=== PATIENT | male | born 1990 | race Caucasian/White ===

== ENCOUNTER 2016-12-12 01:11 | Emergency (ER) | payer OTHER ==
[~2016-12-12] VITALS: Ht 182.9 cm; Wt 65.0 kg
[~2016-12-12 01:11] MED LIST: CEPH500C2 PO; HMLI SC
[2016-12-12 01:20] VITALS: TEMP 36.9; Ht 182.9 cm; Wt 65.0 kg
[2016-12-12] MEDS ORDERED: ALBUT/IPRATROP 3MG/0.5MG NEB 3 ML VIAL INH STA (01:31)
[2016-12-12] MEDS ORDERED: DEXAMETHASONE SOD INJ 10 MG/ML VIAL IV ONE (01:45)
[2016-12-12] MEDS ORDERED: INSPMPHMLG SQ (01:48)
[2016-12-12] MEDS ORDERED: SODIUM CHLORIDE 0.9% 1000ML 1,000 ML IV STA (02:03)
[2016-12-12 02:08] LABS: BASO % 1.5 %; BASO ABS # 0.08 K/uL (0-0.2); COMPLETE YES; EOS % 2.3 %; HEMATOCRIT 42.5 % (42-52); IG% 0.6 %; LYMPH % 29.6 %; LYMPH ABS # 1.53 K/uL (1.2-3.4); MEAN CELL VOLUME 95.5 fL (80-100); MEAN CORPUSCULAR HEMOGLOBIN 32.6 pg (25-34); MEAN CORPUSCULAR HGB CONC 34.1 g/dl (32-36); MEAN PLATELET VOLUME 8.9 fL (7.4-10.4); MONO % 3.9 %; NEUT % 62.1 %; PLATELET COUNT 215 K/uL (130-400); RED BLOOD COUNT 4.45 M/uL (4.7-6.1); WHITE BLOOD COUNT 5.17 K/uL (4.8-10.8)
[2016-12-12 02:25] LABS: BUN/CREATININE RATIO 12.7 (10-20); CALCIUM 8.6 mg/dl (8.5-10.1); CREATININE 1.5 mg/dl (0.60-1.40); POTASSIUM 3.9 mmol/L (3.5-5.1)
[2016-12-12 02:36] LABS: BETA-HYDROXYBUTYRATE 3.34 mg/dL (0.2-2.81)
[2016-12-12 03:05] LABS: URINE APPEARANCE CLEAR (CLEAR); URINE BILIRUBIN NEG (NEG); URINE COLOR YELLOW; URINE EPITHELIAL CELL AUTO 0-5 /lpf (0-5); URINE NITRITE NEG (NEG); URINE SPECIFIC GRAVITY 1.034 (1.000-1.030); UROBILINOGEN NEG (NEG)
[2016-12-12] MEDS ORDERED: NovoLIN-R INSULIN PER UNIT CHARGE SC STA (03:05)
[2016-12-12 03:07] LABS: MANUAL MICROSCOPIC REQUIRED? NO; REVIEW REQ? NO
[2016-12-12 03:09] VITALS: BP 137/73; PULSE 99; O2SAT 97
[2016-12-12] MEDS ORDERED: ALBUTEROL HFA 8 GM INHALER INH STA (03:14)
[2016-12-12] MEDS ORDERED: AZITHROMYCIN 250 MG TAB PO STA (03:14)
[2016-12-12 03:25] LABS: VENOUS BLOOD GAS PCO2 36 mmHg (38.0-50.0); VENOUS BLOOD GAS PO2 66 mmHg
--- NOTE | 2016-12-12 03:34 | EMERGENCY ROOM VISIT NOTE ---
History First contact with patient: :24 Chief Complaint: COUGH Stated Complaint: TROUBLE BREATHING Nursing Triage Summary: Patient c/o non-productive cough that began a few days ago. States, "Tonight it got so bad that I almost passed out." History of Present Illness The patient is a 26 year old male who presents to the Emergency Room with complaints of cough, congestion with subjective fever and chills for the past few days. Patient states his blood sugars have been running around 200 which are normal per him. Patient continues to smoke. Patient states he feels lightheaded. Patient denies chest pain, dyspnea, abdominal pain, vomiting, diarrhea, neck stiffness, headache, syncope. Review of Systems See HPI for pertinent positives & negatives. A total of 10 systems reviewed and were otherwise negative. Past Medical/Surgical History Medical Problems: (1) Abscess of right lower leg (2) Abscess, neck (3) Diabetes (4) Heel pain (5) Hx MRSA infection Social History Smoking Status: Current Every Day Smoker Alcohol Use: occasionally Marital Status: in relationship Housing Status: lives with significant other Occupation Status: employed Current/Historical Medications Scheduled Insulin Human Lispro (Humalog), SQ BID Allergies Coded Allergies: Hydrocodone (Verified Adverse Reaction, Mild, ITCHING, 12/12/16) Physical Exam Vital Signs Date Time Temp Pulse Resp B/P Pulse Ox O2 Delivery O2 Flow Rate FiO2 12/12/16 03:09 99 18 137/73 97 Room Air 12/12/16 01:21 98 Room Air 12/12/16 01:20 36.9 99 18 146/89 98 Room Air Physical Exam VITALS: Vitals are noted on the nurse's note and reviewed by myself. Vital signs stable. GENERAL: White male with tobacco odor, in no acute distress, nondiaphoretic, well-developed well-nourished. SKIN: The skin was without rashes, erythema, edema, or bruising. There is no tenting of the skin. Capillary reflex less than 2 seconds. HEAD: Normocephalic atraumatic. EARS: External auditory canals clear, tympanic membranes pearly corbett without erythema or effusion bilaterally. EYES: Pupils equal round and reactive to light and accommodation. Conjunctivae without injection, sclerae without icterus. Extraocular movements intact. NOSE: Patent, turbinates without inflammation or discharge. No sinus tenderness. MOUTH: Mucous membranes mildly dry. Pharynx without erythema or exudate. Uvula midline. Airway patent. Tongue does not deviate. NECK: Supple without nuchal rigidity. No lymphadenopathy. No thyromegaly. Cervical spine is nontender. No JVD. HEART: Regular rate and rhythm without murmurs gallops or rubs. LUNGS: Diffuse inspiratory and end expiratory wheezes, without rales or rhonchi. No dullness to percussion. No retractions or accessory muscle use. ABDOMEN: Positive bowel sounds x 4. Normal tympanic percussion. Soft, nontender, without masses or organomegaly. Tay sign negative. No guarding or rebound tenderness. MUSCULOSKELETAL: No muscle atrophy, erythema, or edema noted. NEURO: Patient was alert and oriented to person place and time. Normal sensation to light and sharp touch. No focal neurological deficits. Medical Decision & Procedures Laboratory Results 12/12/16 01:45 Red Blood Count 4.45, Mean Corpuscular Volume 95.5, Mean Corpuscular Hemoglobin 32.6, Mean Corpuscular Hemoglobin Concent 34.1, Mean Platelet Volume 8.9, Neutrophils (%) (Auto) 62.1, Lymphocytes (%) (Auto) 29.6, Monocytes (%) (Auto) 3.9, Eosinophils (%) (Auto) 2.3, Basophils (%) (Auto) 1.5, Neutrophils # (Auto) 3.21, Lymphocytes # (Auto) 1.53, Monocytes # (Auto) 0.20, Eosinophils # (Auto) 0.12, Basophils # (Auto) 0.08 12/12/16 01:45 Test 12/12/16 01:45 12/12/16 02:40 12/12/16 03:10 12/12/16 03:12 White Blood Count 5.17 K/uL (4.8-10.8) Red Blood Count 4.45 M/uL (4.7-6.1) Hemoglobin 14.5 g/dL (14.0-18.0) Hematocrit 42.5 % (42-52) Mean Corpuscular Volume 95.5 fL (80-100) Mean Corpuscular Hemoglobin 32.6 pg (25-34) Mean Corpuscular Hemoglobin Concent 34.1 g/dl (32-36) Platelet Count 215 K/uL (130-400) Mean Platelet Volume 8.9 fL (7.4-10.4) Neutrophils (%) (Auto) 62.1 % Lymphocytes (%) (Auto) 29.6 % Monocytes (%) (Auto) 3.9 % Eosinophils (%) (Auto) 2.3 % Basophils (%) (Auto) 1.5 % Neutrophils # (Auto) 3.21 K/uL (1.4-6.5) Lymphocytes # (Auto) 1.53 K/uL (1.2-3.4) Monocytes # (Auto) 0.20 K/uL (0.11-0.59) Eosinophils # (Auto) 0.12 K/uL (0-0.5) Basophils # (Auto) 0.08 K/uL (0-0.2) RDW Standard Deviation 44.6 fL (36.4-46.3) RDW Coefficient of Variation 12.9 % (11.5-14.5) Immature Granulocyte % (Auto) 0.6 % Immature Granulocyte # (Auto) 0.03 K/uL (0.00-0.02) Anion Gap 13.0 mmol/L (3-11) Est Creatinine Clear Calc Drug Dose 69.2 ml/min Estimated GFR () 73.9 Estimated GFR (Non- 63.8 BUN/Creatinine Ratio 12.7 (10-20) Calcium Level 8.6 mg/dl (8.5-10.1) Beta-Hydroxybutyric Acid 3.34 mg/dL (0.2-2.81) Urine Color YELLOW Urine Appearance CLEAR (CLEAR) Urine pH 5.0 (4.5-7.5) Urine Specific [place] 1.034 (1.000-1.030) Urine Protein NEG (NEG) Urine Glucose (UA) 3+ (NEG) Urine Ketones NEG (NEG) Urine Occult Blood NEG (NEG) Urine Nitrite NEG (NEG) Urine Bilirubin NEG (NEG) Urine Urobilinogen NEG (NEG) Urine Leukocyte Esterase NEG (NEG) Urine WBC (Auto) 1-5 /hpf (0-5) Urine RBC (Auto) 0-4 /hpf (0-4) Urine Hyaline Casts (Auto) 0 /lpf (0-5) Urine Epithelial Cells (Auto) 0-5 /lpf (0-5) Urine Bacteria (Auto) NEG (NEG) Venous Blood pH 7.42 (7.36-7.41) Venous Blood Partial Pressure CO2 36 mmHg (38.0-50.0) Venous Blood Partial Pressure O2 66 mmHg Venous Blood HCO3 23 mmol/L Venous Blood Oxygen Saturation 92.0 % Venous Blood Base Excess -1.0 mmol/L Bedside Glucose 169 mg/dl (70-99) Medications Administered Medications (Trade) Dose Ordered Sig/Zane Route Start Time Stop Time Status Last Admin Dose Admin Albuterol/ Ipratropium (Duoneb) 3 ml NOW STAT INH 12/12/16 01:31 12/12/16 01:33 DC 12/12/16 01:45 3 ML Dexamethasone Sodium Phosphate 10 mg 10 mg NOW ONCE IV 12/12/16 01:45 12/12/16 01:46 DC 12/12/16 01:45 10 MG Sodium Chloride (Nss 1000ml) 1,000 ml @ 999 mls/hr Q1H1M STAT IV 12/12/16 02:03 12/12/16 03:03 DC 12/12/16 02:13 999 MLS/HR Azithromycin (Zithromax Tab) 500 mg NOW STAT PO 12/12/16 03:14 12/12/16 03:15 DC 12/12/16 03:21 500 MG Albuterol (Ventolin Hfa Inhaler) 2 puffs ONE STAT INH 12/12/16 03:14 12/12/16 03:15 DC 12/12/16 03:21 2 PUFFS ED Course Prior records/ancillary studies reviewed. Triage Nursing notes reviewed. The patient's history was concerning for respiratory difficulties. Differential diagnosis: Etiologies such as infections, reactive airway disease, pneumonia, pneumothorax , COPD, CHF, cardiac ischemia, pulmonary embolism, musculoskeletal, gastrointestinal, as well as others were entertained. Physical examination: As above. ER treatment provided: Nebulizer, Decadron On reassessment the patient felt better. Diagnostic interpretation by me: The labs revealed hyperglycemia without DKA. Imaging studies: Chest x-ray no acute consolidation or pneumothorax per my interpretation This appears to be consistent with bronchitis with hyperglycemia without DKA. Upon further questioning, the patient states he likes to see how high and low his blood sugars can get. He was informed this is very dangerous. He was advised to take his medications as directed from his family care doctor. Patient felt much better after being medicated as above. No pneumonia on x- ray. He was strongly encouraged to quit smoking and monitor his blood sugars. He was advised to take medications as directed and to follow-up family care in a few days or here in the ER sooner for chest pain, difficulty breathing, fevers , worsening signs or symptoms or as needed. By the evaluation outlined above emergent etiologies such as CHF, cardiac ischemia, pulmonary embolism, pneumonia, pneumothorax, musculoskeletal, serious bacterial infections, as well as others were deemed relatively unlikely. The pt informed about the findings as listed above. All questions were answered and pleased with the treatment. Return instructions were outlined and the patient was discharged in stable condition. Outpatient prescription management: Prednisone, Zithromax Referral: The patient was referred back to their primary care physician for follow-up in 2 to 3 days for a recheck of the current condition. Medical Decision As above Impression Primary Impression: Acute bronchitis Additional Impression: Hyperglycemia due to type 1 diabetes mellitus Departure Information Dispostion Home / Self-Care Condition GOOD Referrals No Doctor, Assigned (PCP) Patient Instructions My [facility] Additional Instructions Monitor your blood sugars. Albuterol Inhaler: Take 2 puffs four times daily for five days, then as needed. Prednisone 50mg: Once daily until the prescription is finished. It is best to take this earlier in the day as some patients note occasional difficulty falling asleep when taken in the late evening. Azithromycin(Zithromax) 250mg: Take one a day for 4 additional days. All antibiotics can cause diarrhea. If this occurs and you feel worse or it does not resolve in 1-2 days follow up with your doctor or return to the Emergency Department as this could be signs of serious underlying problems. Any medication can cause an allergic reaction, stop the pills immediately and return to the ER for rash, hives, breathing difficulties, or swelling. Acetaminophen(Tylenol) may be used for fever or pain. Use 1000mg every six hours as needed. Avoid using more than 3000mg in a 24 hour period. (AND/OR) Ibuprofen(Motrin, Advil) may be used for fever or pain. Use 600mg every six hours as needed. Take with food. Avoid using more than 2400mg in a 24 hour period. Do not use 2400mg per day for more than three consecutive days without physician direction. Prolonged inappropriate use can lead to stomach upset or ulcers. Rest and drink plenty of fluids. Avoid smoke/smoking, fumes, dust, or any triggers in the past that may have affected your breathing. Continue current medications. Return to the ER for chest pain, difficulty breathing, fevers, vomiting, worsening of your condition, or as needed. Follow up with your primary physician this week for a recheck of your current condition. Problem Qualifiers Primary Impression: Acute bronchitis Bronchitis organism: unspecified organism Qualified Codes: J20.9 - Acute bronchitis, unspecified
[2016-12-12] MEDS ORDERED: PRED50TA PO (03:39)
[2016-12-12] MEDS ORDERED: AZIT250T PO (03:39)
[2016-12-12 04:43] LABS: INFLUENZA A PCR Neg for Influ A (NEG); INFLUENZA B PCR Neg for Influ B (NEG)
--- NOTE | 2016-12-12 06:47 | DIAGNOSTIC IMAGING REPORT ---
CHEST 2 VIEWS ROUTINE CLINICAL HISTORY: cough/fever COMPARISON STUDY: 09/25/2016 FINDINGS: The cardiac and mediastinal contours are normal. There is no evidence of focal pulmonary consolidation. There is no evidence of failure. No pleural effusions are visualized.[ IMPRESSION: No active disease in the chest. Electronically signed by: Will Neri M.D. 12/12/2016 6:45 AM Dictated Date/Time: 12/12/2016 6:45 AM
[2016-12-27] MEDS ORDERED: INSDGIPEN SC (16:00)
[2016-12-27] MEDS ORDERED: CEFD1CAP14 PO (16:00)
[2017-04-15] MEDS ORDERED: LEVO-366 PO (13:56)
== END 2016-12-12 03:48 | disposition home or self-care (01) ==
LOC: C.EDB 01:11 → C.EDA 03:48
DX: J20.9 Acute bronchitis, unspecified (principal); R06.00 Dyspnea, unspecified; E11.65 Type 2 diabetes mellitus with hyperglycemia

== ENCOUNTER 2016-12-25 15:25 | Inpatient (IN) | payer OTHER ==
[~2016-12-25] VITALS: Ht 182.9 cm; Wt 61.5 kg
[2016-12-25] VITALS (14 sets, daily range): BP systolic 88–127; BP diastolic 45–73; PULSE 102–123; TEMP 36.6–36.8; O2SAT 93–100; BMI 18.0
[~2016-12-25 15:25] MED LIST changes: -CEPH500C2 PO; -HMLI SC; +INSPMPHMLG SQ
[2016-12-25] MEDS ORDERED: SODIUM CHLORIDE 0.9% 1000ML 1,000 ML IV STA ×2 (15:35→16:47)
[2016-12-25] MEDS ORDERED: MoRPHine SULFATE 4 MG/ML 1 ML CARP\\VIAL IV STA (15:35)
[2016-12-25] MEDS ORDERED: ONDANSETRON INJ 2 MG/ML 2 ML VIAL IV STA (15:35)
[2016-12-25 15:51] LABS: BASO % 0.8 %; BASO ABS # 0.09 K/uL (0-0.2); COMPLETE YES; EOS % 0.7 %; HEMATOCRIT 49.6 % (42-52); IG% 1.3 %; LYMPH % 26.2 %; LYMPH ABS # 2.93 K/uL (1.2-3.4); MEAN CELL VOLUME 94.1 fL (80-100); MEAN CORPUSCULAR HEMOGLOBIN 31.7 pg (25-34); MEAN CORPUSCULAR HGB CONC 33.7 g/dl (32-36); MONO % 4.2 %; NEUT % 66.8 %; PLATELET COUNT 289 K/uL (130-400); RED BLOOD COUNT 5.27 M/uL (4.7-6.1); WHITE BLOOD COUNT 11.19 K/uL (4.8-10.8)
[2016-12-25 16:44] LABS: BUN/CREATININE RATIO 16.6 (10-20); CALCIUM 9.5 mg/dl (8.5-10.1); POTASSIUM 4.7 mmol/L (3.5-5.1)
[2016-12-25] MEDS ORDERED: INSULIN IV INFUSION PROTOCOL STA ×2 (16:47→17:46)
[2016-12-25] MEDS ORDERED: DKA GOAL RANGE 150-250 mg/dl 1 EA ONE ×2 (17:00→18:00)
[2016-12-25] MEDS ORDERED: MODERATE STRESS LEVEL ONE (17:00)
[2016-12-25 17:22] LABS: BETA-HYDROXYBUTYRATE 104.48 mg/dL (0.2-2.81)
[2016-12-25 17:28] LABS: VEN BLD GAS O2 SATURATION 89.1 %; VEN BLOOD GAS BASE EXCESS -16.9 mmol/L
--- NOTE | 2016-12-25 17:31 | EMERGENCY ROOM VISIT NOTE ---
History First contact with patient: 15:27 Chief Complaint: HYPERGLYCEMIA Stated Complaint: ABD PAIN Nursing Triage Summary: PT PRESENTS VIA ALS FROM HOME. PT IS A TYPE I DIABETIC, LAST NIGHT BSG IN THE 200'S, NO ISSUES. THIS AM PT STARTED VOMITING AT 0930 AND IS C/O ABDOMINAL PAIN 07/31. PT TOOK HIS NOVOLOG THIS AM, 25 UNITS. BSG EN ROUTE 549. PT PRESENTS AGITATED, UNWILLING TO DISCUSS HIS CARE OR NEEDS, VOMITING AND C/O ABDOMINAL PAIN. History of Present Illness The patient is a 26 year old male who presents to the Emergency Room via ALS for evaluation of vomiting and hyperglycemia. The patient is a type I diabetic. He reports that last night, his blood glucose were in the 200s, which is normal for him. He reports that this morning he began to have nausea and vomiting and is complaining of generalized abdominal pain which comes and goes. He reports he took 25 units of NovoLog this morning, which is his usual dose. Per EMS, his blood glucose was 549 [address] route[address] The patient reports he has been in DKA before and this feels similar. He denies any headache, neck pain, chest pain, shortness of breath, numbness, weakness, fevers or chills. Review of Systems A complete 10-point Review of Systems was discussed with the patient, with pertinent positives and negatives listed in the History of Present Illness. All remaining Review of Systems questions can be considered negative unless otherwise specified. Past Medical/Surgical History Medical Problems: (1) Abscess of right lower leg (2) Abscess, neck (3) Diabetes (4) DKA (diabetic ketoacidoses) (5) Heel pain (6) Hx MRSA infection Social History Smoking Status: Current Every Day Smoker Alcohol Use: occasionally Marital Status: in relationship Housing Status: lives with significant other Occupation Status: employed Current/Historical Medications Scheduled Insulin Human Lispro (Humalog), SQ BID Allergies Coded Allergies: Hydrocodone (Verified Adverse Reaction, Mild, ITCHING, 12/12/16) Physical Exam Vital Signs Date Time Temp Pulse Resp B/P Pulse Ox O2 Delivery O2 Flow Rate FiO2 12/25/16 15:38 36.6 108 22 151/77 97 Room Air Physical Exam VITALS: Vitals are noted on the nurse's note and reviewed by myself. Vital signs stable. GENERAL: This is a 26-year-old male, agitated and actively vomiting, well- developed well-nourished. SKIN: Capillary reflex less than 2 seconds. HEENT: Normocephalic. PERRLA. EOMI. Nares patent. Mucous membranes moist. Neck is supple without nuchal rigidity. HEART: Regular rate and rhythm without murmurs gallops or rubs. LUNGS: Clear to auscultation bilaterally without wheezes, rales or rhonchi. No retractions or accessory muscle use. ABDOMEN: Positive bowel sounds x 4. Soft, nondistended and nontender. NEURO: Patient was alert and oriented to person place and time. Normal sensation to light and sharp touch. No focal neurological deficits. Medical Decision & Procedures Laboratory Results 12/25/16 15:30 Red Blood Count 5.27, Mean Corpuscular Volume 94.1, Mean Corpuscular Hemoglobin 31.7, Mean Corpuscular Hemoglobin Concent 33.7, Mean Platelet Volume 9.0, Neutrophils (%) (Auto) 66.8, Lymphocytes (%) (Auto) 26.2, Monocytes (%) (Auto) 4.2, Eosinophils (%) (Auto) 0.7, Basophils (%) (Auto) 0.8, Neutrophils # (Auto) 7.48, Lymphocytes # (Auto) 2.93, Monocytes # (Auto) 0.47, Eosinophils # (Auto) 0.08, Basophils # (Auto) 0.09 Test 12/25/16 15:30 12/25/16 17:10 White Blood Count 11.19 K/uL (4.8-10.8) Red Blood Count 5.27 M/uL (4.7-6.1) Hemoglobin 16.7 g/dL (14.0-18.0) Hematocrit 49.6 % (42-52) Mean Corpuscular Volume 94.1 fL (80-100) Mean Corpuscular Hemoglobin 31.7 pg (25-34) Mean Corpuscular Hemoglobin Concent 33.7 g/dl (32-36) Platelet Count 289 K/uL (130-400) Mean Platelet Volume 9.0 fL (7.4-10.4) Neutrophils (%) (Auto) 66.8 % Lymphocytes (%) (Auto) 26.2 % Monocytes (%) (Auto) 4.2 % Eosinophils (%) (Auto) 0.7 % Basophils (%) (Auto) 0.8 % Neutrophils # (Auto) 7.48 K/uL (1.4-6.5) Lymphocytes # (Auto) 2.93 K/uL (1.2-3.4) Monocytes # (Auto) 0.47 K/uL (0.11-0.59) Eosinophils # (Auto) 0.08 K/uL (0-0.5) Basophils # (Auto) 0.09 K/uL (0-0.2) RDW Standard Deviation 43.9 fL (36.4-46.3) RDW Coefficient of Variation 12.6 % (11.5-14.5) Immature Granulocyte % (Auto) 1.3 % Immature Granulocyte # (Auto) 0.14 K/uL (0.00-0.02) Prothrombin Time 10.2 SECONDS (9.0-12.0) Prothromb Time International Ratio 1.0 (0.9-1.1) Activated Partial Thromboplast Time 23.1 SECONDS (21.0-31.0) Partial Thromboplastin Ratio 0.9 Total Bilirubin 1.5 mg/dl (0.2-1) Aspartate Amino Transf (AST/SGOT) 57 U/L (15-37) Alanine Aminotransferase (ALT/SGPT) 87 U/L (12-78) Alkaline Phosphatase 113 U/L (45-117) Total Protein 8.7 gm/dl (6.4-8.2) Albumin 4.3 gm/dl (3.4-5.0) Globulin 4.4 gm/dl (2.5-4.0) Albumin/Globulin Ratio 1.0 (0.9-2) Lipase 72 U/L (73-393) Chemistry Specimen Hemolysis Venous Blood pH 7.21 (7.36-7.41) Venous Blood Partial Pressure CO2 23 mmHg (38.0-50.0) Venous Blood Partial Pressure O2 67 mmHg Venous Blood HCO3 9 mmol/L Venous Blood Oxygen Saturation 89.1 % Venous Blood Base Excess -16.9 mmol/L Medications Administered Medications (Trade) Dose Ordered Sig/Zane Route Start Time Stop Time Status Last Admin Dose Admin Sodium Chloride (Nss 1000ml) 1,000 ml @ 999 mls/hr Q1H1M STAT IV 12/25/16 15:35 12/25/16 16:35 DC 12/25/16 15:52 999 MLS/HR Morphine Sulfate (MoRPHine SULFATE INJ) 4 mg NOW STAT IV 12/25/16 15:35 12/25/16 15:37 DC 12/25/16 15:53 4 MG Ondansetron HCl (Zofran Inj) 4 mg NOW STAT IV 12/25/16 15:35 12/25/16 15:37 DC 12/25/16 15:52 4 MG Miscellaneous (Insulin Protocol Dka Goal Range) 1 ea ONE ONCE N/A 12/25/16 17:00 12/25/16 17:01 DC 12/25/16 17:00 1 EA Insulin Human Regular (Insulin IV Infusion Protocol) 1 ea NOW STAT N/A 12/25/16 16:47 12/25/16 16:51 DC 12/25/16 16:47 1 EA Miscellaneous 1 ea 1 ea ONE ONCE N/A 12/25/16 17:00 12/25/16 17:01 DC 12/25/16 17:00 1 EA Sodium Chloride (Nss 1000ml) 1,000 ml @ 999 mls/hr Q1H1M STAT IV 12/25/16 16:47 12/25/16 17:47 DC 12/25/16 16:47 999 MLS/HR Medical Decision Differential diagnosis includes hyperglycemia, diabetic ketoacidosis, infection , metabolic abnormality, among others. The patient was evaluated as above. Labs were drawn and IV access was obtained. Imaging studies were performed and read by radiology as above. The patient was medicated as above. The patient was reassessed multiple times during their stay in the emergency department and remained in stable condition. The patient is a 26-year-old male who presents today complaining of hyperglycemia and vomiting. Labs revealed a blood glucose of 593 with significant elevation of beta hydroxybutyrate. Bicarbonate was found to be low at 15. Patient does have an anion gap of 27. VBGs were drawn and were pending. Potassium was within normal limits and the insulin bolus and drip were ordered. The patient was medicated with a total of 2 L normal saline solution in the emergency department. Case was discussed with the hospitalist, Dr. Peterson, who agreed to evaluate the patient for admission. The patient's case was reviewed with Dr. Schaeffer, ED attending physician, who agreed with my assessment and treatment plan. Impression Primary Impression: DKA (diabetic ketoacidoses) Critical Care I have personally spent greater than 30 minutes of critical care time in the direct management of this patient. This includes bedside care, interpretation of diagnostic studies, and testing, discussion with consultants, patient, and family members, and other required patient management activities. This 30 minutes is in excess of all separately billable procedures. Departure Information Referrals Nakul Garcia M.D. (PCP) Patient Instructions My [facility] Problem Qualifiers Primary Impression: DKA (diabetic ketoacidoses) Diabetes mellitus type: type 1 Diabetes mellitus complication detail: without coma Qualified Codes: E10.10 - Type 1 diabetes mellitus with ketoacidosis without coma
[2016-12-25] MEDS ORDERED: DEXTROSE 50% 50 ML SYR IV PRN (17:45)
[2016-12-25] MEDS ORDERED: PROMETHAZINE HCL INJ 25 MG/ML 1 ML VIAL IM STA (17:45)
[2016-12-25] MEDS ORDERED: INSULIN HUMAN REGULAR IV BOLUS 3 UNIT in SYRINGE 0 ML IV ONE (17:45)
[2016-12-25] MEDS ORDERED: INSULIN REGULAR 250 UNITS in SODIUM CHLORIDE 0.9% 250ML 250 ML IV SCH (17:45)
[2016-12-25] MEDS ORDERED: GLUCAGON FOR INJ 1 MG VIAL SQ PRN (17:45)
[2016-12-25] MEDS ORDERED: GLUCOSE 40% GEL 15 GM TUBE PO PRN (17:45)
[2016-12-25] MEDS ORDERED: GLUCOSE 10 TABS/TUBE PO PRN (17:45)
[2016-12-25] MEDS ORDERED: SODIUM CHLORIDE 0.9% 1000ML 1,000 ML IV SCH (17:45)
[2016-12-25] MEDS ORDERED: ONDANSETRON INJ 2 MG/ML 2 ML VIAL IV PRN (17:45)
[2016-12-25] MEDS ORDERED: MoRPHine SULFATE 4 MG/ML 1 ML CARP\\VIAL IV PRN (18:00)
[2016-12-25] MEDS ORDERED: DiphenhydrAMINE HCL 50 MG/ML VIAL IV PRN (18:00)
[2016-12-25] MEDS ORDERED: MoRPHine SULFATE 10 MG/ML CARP/VIAL IV PRN (18:00)
[2016-12-25] MEDS ORDERED: ACETAMINOPHEN 325 MG TAB PO PRN (18:00)
[2016-12-25] MEDS ORDERED: INSULIN ASPART 100 UNITS/ML 3 ML PEN SC SCH (18:40)
[2016-12-25] MEDS ORDERED: NURSING VERBAL MED ORDER ONE ×2 (19:00→22:15)
[2016-12-25 19:13] LABS: PARTIAL THROMBOPLASTIN RATIO 0.9; PROTHROMBIN TIME (PATIENT) 10.2 SECONDS (9.0-12.0)
[2016-12-25] MEDS: ENOXAPARIN 40 MG/0.4 ML SYR SQ SCH (19:56)
[2016-12-25] MEDS: PANTOprazole INJ 40 MG in SYRINGE 0 ML IV SCH (19:56)
[2016-12-25] MEDS ORDERED: SODIUM CHLOR 0.45% + 20MEQ KCL 1,000 ML IV SCH (20:00)
[2016-12-25 20:04] LABS: URINE APPEARANCE CLEAR (CLEAR); URINE BILIRUBIN NEG (NEG); URINE COLOR YELLOW; URINE EPITHELIAL CELL AUTO 0-5 /lpf (0-5); URINE NITRITE NEG (NEG); URINE SPECIFIC GRAVITY 1.022 (1.000-1.030); UROBILINOGEN NEG (NEG); ZZUR CULT IF INDIC CLEAN CATCH NO
[2016-12-25 20:06] LABS: MANUAL MICROSCOPIC REQUIRED? NO; REVIEW REQ? NO
[2016-12-25 20:43] LABS: BUN/CREATININE RATIO 15.1 (10-20); CREATININE 1.1 mg/dl (0.60-1.40)
[2016-12-25 20:57] LABS: CALCIUM 7.9 mg/dl (8.5-10.1)
[2016-12-25] MEDS: INSULIN ASPART 100 UNITS/ML 3 ML PEN SC SCH (21:00)
[2016-12-25 21:19] LABS: BETA-HYDROXYBUTYRATE 98.68 mg/dL (0.2-2.81)
--- NOTE | 2016-12-25 21:59 | HISTORY & PHYSICAL EXAMINATION ---
DATE OF ADMISSION: 12/25/2016 CHIEF COMPLAINT: Nausea. HISTORY OF PRESENT ILLNESS: This is a 26-year-old male patient who presented to the Emergency Department with nausea, vomiting and suspicion that he was having an elevated sugar. He has had diabetes type 1 since age [age] and has numerous times had elevated sugars and apparently episodes of DKA. PAST MEDICAL HISTORY: Significant for; diabetic ketoacidosis and type 1 diabetes. He had an abscess of his neck. PAST SURGERIES: None reported. MEDICATIONS: He uses insulin. SOCIAL HISTORY: The patient is single. He is with his girlfriend. Currently is unemployed. He uses alcohol recreationally. He never reported illicit substances. He is a smoker. FAMILY HISTORY: Noncontributory. REVIEW OF SYSTEMS: A complete 10-system review was performed and was negative other than the positives that are to be placed in the HPI. He told me that he started to feel ill this morning. PHYSICAL EXAMINATION: VITAL SIGNS: Temperature is 36.6, pulse is 108, respiratory rate 22, blood pressure 151/77 with a pulse ox of 97% on room air. GENERAL: The patient is lying in bed, in mild distress secondary to abdominal pain and vomiting. HEENT: TMs are intact. No inflammation. Extraocular muscles are intact. Pupils are equal, round and reactive to light and accommodation. His mucous membranes were dry. NECK: Showed no JVD or lymphadenopathy. LUNGS: Clear to auscultation bilaterally. No rales, rhonchi or wheezes. HEART: Regular, normal S1, S2, without murmurs, rubs or gallops. ABDOMEN: Soft, nontender and nondistended, positive bowel sounds. EXTREMITIES: No clubbing, cyanosis or edema. NEUROLOGIC: Cranial nerves II-XII are grossly intact and nonfocal. SKIN: Warm and dry, without rashes. PSYCHIATRIC: The patient was quiet and resting. He would feel nauseated if he moved around too much. LABORATORY DATA: INR of 1.0. White count 11.19, hemoglobin 16.7, hematocrit 49.6 and platelet count of 289,000. Blood gas showed a pH of 7.21, CO2 of 23, pO2 of 67, base of 9. Sodium 132, potassium 4.7, chloride 90, CO2 15, anion gap 27, total bilirubin 1.5, AST of 57, ALT of 87 lipase is 72. His sugar was 593. His beta hydroxybutyric acid was 104.48, BUN 17, creatinine 1.0. Urinalysis showed trace protein, +4 ketones and trace occult blood. ASSESSMENT: 1. Diabetic ketoacidosis; based on his initial numbers we will call him moderate with a history of type 1 diabetes. 2. Nausea and vomiting. 3. Dehydration. PLAN: The patient is admitted to the intensive care unit with an accounting professor consult. He is placed on an insulin drip and given generous IV fluids. His sugars will be monitored every hour until he becomes more stabilized. We will follow his electrolytes and serum acetone level. He is given antiemetics, pain control and Protonix for gastritis prophylaxis, subQ Lovenox for DVT prophylaxis as well as TEDs and SCDs. I did speak with Dr. Hunter, the accounting professor regarding the case.
[2016-12-25] MEDS: D5W AND 1/2NSS + 20MEQ KCL 1,000 ML IV SCH (22:51)
--- NOTE | 2016-12-25 23:07 | CRITICAL CARE CONSULTATION ---
DATE OF CONSULTATION: 12/25/2016 CHIEF COMPLAINT: Abdominal pain. HISTORY OF PRESENT ILLNESS: Mr. Carrion is a 26-year-old type 1 diabetic since the age of 4, who presented to the Emergency Department today complaining of abdominal pain. According to the Emergency Department notes, he had blood sugars in the 200s last night and took his 25 units of NovoLog this morning. He started having abdominal pain 10/10 this morning as well. He has been having vomiting and dry heaving. When I tried to interview him in the Emergency Department, he was lying half off of the stretcher and dry heaving. From what I can tell the abdominal pain is at the top of his abdomen and it is constant. He may have vomited some coffee ground material, but he is not really sure. He was not able to tell me how many times he has vomited, but denies seeing any blood. He was unable to tell me whether or not he has been taking his insulin properly or what his dose is before he suddenly got up and went into the bathroom, telling me he had fecal incontinence. He denied shortness of breath, frequency or urgency. He did admit to feeling thirsty. In the ER, he received 1 liter of IV fluids as well as 8 mg of Zofran. Insulin had been ordered, but he had not received it yet. He was just beginning his second liter of fluids when I saw him. PAST MEDICAL HISTORY: Diabetes mellitus type 1 since the age of 4, bronchitis, otitis externa, cellulitis, neck abscess and right lower extremity abscess. ALLERGIES: HYDROCODONE WHICH CAUSES ITCHING. OUTPATIENT MEDICATIONS: According to his listed pharmacy are; Humalog up to 100 units daily last filled on December 13 and Lantus up to 35 mg at bedtime as directed none filled since August of last year. SOCIAL HISTORY: He has smoked 1 pack of cigarettes per day for 12 years and rarely drinks alcohol. He lives with his best friend. FAMILY HISTORY: Noncontributory. REVIEW OF SYSTEMS: Limited due to his nausea and distraction from it. PHYSICAL EXAMINATION: VITAL SIGNS: Temperature 36.6, heart rate 108, respiratory rate 22, blood pressure 151/77 and oxygen saturation 97% on room air. HEENT: Not able to be examined as he would not turn over on the bed. LUNGS: Clear to auscultation bilaterally. HEART: Tachycardic and regular. ABDOMEN: Not able to be performed as he would not turn over. EXTREMITIES: Warm. No edema. He has multiple tattoos. LABORATORY DATA: White blood cell count 11.19, hemoglobin 16.7, hematocrit 49.6 and platelets 289. Sodium 132, potassium 4.7, chloride 90, CO2 15, BUN 17, creatinine 1, blood sugar 593, total bilirubin 1.5, AST 57, ALT 87, total protein 8.7, lipase 72. Beta-hydroxybutyrate 104. Urinalysis; pending. pH 7.21, pCO2 23, pO2 67 and HCO3 9. There is no new imaging data presently. IMPRESSION: 1. Diabetic ketoacidosis. 2. Abdominal pain, likely secondary to #1. 3. Pseudohyponatremia. 4. Nausea and vomiting. 5. Tobacco use. 6. History of neck and lower extremity abscesses. PLAN: 1. I asked the Emergency Department to give him some Phenergan. 2. Re-evaluate his exam when he is more comfortable and gain and additional history. 3. Continue volume resuscitation with IV fluids. 4. Check chemistries every 4 hours. 5. Insulin infusion. 6. Change IV fluids to include dextrose once the blood sugar is at 250 or below. 7. IV Proton pump inhibitor b.i.d. 8. SCDs for DVT prophylaxis. 9. Check hemoglobin A1c. 10. Consider morphine for pain control. 11. Maintain n.p.o. for now. I discussed the patient's care with Dr. Omalley. Again, I will re-evaluate the patient when he is able to give a more detailed history and will also re-examine him then. Critical care time; 35 minutes.
[2016-12-26] VITALS (13 sets, daily range): BP systolic 97–126; BP diastolic 51–83; PULSE 85–115; TEMP 36.3–37.2; O2SAT 96–100; Ht 182.9 cm; Wt 61.5 kg
[2016-12-26 01:01] LABS: BUN/CREATININE RATIO 10.7 (10-20); CREATININE 1.1 mg/dl (0.60-1.40); HEMATOCRIT 40.7 % (42-52); MEAN CELL VOLUME 92.9 fL (80-100); MEAN CORPUSCULAR HEMOGLOBIN 31.5 pg (25-34); MEAN CORPUSCULAR HGB CONC 33.9 g/dl (32-36); MEAN PLATELET VOLUME 8.4 fL (7.4-10.4); PLATELET COUNT 265 K/uL (130-400); POTASSIUM 4.3 mmol/L (3.5-5.1); RED BLOOD COUNT 4.38 M/uL (4.7-6.1); WHITE BLOOD COUNT 29.39 K/uL (4.8-10.8)
[2016-12-26 01:03] LABS: BASO % 0.3 %; BASO ABS # 0.08 K/uL (0-0.2); COMPLETE YES; EOS % 0.1 %; IG% 1.6 %; LYMPH % 9.7 %; LYMPH ABS # 2.84 K/uL (1.2-3.4); MONO % 6.1 %; NEUT % 82.2 %
[2016-12-26 01:30] LABS: BETA-HYDROXYBUTYRATE 56.06 mg/dL (0.2-2.81)
[2016-12-26] MEDS ORDERED: COUGH DROP (SUGAR FREE) LOZ 24 LOZ/1 BOX ONE (04:23)
[2016-12-26] MEDS ORDERED: COUGH DROP (SUGAR FREE) LOZ 24 LOZ/1 BOX PO PRN (04:45)
[2016-12-26] MEDS: D5W AND 1/2NSS + 20MEQ KCL 1,000 ML IV SCH ×3 (05:59→13:28)
[2016-12-26 07:24] LABS: HEMATOCRIT 39.2 % (42-52); MEAN CELL VOLUME 94.9 fL (80-100); MEAN CORPUSCULAR HEMOGLOBIN 32.2 pg (25-34); MEAN CORPUSCULAR HGB CONC 33.9 g/dl (32-36); MEAN PLATELET VOLUME 8.3 fL (7.4-10.4); PLATELET COUNT 218 K/uL (130-400); RED BLOOD COUNT 4.13 M/uL (4.7-6.1); WHITE BLOOD COUNT 24.03 K/uL (4.8-10.8)
[2016-12-26 07:43] LABS: BUN/CREATININE RATIO 7.2 (10-20); CALCIUM 7.9 mg/dl (8.5-10.1); CREATININE 1.2 mg/dl (0.60-1.40); MAGNESIUM 2.1 mg/dl (1.8-2.4); PHOSPHORUS 2.4 mg/dl (2.5-4.9); POTASSIUM 3.8 mmol/L (3.5-5.1)
[2016-12-26] MEDS: INSULIN ASPART 100 UNITS/ML 3 ML PEN SC SCH ×4 (08:00→21:32)
[2016-12-26] MEDS ORDERED: PHARMACY GLYCEMIC MGMT CONSULT PRN (08:12)
[2016-12-26] MEDS: PANTOprazole INJ 40 MG in SYRINGE 0 ML IV SCH ×2 (08:57→21:47)
--- NOTE | 2016-12-26 08:57 | DIAGNOSTIC IMAGING REPORT ---
CHEST ONE VIEW PORTABLE HISTORY: cough COMPARISON: Chest 12/12/2016. FINDINGS: No pleural effusions. No pneumothorax. The heart is borderline enlarged. This remains unchanged. No new focal lung consolidations to suggest pneumonia. IMPRESSION: Stable cardiac prominence. No focal lung consolidations. Electronically signed by: Aniket Elena M.D. 12/26/2016 8:55 AM Dictated Date/Time: 12/26/2016 8:54 AM
[2016-12-26] MEDS ORDERED: CHLORASEPTIC 1.4% SOLN 180 ML BTL MT PRN (09:30)
[2016-12-26] MEDS ORDERED: ACETAMINOPHEN IV 650 MG / 65ML IV ONE (09:45)
--- NOTE | 2016-12-26 09:49 | CRITICAL CARE PROGRESS NOTE ---
DATE: 12/26/2016 DATE: 12/26/2016. GENERAL INFORMATION: There were no acute events overnight. He has been maintained on an insulin infusion as well as D5 half normal saline with 20 mEq of potassium per liter at 200 mL per hour. He denies nausea or vomiting and his abdominal pain has resolved. His biggest complaint is a sore throat. He reports he was feeling fine prior to waking up feeling lousy. Yesterday he took 10 units of Humalog but did not check his blood sugar in the morning. He did not have a sore throat prior to starting to vomit and he denies chest pain, shortness of breath, productive cough. PHYSICAL EXAMINATION: VITAL SIGNS: Temperature 37.2, heart rate 104 to 106, respiratory rate 12-14, blood pressure 88-108/40s-60s. Oxygen saturation 98% on room air. 24-hour fluid balance positive 1.2 liters. GENERAL: He will awaken easily and overall looks sickly. HEAD, EYES, EARS, NOSE, AND THROAT: Posterior pharynx was a little bit difficult to visualize and mildly erythematous. NECK: Without adenopathy. LUNGS: Clear to auscultation bilaterally. No rales, rhonchi or wheezes. HEART: Tachycardic and regular. ABDOMEN: Flat, soft, nondistended, nontender. Active bowel sounds. EXTREMITIES: Very thin, warm. No edema. LABORATORY DATA: Sodium 144, potassium 3.8, chloride 111, CO2 20, BUN 9, creatinine 1.2, blood sugar 146, calcium 7.9, phosphorus 2.4, magnesium 2.1. White blood cell count 24.03, hemoglobin 13, hematocrit 39.2, platelets 218. MEDICATIONS AND INFUSIONS: Acetaminophen, Benadryl, Lovenox, insulin sliding scale, insulin infusion, menthol lozenges, morphine, Zofran, Protonix, IV fluids. IMAGING: Portable chest x-ray from this morning shows no acute infiltrate or acute abnormality. IMPRESSION: 1. Diabetic ketoacidosis with improvement of his anion gap. 2. Nausea and vomiting, resolved. 3. Abdominal pain, resolved. 4. Sore throat, likely secondary to the vomiting yesterday. 5. Leukocytosis. He has been afebrile. Chest x-ray is clear. Urinalysis yesterday unremarkable regarding any traces of infection. 6. History of tobacco use. He has declined a nicotine patch. 7. Hypophosphatemia and hypokalemia. PLAN: 1. Continue insulin infusion and check a PRP this afternoon. 2. Replete electrolytes. 3. Rapid strep test. 4. Chloraseptic spray and Tylenol for pain. 5. Continue DVT and GI prophylaxis. 6. senior health educator is seeing him presently. 7. Continue IV fluids for now and plan to decrease them this afternoon when he is started on subcutaneous insulin. 8. Glycemic consult and check HbA1C. I expect he may be able to be transferred from the Intensive Care Unit later today. DEBBIE
[2016-12-26] MEDS ORDERED: INSULIN REGULAR 250 UNITS in SODIUM CHLORIDE 0.9% 250ML 250 ML IV SCH (11:30)
[2016-12-26 13:42] LABS: BUN/CREATININE RATIO 7.6 (10-20); CALCIUM 7.9 mg/dl (8.5-10.1); CREATININE 1.1 mg/dl (0.60-1.40); MAGNESIUM 2.1 mg/dl (1.8-2.4); PHOSPHORUS 2.3 mg/dl (2.5-4.9); POTASSIUM 3.8 mmol/L (3.5-5.1)
[2016-12-26] MEDS ORDERED: POTASSIUM PHOS 3 MMOL/1 ML INFUSION IV STA (13:46)
--- NOTE | 2016-12-26 13:47 | Pharmacy Progress Note ---
Glycemic Control Intl Consult Date of Service Dec 26, 2016. Scope Glycemic Pharmacist consulted for glycemic control and to write orders per [facility] inpatient glycemic control protocol Objective Weight (Kilograms): 61.500 Accuchecks BSG (last 24hrs): Test 12/25/16 15:30 12/25/16 15:52 12/25/16 18:46 12/25/16 19:43 Random Glucose 593 mg/dl (70-99) Bedside Glucose 535 mg/dl (70-99) 476 mg/dl (70-99) 420 mg/dl (70-99) Test 12/25/16 19:49 12/25/16 20:45 12/25/16 21:35 12/25/16 22:45 Random Glucose 411 mg/dl (70-99) Bedside Glucose 226 mg/dl (70-99) 209 mg/dl (70-99) 139 mg/dl (70-99) Test 12/25/16 23:05 12/25/16 23:22 12/26/16 00:16 12/26/16 00:25 Bedside Glucose 137 mg/dl (70-99) 159 mg/dl (70-99) 217 mg/dl (70-99) Random Glucose 229 mg/dl (70-99) Test 12/26/16 01:12 12/26/16 02:09 12/26/16 03:15 12/26/16 04:15 Bedside Glucose 152 mg/dl (70-99) 129 mg/dl (70-99) 156 mg/dl (70-99) 156 mg/dl (70-99) Test 12/26/16 05:31 12/26/16 06:30 12/26/16 07:15 12/26/16 07:38 Bedside Glucose 150 mg/dl (70-99) 150 mg/dl (70-99) 129 mg/dl (70-99) Random Glucose 146 mg/dl (70-99) Test 12/26/16 08:40 12/26/16 09:45 12/26/16 13:00 Bedside Glucose 136 mg/dl (70-99) 132 mg/dl (70-99) Laboratory Data (last 24hrs) Test 12/25/16 15:30 12/25/16 19:49 12/26/16 00:25 12/26/16 07:15 Anion Gap 27.0 mmol/L 24.0 mmol/L 19.0 mmol/L 13.0 mmol/L BUN/Creatinine Ratio 16.6 15.1 10.7 7.2 Blood Urea Nitrogen 17 mg/dl 17 mg/dl 12 mg/dl 9 mg/dl Creatinine 1.00 mg/dl 1.10 mg/dl 1.10 mg/dl 1.20 mg/dl Potassium Level 4.7 mmol/L 4.0 mmol/L 4.3 mmol/L 3.8 mmol/L Sodium Level 132 mmol/L 141 mmol/L 144 mmol/L 144 mmol/L White Blood Count 11.19 K/uL 29.39 K/uL 24.03 K/uL Red Blood Count 5.27 M/uL 4.38 M/uL Hemoglobin 16.7 g/dL 13.8 g/dL Hematocrit 49.6 % 40.7 % Mean Corpuscular Volume 94.1 fL 92.9 fL Mean Corpuscular Hemoglobin 31.7 pg 31.5 pg Mean Corpuscular Hemoglobin Concent 33.7 g/dl 33.9 g/dl Platelet Count 289 K/uL 265 K/uL Mean Platelet Volume 9.0 fL 8.4 fL Neutrophils (%) (Auto) 66.8 % 82.2 % Lymphocytes (%) (Auto) 26.2 % 9.7 % Monocytes (%) (Auto) 4.2 % 6.1 % Eosinophils (%) (Auto) 0.7 % 0.1 % Basophils (%) (Auto) 0.8 % 0.3 % Neutrophils # (Auto) 7.48 K/uL 24.19 K/uL Lymphocytes # (Auto) 2.93 K/uL 2.84 K/uL Monocytes # (Auto) 0.47 K/uL 1.78 K/uL Eosinophils # (Auto) 0.08 K/uL 0.03 K/uL Basophils # (Auto) 0.09 K/uL 0.08 K/uL Test 12/26/16 13:00 HbA1c Pending Test 12/26/16 13:00 Recent Pertinent Medications Outpatient Anti-diabetic Regimen: * Humalog BID The patient is currently receiving: * Insulin gtt * Moderate stress * Goal 140-180 mg/dL * Currently running at 1.0 units/hr (last BSG 132 mg/dL) Risk Factors for Insulin Resistance: * Infection: ? pharyngitis (rapid Group A Strep test negative) * IVF: D5 1/2NS + KCl 20 mEq/L @ 200 mL/hr * Diet: T1DM Assessment & Plan ASSESSMENT: * ADA & AACE recommend a goal blood sugar range 140-180 mg/dl for the majority of critically ill & non-critically ill patients. However, more stringent targets may be selected in individual cases. * 26 yo M with type 1 diabetes admitted with DKA. * HbA1c pending, but most recent ~5 months ago 10.3%. * Patient likely not well controlled as outpatient. Only receives Humalog - no basal insulin. Per Dr. Hunter, patient last filled basal insulin (Lantus) in August. Unsure if patient obtains free samples? Cost may be an issue. * Patients with type 1 diabetes need basal insulin to prevent severe complications like DKA. Plan will need to be clarified prior to discharge. * Patient ready to transition off of insulin drip at this time (anion gap 11, CO2 21). Spoke w Dr. Hunter who agrees and is aware. * Will start with Lantus about 1/2 of total daily projected requirements based on insulin gtt rate. This will be less than the projected weight-based estimate. * Will start Novolog at weight-based estimate, stress 2. * High goal range initially to prevent hypoglycemia * Two overnight checks * Spoke w Dr. Hunter - eliminating dextrose in IVF PLAN FOR INPATIENT GLYCEMIC CONTROL: * Basal insulin with LANTUS 14 units SQ x1 now. Ongoing order to be determined starting 3/8 AM. * Stop insulin drip 3 hr after administration of Lantus, or sooner per protocol based on BSG * Correctional Insulin with NOVOLOG per scale ACHS plus 0000,0400 checks * Goal Range: Low 140 mg/dL - High 180 mg/dL * Correction Factor: 40 mg/dL/unit * Nutritional / Prandial insulin per carb ratio of 1 unit per 13 grams CHO consumed * Please note that the plan above was derived based on current level of insulin resistance and hospital stress. These recommendations are appropriate for inpatient admission only. Plan of care upon discharge will need to be reassessed to avoid potential outpatient hypo/hyperglycemia. Thank you.
[2016-12-26 13:48] LABS: ESTIMATED AVERAGE GLUCOSE 272 mg/dl; HA1C FLAG Normal (Normal)
[2016-12-26] MEDS ORDERED: INSULIN GLARGINE SOLOSTAR 100 UNITS/ML 3 ML PEN SC ONE (14:00)
[2016-12-26] MEDS: SODIUM CHLOR 0.45% + 20MEQ KCL 1,000 ML IV SCH (14:14)
[2016-12-26] MEDS ORDERED: POTASSIUM PHOSPHATE INJ 15 MMOL in SODIUM CHLORIDE 0.9% 250ML 250 ML IV ONE (14:45)
[2016-12-26] MEDS ORDERED: ALUMINUM/MAGNESIUM/SIMETH (MAALOX MAX) 30 ML UDC PO PRN (18:00)
--- NOTE | 2016-12-26 18:11 | Hospitalist Progress Note ---
Hospitalist Progress Note Date of Service Dec 26, 2016. Subjective Pt evaluation today including: conversation w/ patient, conversation w/ family , physical exam, chart review, lab review, review of studies, review of inpatient medication list DKA has resolved. He is awake and alert, actually somewhat agitated at this time. His mother is present with him. Sore throat remained to be his main and only complaint. He told me he could not eat his evening meal due to his throat being sore. He requested some mac-&-cheese, but when kitchen did not have he was agitated and did not want any other of the soft food options. Additional Comments: A 10 system review was performed and all were negative. Positives were placed in the subjective section. Objective Vital Signs Date Time Temp Pulse Resp B/P Pulse Ox O2 Delivery O2 Flow Rate FiO2 12/26/16 16:22 36.9 86 16 110/59 97 Room Air 12/26/16 16:00 Room Air 12/26/16 14:17 90 18 97/56 97 Room Air 12/26/16 12:00 Room Air 12/26/16 12:00 36.9 102 14 107/52 98 Room Air 12/26/16 10:00 100 14 106/53 97 Room Air 12/26/16 08:00 36.8 98 16 126/78 100 Room Air 12/26/16 08:00 Room Air 12/26/16 08:00 Room Air 12/26/16 06:00 106 12 116/65 96 Room Air 12/26/16 05:00 104 13 116/66 99 Room Air 12/26/16 04:20 Room Air 12/26/16 04:00 37.2 114 14 108/53 96 Room Air 12/26/16 03:00 110 13 109/75 97 Room Air 12/26/16 02:00 111 12 122/74 99 Room Air 12/26/16 01:00 115 16 116/64 99 Room Air 12/26/16 00:00 Room Air 12/26/16 00:00 37.1 114 16 107/51 98 Room Air 12/25/16 22:00 114 13 89/47 99 Room Air 12/25/16 21:45 114 15 88/45 99 Room Air 12/25/16 21:30 102 24 97/47 93 Room Air 12/25/16 21:15 119 19 121/68 99 Room Air 12/25/16 21:00 119 14 103/59 100 Room Air 12/25/16 20:45 116 17 98/61 100 Room Air 12/25/16 20:30 111 14 111/56 99 Room Air 12/25/16 20:15 114 15 115/73 100 Room Air 12/25/16 20:00 36.6 116 15 99/61 99 Room Air 12/25/16 20:00 Room Air 12/25/16 19:45 122 18 121/73 Room Air 12/25/16 19:30 120 18 111/62 100 Room Air 12/25/16 19:15 123 16 103/60 98 Room Air 12/25/16 19:05 36.8 123 22 121/58 98 Room Air 12/25/16 19:00 122 17 127/67 100 Room Air 12/25/16 18:16 117 22 113/68 100 Room Air Physical Exam Notes: GEN: Awake, alert, and oriented x 3. Not in acute distress HEENT: Tm's intact, no inflammation, EOMI, PERRLA, MMM, posterior pharynx is somewhat erythematous and uvula appears a bit swollen, but not at all a concern for airway compromise. Neck: Soft, supple Lungs: CTA b/l, no r/r/w Heart: REG, nrl S1S2 without murmurs, rubs or gallops Abdomen: Soft, NT, ND, + BS EXT: No C/C/E NEURO: CN's II-XII grossly intact, non-focal Skin: warm, dry, no rashes PSYCH: agitated speech as he talks to his mother and staff. He is a bit more cordial with me but acts immature for age in my opinion. Laboratory Results Last 24 Hours Test 12/25/16 18:46 12/25/16 19:43 12/25/16 19:49 12/25/16 19:53 Bedside Glucose 476 mg/dl 420 mg/dl Sodium Level 141 mmol/L Potassium Level 4.0 mmol/L Chloride Level 106 mmol/L Carbon Dioxide Level 10 mmol/L Anion Gap 24.0 mmol/L Blood Urea Nitrogen 17 mg/dl Creatinine 1.10 mg/dl Est Creatinine Clear Calc Drug Dose 87.1 ml/min Estimated GFR () 107.6 Estimated GFR (Non- 92.8 BUN/Creatinine Ratio 15.1 Random Glucose 411 mg/dl Calcium Level 7.9 mg/dl Beta-Hydroxybutyric Acid 98.68 mg/dL Urine Color YELLOW Urine Appearance CLEAR Urine pH 5.0 Urine Specific [place] 1.022 Urine Protein TRACE Urine Glucose (UA) 3+ Urine Ketones 4+ Urine Occult Blood TRACE Urine Nitrite NEG Urine Bilirubin NEG Urine Urobilinogen NEG Urine Leukocyte Esterase NEG Urine WBC (Auto) 0 /hpf Urine RBC (Auto) 0-4 /hpf Urine Hyaline Casts (Auto) 0 /lpf Urine Epithelial Cells (Auto) 0-5 /lpf Urine Bacteria (Auto) NEG Test 12/25/16 20:45 12/25/16 21:35 12/25/16 22:45 12/25/16 23:05 Bedside Glucose 226 mg/dl 209 mg/dl 139 mg/dl 137 mg/dl Test 12/25/16 23:22 12/26/16 00:16 12/26/16 00:25 12/26/16 01:12 Bedside Glucose 159 mg/dl 217 mg/dl 152 mg/dl White Blood Count 29.39 K/uL Red Blood Count 4.38 M/uL Hemoglobin 13.8 g/dL Hematocrit 40.7 % Mean Corpuscular Volume 92.9 fL Mean Corpuscular Hemoglobin 31.5 pg Mean Corpuscular Hemoglobin Concent 33.9 g/dl Platelet Count 265 K/uL Mean Platelet Volume 8.4 fL Neutrophils (%) (Auto) 82.2 % Lymphocytes (%) (Auto) 9.7 % Monocytes (%) (Auto) 6.1 % Eosinophils (%) (Auto) 0.1 % Basophils (%) (Auto) 0.3 % Neutrophils # (Auto) 24.19 K/uL Lymphocytes # (Auto) 2.84 K/uL Monocytes # (Auto) 1.78 K/uL Eosinophils # (Auto) 0.03 K/uL Basophils # (Auto) 0.08 K/uL RDW Standard Deviation 43.8 fL RDW Coefficient of Variation 12.8 % Immature Granulocyte % (Auto) 1.6 % Immature Granulocyte # (Auto) 0.47 K/uL Red Blood Cell Morphology Unremarkable Sodium Level 144 mmol/L Potassium Level 4.3 mmol/L Chloride Level 108 mmol/L Carbon Dioxide Level 17 mmol/L Anion Gap 19.0 mmol/L Blood Urea Nitrogen 12 mg/dl Creatinine 1.10 mg/dl Est Creatinine Clear Calc Drug Dose 87.1 ml/min Estimated GFR () 107.6 Estimated GFR (Non- 92.8 BUN/Creatinine Ratio 10.7 Random Glucose 229 mg/dl Calcium Level 8.0 mg/dl Beta-Hydroxybutyric Acid 56.06 mg/dL Test 12/26/16 02:09 12/26/16 03:15 12/26/16 04:15 12/26/16 05:31 Bedside Glucose 129 mg/dl 156 mg/dl 156 mg/dl 150 mg/dl Test 12/26/16 06:30 12/26/16 07:15 12/26/16 07:38 12/26/16 08:40 Bedside Glucose 150 mg/dl 129 mg/dl 136 mg/dl White Blood Count 24.03 K/uL Red Blood Count 4.13 M/uL Hemoglobin 13.3 g/dL Hematocrit 39.2 % Mean Corpuscular Volume 94.9 fL Mean Corpuscular Hemoglobin 32.2 pg Mean Corpuscular Hemoglobin Concent 33.9 g/dl RDW Standard Deviation 45.2 fL RDW Coefficient of Variation 13.0 % Platelet Count 218 K/uL Mean Platelet Volume 8.3 fL Sodium Level 144 mmol/L Potassium Level 3.8 mmol/L Chloride Level 111 mmol/L Carbon Dioxide Level 20 mmol/L Anion Gap 13.0 mmol/L Blood Urea Nitrogen 9 mg/dl Creatinine 1.20 mg/dl Est Creatinine Clear Calc Drug Dose 81.9 ml/min Estimated GFR () 96.8 Estimated GFR (Non- 83.5 BUN/Creatinine Ratio 7.2 Random Glucose 146 mg/dl Calcium Level 7.9 mg/dl Phosphorus Level 2.4 mg/dl Magnesium Level 2.1 mg/dl Test 12/26/16 09:45 12/26/16 13:00 Bedside Glucose 132 mg/dl Sodium Level 141 mmol/L Potassium Level 3.8 mmol/L Chloride Level 109 mmol/L Carbon Dioxide Level 21 mmol/L Anion Gap 11.0 mmol/L Blood Urea Nitrogen 8 mg/dl Creatinine 1.10 mg/dl Est Creatinine Clear Calc Drug Dose 89.3 ml/min Estimated GFR () 107.6 Estimated GFR (Non- 92.8 BUN/Creatinine Ratio 7.6 Random Glucose 182 mg/dl Estimated Average Glucose 272 mg/dl Hemoglobin A1c 11.1 % Calcium Level 7.9 mg/dl Phosphorus Level 2.3 mg/dl Magnesium Level 2.1 mg/dl Assessment and Plan 1) DKA - resolved 2) Type I DM - management by pharmacy glycemic team. 3) Pharyngitis - suspect chemical and mechanical irritation from frequent vomiting yesterday. I will add Mylanta. 4) Gastritis prophylaxis - PPI 5) DVT prophylaxis - TEDS, SCDs, sub-q Lovenox. Transfer to the floor. Likely able to discharge tomorrow.
[2016-12-26] MEDS: ENOXAPARIN 40 MG/0.4 ML SYR SQ SCH (19:33)
[2016-12-26 21:30] LABS: BUN/CREATININE RATIO 5.4 (10-20); CALCIUM 7.7 mg/dl (8.5-10.1); CREATININE 1.1 mg/dl (0.60-1.40); MAGNESIUM 1.9 mg/dl (1.8-2.4)
[2016-12-27 00:15] VITALS: BP 116/72; PULSE 85; TEMP 36.6; O2SAT 98
[2016-12-27] MEDS: INSULIN ASPART 100 UNITS/ML 3 ML PEN SC SCH ×4 (00:18→12:12)
[2016-12-27] MEDS: SODIUM CHLOR 0.45% + 20MEQ KCL 1,000 ML IV SCH ×3 (00:40→14:35)
[2016-12-27 07:56] LABS: ALB/GLOB RATIO 0.8 (0.9-2); BUN/CREATININE RATIO 4.3 (10-20); CALCIUM 8.3 mg/dl (8.5-10.1); CREATININE 0.77 mg/dl (0.60-1.40); PHOSPHORUS 2.2 mg/dl (2.5-4.9); POTASSIUM 3.8 mmol/L (3.5-5.1)
[2016-12-27] MEDS: PANTOprazole INJ 40 MG in SYRINGE 0 ML IV SCH (08:04)
[2016-12-27 08:07] VITALS: BP 148/78; PULSE 82; TEMP 36.4; O2SAT 100
[2016-12-27 08:19] LABS: BASO % 0.7 %; BASO ABS # 0.08 K/uL (0-0.2); COMPLETE YES; EOS % 1.4 %; HEMATOCRIT 35.8 % (42-52); LYMPH % 34.7 %; LYMPH ABS # 3.84 K/uL (1.2-3.4); MEAN CELL VOLUME 92.7 fL (80-100); MEAN CORPUSCULAR HEMOGLOBIN 31.6 pg (25-34); MEAN CORPUSCULAR HGB CONC 34.1 g/dl (32-36); MEAN PLATELET VOLUME 8.3 fL (7.4-10.4); MONO % 6.4 %; NEUT % 55.8 %; PLATELET COUNT 169 K/uL (130-400); RED BLOOD COUNT 3.86 M/uL (4.7-6.1); WHITE BLOOD COUNT 11.08 K/uL (4.8-10.8)
[2016-12-27 08:53] VITALS: O2SAT 100
[2016-12-27] MEDS ORDERED: INSULIN GLARGINE SOLOSTAR 100 UNITS/ML 3 ML PEN SC SCH (09:00)
--- NOTE | 2016-12-27 09:16 | Pharmacy Progress Note ---
Glycemic Control: Progress Nt Date of Service Dec 27, 2016. Scope Glycemic Pharmacist consulted by Dr Hunter on 12/26/16 for glycemic control and to write orders per [facility] inpatient glycemic control protocol. Objective Accuchecks BSG (last 24hrs): Test 12/26/16 09:45 12/26/16 11:47 12/26/16 12:46 12/26/16 13:00 Bedside Glucose 132 mg/dl (70-99) 158 mg/dl (70-99) 166 mg/dl (70-99) Random Glucose 182 mg/dl (70-99) Test 12/26/16 13:41 12/26/16 14:44 12/26/16 16:21 12/26/16 20:23 Bedside Glucose 166 mg/dl (70-99) 154 mg/dl (70-99) 110 mg/dl (70-99) 175 mg/dl (70-99) Test 12/26/16 21:06 12/27/16 00:08 12/27/16 04:11 12/27/16 06:45 Random Glucose 189 mg/dl (70-99) 163 mg/dl (70-99) Bedside Glucose 187 mg/dl (70-99) 231 mg/dl (70-99) Test 12/27/16 07:38 Bedside Glucose 182 mg/dl (70-99) Laboratory Data (last 24hrs) Test 12/26/16 13:00 12/26/16 21:06 12/27/16 06:45 Anion Gap 11.0 mmol/L 13.0 mmol/L 13.0 mmol/L BUN/Creatinine Ratio 7.6 5.4 4.3 Blood Urea Nitrogen 8 mg/dl 6 mg/dl 3 mg/dl Creatinine 1.10 mg/dl 1.10 mg/dl 0.77 mg/dl Hemoglobin A1c 11.1 % Potassium Level 3.8 mmol/L 4.0 mmol/L 3.8 mmol/L Sodium Level 141 mmol/L 140 mmol/L 140 mmol/L White Blood Count 11.08 K/uL Red Blood Count 3.86 M/uL Hemoglobin 12.2 g/dL Hematocrit 35.8 % Mean Corpuscular Volume 92.7 fL Mean Corpuscular Hemoglobin 31.6 pg Mean Corpuscular Hemoglobin Concent 34.1 g/dl Platelet Count 169 K/uL Mean Platelet Volume 8.3 fL Neutrophils (%) (Auto) 55.8 % Lymphocytes (%) (Auto) 34.7 % Monocytes (%) (Auto) 6.4 % Eosinophils (%) (Auto) 1.4 % Basophils (%) (Auto) 0.7 % Neutrophils # (Auto) 6.18 K/uL Lymphocytes # (Auto) 3.84 K/uL Monocytes # (Auto) 0.71 K/uL Eosinophils # (Auto) 0.16 K/uL Basophils # (Auto) 0.08 K/uL HbA1c: Test 12/26/16 13:00 Hemoglobin A1c 11.1 % (4.5-5.6) H Recent Pertinent Medications Outpatient Anti-diabetic Regimen: * Humalog BID * A1c = 11.1% 12/26/16 The patient is currently receiving: * Basal insulin: Lantus 14 units x 1 yesterday at 1500 * Correctional Insulin: Novolog Correction per scale ACHS Goal Range: Low 140 mg/dL - High 180 mg/dL Correction Factor: 40 mg/dL/unit * Prandial insulin: Per carb ratio of 1 unit per 13 grams CHO consumed * 12/25-12/26: Insulin gtt * Moderate stress * Goal 140-180 mg/dL * Currently running at 1.0 units/hr (last BSG 132 mg/dL) Risk Factors for Insulin Resistance: * Infection: ? pharyngitis (rapid Group A Strep test negative) * IVF: 1/2NS + KCl 20 mEq/L @ 125 mL/hr * Diet: T1DM Assessment & Plan ASSESSMENT: * 26 yo M with type 1 diabetes admitted with DKA, A1c 11.1% * Patient likely not well controlled as outpatient. Only receives Humalog - no basal insulin. Per Dr. Hunter, patient last filled basal insulin (Lantus) in August. Unsure if patient obtains free samples? Cost may be an issue. * Patients with type 1 diabetes need basal insulin to prevent severe complications like DKA. Plan will need to be clarified prior to discharge. * Patient transitioned off of insulin drip onto basal bolus yesterday very well , just needs daily order for Lantus and slightly tighter CF and CR at this time. * ADA & AACE recommend a goal blood sugar range 140-180 mg/dl for the majority of critically ill & non-critically ill patients. However, more stringent targets may be selected in individual cases. PLAN FOR INPATIENT GLYCEMIC CONTROL: * Basal insulin with LANTUS 10 units daily, starting this morning * Correctional Insulin with NOVOLOG per scale ACHS or Q6hrs while NPO * Goal Range: Low 140 mg/dL - High 180 mg/dL * TIGHTEN: Correction Factor: 30 mg/dL/unit * TIGHTEN: Nutritional / Prandial insulin per carb ratio of 1 unit per 12 grams CHO consumed RECOMMENDATIONS FOR DISCHARGE: * Ensure patient is taking basal insulin in addition to his Humalog. Patient did meet with restaurant general manager and reported taking Levemir, which is contradictory to notes from Dr Hunter and Brenda, [facility]. * Follow up with local field marketer HEIDY * Please note that the plan above was derived based on current level of insulin resistance and hospital stress. These recommendations are appropriate for inpatient admission only. Plan of care upon discharge will need to be reassessed to avoid potential outpatient hypo/hyperglycemia. Thank you.
[2016-12-27 15:55] VITALS: BP 135/88; PULSE 85; TEMP 36.4; O2SAT 99
[2016-12-27] MEDS ORDERED: INSDGIPEN SC (16:00)
[2016-12-27] MEDS ORDERED: CEFD1CAP14 PO (16:00)
--- NOTE | 2016-12-27 16:01 | Discharge Instructions ---
Discharge Instructions Date of Service Dec 27, 2016. Admission Reason for Admission: DKA Discharge Discharge Diagnosis / Problem: DKA Discharge Goals Goal(s): Improve disease control Activity Recommendations Activity Limitations: resume your previous activity . Instructions / Follow-Up Instructions / Follow-Up PCP in 5-7 days. Current Hospital Diet Patient's current hospital diet: Diabetes Type 1 Diet Discharge Diet Recommended Diet: Diabetes Type 1 Diet Procedures Procedures Performed: None. Pending Studies Studies pending at discharge: no Laboratory Results Last 24 Hours Test 12/26/16 16:21 12/26/16 20:23 12/26/16 21:06 12/27/16 00:08 Bedside Glucose 110 mg/dl 175 mg/dl 187 mg/dl Sodium Level 140 mmol/L Potassium Level 4.0 mmol/L Chloride Level 107 mmol/L Carbon Dioxide Level 20 mmol/L Anion Gap 13.0 mmol/L Blood Urea Nitrogen 6 mg/dl Creatinine 1.10 mg/dl Est Creatinine Clear Calc Drug Dose 89.3 ml/min Estimated GFR () 107.6 Estimated GFR (Non- 92.8 BUN/Creatinine Ratio 5.4 Random Glucose 189 mg/dl Calcium Level 7.7 mg/dl Magnesium Level 1.9 mg/dl Test 12/27/16 04:11 12/27/16 06:45 12/27/16 07:38 12/27/16 11:08 Bedside Glucose 231 mg/dl 182 mg/dl 142 mg/dl White Blood Count 11.08 K/uL Red Blood Count 3.86 M/uL Hemoglobin 12.2 g/dL Hematocrit 35.8 % Mean Corpuscular Volume 92.7 fL Mean Corpuscular Hemoglobin 31.6 pg Mean Corpuscular Hemoglobin Concent 34.1 g/dl Platelet Count 169 K/uL Mean Platelet Volume 8.3 fL Neutrophils (%) (Auto) 55.8 % Lymphocytes (%) (Auto) 34.7 % Monocytes (%) (Auto) 6.4 % Eosinophils (%) (Auto) 1.4 % Basophils (%) (Auto) 0.7 % Neutrophils # (Auto) 6.18 K/uL Lymphocytes # (Auto) 3.84 K/uL Monocytes # (Auto) 0.71 K/uL Eosinophils # (Auto) 0.16 K/uL Basophils # (Auto) 0.08 K/uL RDW Standard Deviation 44.5 fL RDW Coefficient of Variation 13.1 % Immature Granulocyte % (Auto) 1.0 % Immature Granulocyte # (Auto) 0.11 K/uL Sodium Level 140 mmol/L Potassium Level 3.8 mmol/L Chloride Level 106 mmol/L Carbon Dioxide Level 21 mmol/L Anion Gap 13.0 mmol/L Blood Urea Nitrogen 3 mg/dl Creatinine 0.77 mg/dl Est Creatinine Clear Calc Drug Dose 127.6 ml/min Estimated GFR () 146.2 Estimated GFR (Non- 126.1 BUN/Creatinine Ratio 4.3 Random Glucose 163 mg/dl Calcium Level 8.3 mg/dl Phosphorus Level 2.2 mg/dl Total Bilirubin 0.5 mg/dl Aspartate Amino Transf (AST/SGOT) 140 U/L Alanine Aminotransferase (ALT/SGPT) 82 U/L Alkaline Phosphatase 72 U/L Total Protein 5.9 gm/dl Albumin 2.6 gm/dl Globulin 3.3 gm/dl Albumin/Globulin Ratio 0.8 Hemoglobin A1c Test 12/26/16 13:00 Range/Units Estimated Average Glucose 272 mg/dl Hemoglobin A1c 11.1 H 4.5-5.6 % Medical Emergencies . Who to Call and When: Medical Emergencies: If at any time you feel your situation is an emergency, please call 911 immediately. . Non-Emergent Contact Non-Emergency issues call your: Primary Care Provider . . "Provider Documentation" section prepared by Piter Omalley. VTE Core Measure Inpt VTE Proph given/why not?: Enoxaparin (Lovenox)SQ
[2016-12-27 16:03] VITALS: BP 135/88; PULSE 85; TEMP 36.4; O2SAT 99
[2016-12-27] MEDS ORDERED: CEFDINIR 125 MG/5 ML 60 ML BTL PO ONE (16:30)
--- NOTE | 2016-12-28 15:39 | Discharge Summary ---
Discharge Summary Date of Service Dec 28, 2016. Discharge Summary Admission Date: Dec 25, 2016 at 17:28 Discharge Date: Dec 27, 2016 Discharge Disposition: Home Principal Diagnosis: DKA Problems/Secondary Diagnoses: (1) Hx MRSA infection Status: Chronic 2. Pharyngitis 3. Type I DM Procedures: NONE. Consultations: Relay Shop Tester - Dr. Linette Hunter. Medication Reconciliation New Medications: Cefdinir (Omnicef) 300 Mg Cap 300 MG PO Q12H for 10 Days, #20 CAP NS Insulin Glargine (Lantus Solostar) 100 Unit/Ml Inj 10 UNIT SC DAILY for 30 Days, #1 PEN 0 Refills Continued Medications: Insulin Human Lispro (Humalog) 1 Ea Inj SQ BID SLIDING SCALE WITH CARB COUNT Discharge Exam A 10 system review was performed and all were negative. He had pain in his throat but was improving. GEN: Awake, alert, and oriented x 3. Not in acute distress HEENT: Tm's intact, no inflammation, EOMI, PERRLA, MMM, Mild erythema in the posterior pharynx. Neck: Soft, supple Lungs: CTA b/l, no r/r/w Heart: REG, nrl S1S2 without murmurs, rubs or gallops Abdomen: Soft, NT, ND, + BS EXT: No C/C/E NEURO: CN's II-XII grossly intact, non-focal Skin: warm, dry, no rashes PSYCH: pleasant, cooperative, no signs of significant anxiety or depression. Hospital Course This type I diabetic patient began having nausea, vomiting, and abdominal pain on the day of admission. He has had DKA in the past and "knew I was getting bad ". He was placed in the ICU on the insulin gtt protocol and given generous IVF. He received pain control and antiemetics. Dr. Hunter managed the patient while he was in the ICU. When the patients anion gap closed, he was transferred to the medical floor. He was complaining of a sore throat which was felt at first to be related to multiple episodes of vomiting. His rapid strep was negative. Then throat culture was found to be growing group B strep. I gave him a dose of Cefdinir and he is given a script at discharge to complete antibiotic course. We discharged him on both Lantus and novolog. He told me that he has Levemir at home. I explained, and he knew already, that the dose were equivalent so it was up to him if he wanted to use his levemir or acquire the Lantus. DVT prophylaxis - TEDS, SCDs, sub-q Lovenox. Total Time Spent: Greater than 30 minutes This includes examination of the patient, discharge planning, medication reconciliation, and communication with other providers. Discharge Instructions Please refer to the electronic Patient Visit Report (Discharge Instructions) for additional information. Follow-Up PCP in 5-7 days. Nuclear Technician - 1-2 weeks.
[2017-04-15] MEDS ORDERED: LEVO-366 PO (13:56)
== END 2016-12-27 16:30 | disposition home or self-care (01) | DRG 638 ==
LOC: ENRESERVTM → ENRESERVDT → EDBD 15:25 → C.EDB 15:26 → UNDOADMIN 17:28 → C.MSICU 17:28 → EDBEDREQSVC 12-26 17:25 → EDBEDREQ 12-26 17:25 → C.MS2W 12-26 19:03
PROVIDERS: ADMIT Hospitalist; ATTEND Hospitalist
DX: E10.10 Type 1 diabetes mellitus with ketoacidosis without coma (principal); E87.1 Hypo-osmolality and hyponatremia; J02.0 Streptococcal pharyngitis; E86.0 Dehydration; E87.6 Hypokalemia; E83.39 Other disorders of phosphorus metabolism; F17.210 Nicotine dependence, cigarettes, uncomplicated; Z86.14 Personal history of Methicillin resistant Staphylococcus aureus infection

== ENCOUNTER 2017-04-09 12:38 | Emergency (ER) | payer OTHER ==
[~2017-04-09] VITALS: Ht 182.9 cm; Wt 61.1 kg
[~2017-04-09 12:38] MED LIST changes: +INSDGIPEN SC
[2017-04-09 12:41] VITALS: TEMP 36.8
[2017-04-09] MEDS ORDERED: ONDANSETRON INJ 2 MG/ML 2 ML VIAL IV STA (13:00)
[2017-04-09] MEDS ORDERED: SODIUM CHLORIDE 0.9% 1000ML 1,000 ML IV STA (13:00)
[2017-04-09] MEDS ORDERED: KETOROLAC TROMETHAMINE 30 MG/ML VIAL IV STA (13:00)
[2017-04-09] MEDS ORDERED: METHYLPREDNISOLONE 125 MG VIAL IV STA (13:00)
[2017-04-09] MEDS ORDERED: ALBUT/IPRATROP 3MG/0.5MG NEB 3 ML VIAL INH STA (13:00)
[2017-04-09 13:39] LABS: BASO % 0.3 %; BASO ABS # 0.04 K/uL (0-0.2); COMPLETE YES; EOS % 0.5 %; HEMATOCRIT 42.3 % (42-52); IG% 0.4 %; LYMPH % 18.9 %; LYMPH ABS # 2.36 K/uL (1.2-3.4); MEAN CELL VOLUME 91.6 fL (80-100); MEAN CORPUSCULAR HEMOGLOBIN 30.7 pg (25-34); MEAN CORPUSCULAR HGB CONC 33.6 g/dl (32-36); MEAN PLATELET VOLUME 9.1 fL (7.4-10.4); MONO % 9.7 %; NEUT % 70.2 %; PLATELET COUNT 229 K/uL (130-400); RED BLOOD COUNT 4.62 M/uL (4.7-6.1); WHITE BLOOD COUNT 12.49 K/uL (4.8-10.8)
[2017-04-09 13:41] LABS: POINT OF CARE TROPONIN I < 0.030 ng/ml (0-0.045)
[2017-04-09 13:46] LABS: INR 0.9 (0.9-1.1)
[2017-04-09 13:54] LABS: CALCIUM 9.1 mg/dl (8.5-10.1)
[2017-04-09 14:02] VITALS: Ht 182.9 cm; Wt 61.1 kg
[2017-04-09 14:17] LABS: BUN/CREATININE RATIO 12.5 (10-20); CKMB/CK RATIO 0.4 (0-3.0); CREATININE 1.1 mg/dl (0.60-1.40); POTASSIUM 3.9 mmol/L (3.5-5.1)
[2017-04-09] MEDS ORDERED: DEXTROSE 50% 50 ML SYR IV STA (14:19)
[2017-04-09] MEDS ORDERED: NovoLIN-R INSULIN PER UNIT CHARGE IV STA (14:25)
[2017-04-09] MEDS ORDERED: SODIUM CHLORIDE 0.9% 1000ML 1,000 ML IV ONE (14:30)
[2017-04-09 14:32] LABS: BETA-HYDROXYBUTYRATE 31.26 mg/dL (0.2-2.81)
--- NOTE | 2017-04-09 14:35 | DIAGNOSTIC IMAGING REPORT ---
TWO VIEW CHEST CLINICAL HISTORY: Dyspnea.. FINDINGS: PA and lateral chest radiographs are compared to study dated 12/26/2016. The cardiomediastinal silhouette is unremarkable. Airspace consolidation is seen posteriorly at the lung bases on the lateral projection. This could not be further localized on the frontal view. There is no pneumothorax. The bony thorax appears intact. IMPRESSION: Airspace consolidation is seen at a posterior lung base on the lateral view. Correlate clinically for evidence of pneumonia. Radiographic follow-up to resolution is recommended. Electronically signed by: Babar Shay M.D. 04/09/2017 2:33 PM Dictated Date/Time: 04/09/2017 2:31 PM
[2017-04-09] MEDS ORDERED: LEVAQUIN 750MG / 150ML D5W IV STA (15:02)
[2017-04-09 16:57] LABS: URINE APPEARANCE CLEAR (CLEAR); URINE BILIRUBIN NEG (NEG); URINE COLOR YELLOW; URINE NITRITE NEG (NEG); URINE PH 5.5 (4.5-7.5); URINE SPECIFIC GRAVITY 1.042 (1.000-1.030); UROBILINOGEN NEG (NEG)
[2017-04-09 16:58] LABS: MANUAL MICROSCOPIC REQUIRED? NO; REVIEW REQ? NO
[2017-04-09] MEDS ORDERED: HYDR5SYP11 PO (17:05)
[2017-04-09] MEDS ORDERED: LEVO-366 PO (17:05)
[2017-04-09] MEDS ORDERED: VNTHFA/IN INH (17:05)
[2017-04-09 17:15] VITALS: BP 102/65; PULSE 78; O2SAT 95
--- NOTE | 2017-04-10 12:50 | EMERGENCY ROOM VISIT NOTE ---
ED Visit Note First contact with patient: 12:48 Chief Complaint: Chest tightness, cough and shortness of breath. History of Present Illness: Mr. Carrion is a 26-year-old white male who ambulates into the ED complaining of chest tightness, shortness of breath and cough. Historically patient denies any previous significant respiratory diseases. Patient reports approximately 2 weeks ago he developed a mild cough. Since that time his cough has been constant. His cough has been nonproductive. Then on Sunday, approximately 3 days ago, he started developing chest tightness and feeling short of breath. Since that time the symptoms have been constant but has waxed and waned in intensity based on his coughing. Currently he describes his chest discomfort as a tightness sensation around his chest. At rest he rates this discomfort 3/10 and with coughing he rates his discomfort 7/10. His pain is nonradiating. Cough and palpation increases his discomfort. Coughing decreases his discomfort. He has not taken any medications for his symptoms prior to arrival at the hospital. Associated with his symptoms he reports intermittently he has posttussive vomiting, he appears himself wheezing and feels short of breath, he has had a decreased appetite. He denies fevers, chills, sweats, skin eruptions, skin color changes, other upper respiratory tract symptoms, voice changes, difficulty speaking, palpitations, orthopnea, dependent edema, previous clots, claudication, cramping , hemoptysis, abdominal pain, back/flank pain, dependent edema. Review of Systems: As noted above in history of present illness. All body systems were reviewed and found to be negative as noted above. Past Medical History: As previously noted diabetes, diabetic ketoacidosis. Current Medications: Insulin. Allergies to Medications: Hydrocodone. Social History: Patient is currently unemployed; he feels safe in his home environment; he admits to tobacco and alcohol use. Physical Examination: Vital Signs: Date Time Temp Pulse Resp B/P (MAP) Pulse Ox O2 Delivery O2 Flow Rate FiO2 04/09/17 17:15 78 16 102/65 95 04/09/17 16:31 77 16 115/77 96 Room Air 04/09/17 15:16 86 18 96 Room Air 04/09/17 14:09 97 16 102/51 94 Room Air 04/09/17 12:41 36.8 105 18 117/77 97 Room Air GENERAL: 26-year-old female in mild to moderate distress due to pain, no acute respiratory distress, nontoxic-appearing, afebrile and hemodynamically stable. NEUROLOGICAL: Awake, alert and oriented to person, place and time. Answering questions appropriately and following commands. Normal gait. Good hand eye coordination. No focal motor sensory deficits. SKIN: Warm, dry and pink. No soft tissue eruptions or trauma noted. HEENT: Atraumatic and normocephalic. PERRLA. Sclera white and conjunctiva pink. No drainage from naris. Oral cavity moist and pink. Pharynx is nonerythematous or edematous. Speech normal. No lymphadenopathy. Trachea midline. No jugular venous distention. No carotid bruits. BACK: No tenderness over the bony spine. No CVA tenderness. THORAX: Lungs sounds are clear to auscultation and decreased in all lung hill. Equal bilaterally with symmetrical chest wall. No wheezing, rales or rhonchi. Moderate tenderness over the bilateral anterior and lateral chest redman with palpation and compression. No bony deformity, bony crepitus, swelling, erythema or subcutaneous air noted. Intermittently he has increased respiratory effort and rate after episode of coughing. HEART: Tachycardia rate and rhythm. No gallops, rubs or murmurs are appreciated. PMI is not displaced. No lifts, heaves or thrills. ABDOMEN: Flat, soft and nontender. Positive bowel sounds in all quadrants. No guarding, rigidity or organomegaly. EXTREMITIES: Moves all extremities well on command and with purpose. All distal neurovascular statuses are intact and equal bilaterally. No calf tenderness or cords. ED Course: Patient is assessed as noted above. Patient's medications were reviewed. Laboratory Testing: Test 04/09/17 13:10 04/09/17 13:22 04/09/17 15:00 04/09/17 16:20 Range/Units White Blood Count 12.49 4.8-10.8 K/uL Red Blood Count 4.62 4.7-6.1 M/uL Hemoglobin 14.2 14.0-18.0 g/dL Hematocrit 42.3 42-52 % Mean Corpuscular Volume 91.6 80-100 fL Mean Corpuscular Hemoglobin 30.7 25-34 pg Mean Corpuscular Hemoglobin Concent 33.6 32-36 g/dl Platelet Count 229 130-400 K/uL Mean Platelet Volume 9.1 7.4-10.4 fL Neutrophils (%) (Auto) 70.2 % Lymphocytes (%) (Auto) 18.9 % Monocytes (%) (Auto) 9.7 % Eosinophils (%) (Auto) 0.5 % Basophils (%) (Auto) 0.3 % Neutrophils # (Auto) 8.77 1.4-6.5 K/uL Lymphocytes # (Auto) 2.36 1.2-3.4 K/uL Monocytes # (Auto) 1.21 0.11-0.59 K/uL Eosinophils # (Auto) 0.06 0-0.5 K/uL Basophils # (Auto) 0.04 0-0.2 K/uL RDW Standard Deviation 42.3 36.4-46.3 fL RDW Coefficient of Variation 12.6 11.5-14.5 % Immature Granulocyte % (Auto) 0.4 % Immature Granulocyte # (Auto) 0.05 0.00-0.02 K/uL Prothrombin Time 10.0 9.0-12.0 SECONDS Prothromb Time International Ratio 0.9 0.9-1.1 Activated Partial Thromboplast Time 25.0 21.0-31.0 SECONDS Partial Thromboplastin Ratio 1.0 Sodium Level 131 136-145 mmol/L Potassium Level 3.9 3.5-5.1 mmol/L Chloride Level 92 98-107 mmol/L Carbon Dioxide Level 26 21-32 mmol/L Anion Gap 13.0 3-11 mmol/L Blood Urea Nitrogen 14 7-18 mg/dl Creatinine 1.10 0.60-1.40 mg/dl Est Creatinine Clear Calc Drug Dose 88.7 ml/min Estimated GFR () 107.6 Estimated GFR (Non- 92.8 BUN/Creatinine Ratio 12.5 10-20 Random Glucose 483 70-99 mg/dl Calcium Level 9.1 8.5-10.1 mg/dl Total Creatine Kinase 167 39-308 U/L Creatine Kinase MB 0.6 0.5-3.6 ng/ml Creatine Kinase MB Ratio 0.4 0-3.0 Beta-Hydroxybutyric Acid 31.26 0.2-2.81 mg/dL Bedside D-Dimer 79 0-450 ng/mlFEU Bedside Troponin I < 0.030 0-0.045 ng/ml Bedside Glucose 392 70-99 mg/dl Urine Color YELLOW Urine Appearance CLEAR CLEAR Urine pH 5.5 4.5-7.5 Urine Specific Scott 1.042 1.000-1.030 Urine Protein NEG NEG Urine Glucose (UA) 3+ NEG Urine Ketones 1+ NEG Urine Occult Blood NEG NEG Urine Nitrite NEG NEG Urine Bilirubin NEG NEG Urine Urobilinogen NEG NEG Urine Leukocyte Esterase NEG NEG Test 04/09/17 16:21 Range/Units Bedside Glucose 262 70-99 mg/dl Chest X-Ray: Was reviewed by myself and read by the radiologist showing a airspace consolidation in the lower lung behind the heart consistent with a pneumonia. Normal heart silhouette. No pneumothorax. No vascular changes. Normal bony anatomy. EKG: Was read by myself and Dr. Lima; shows normal sinus rhythm with a ventricular rate of 91 bpm. No acute ischemic changes. There does appear to have right atrial enlargement, and a left incomplete bundle branch block. Medical records were reviewed and no previous EKGs were found on file. Patient was hydrated with normal saline, he received an albuterol/Atrovent nebulizer breathing treatment, 125 mg of Solu-Medrol IV, 4 mg of Zofran IV, 30 mg of Toradol IV and 750 mg of Levaquin IV. Additionally patient received 10 units of regular insulin IV for his hyperglycemia. We did reevaluate his blood sugar multiple times prior to discharge; please note above. Patient was reassessed multiple times during his stay in the emergency department. After his breathing treatment he subjectively reported he was feeling much better and was no longer short of breath and reported his chest discomfort had decreased level of 2/10. Patient's case was reviewed with Dr. Lima; we agreed on diagnostic approach , treatment, disposition and plan. Prior to discharge patient was placed on an exercise trial of walking and pulse oximetry and had no decrease in his pulse ox with walking around the hospital unit. Patient was educated about today's findings and instructed on his treatment plan ; he verbalized understanding and agreement with this plan. Clinical Impression: Pneumonia. Hyperglycemia. Pleuritic chest pain. Decision-Making: Initially my differential diagnosis I considered acute coronary syndrome, thoracic aneurysm, pneumothorax, no new, pulmonary embolism, rib fracture/contusion and other causes. Disposition: Patient discharged home in stable condition; prior to departure he was reassessed and subjectively reported that he was pain and symptom-free. Plan: Patient was encouraged to use ibuprofen and acetaminophen as needed for pain or fevers. Patient was prescribed Levaquin 500 milligrams once a day for 7 days. Patient was prescribed Hycodan cough syrup and encouraged to use 5-10 mL every 6 hours as needed for cough; he was informed that this was a narcotic and appropriate precautions were discussed with the patient. Patient was prescribed an albuterol inhaler with spacer and he was encouraged to use 2 puffs every 6 hours for 5 days. Patient was encouraged to stop smoking. Patient was encouraged to monitor his blood sugar and adjust his insulin doses as needed. Patient is encouraged to follow-up with family physician for recheck in 24-36 hours. Patient was encouraged return the ED for worsening shortness of breath, worsening pain, uncontrolled fevers, coughing up blood, worsening blood sugars or any new/concerning symptoms.
[2017-04-15] MEDS ORDERED: LEVO-366 PO (13:56)
== END 2017-04-09 17:17 | disposition home or self-care (01) ==
LOC: EDUNIT# 12:38 → C.EDB 12:40 → C.EDC 17:17
DX: J18.9 Pneumonia, unspecified organism (principal); E11.65 Type 2 diabetes mellitus with hyperglycemia; R07.81 Pleurodynia; Z79.4 Long term (current) use of insulin; Z72.0 Tobacco use

== ENCOUNTER 2017-04-12 01:39 | Inpatient (IN) | payer OTHER ==
[~2017-04-12] VITALS: Ht 182.9 cm; Wt 60.9 kg
[2017-04-12] VITALS (8 sets, daily range): BP systolic 103–148; BP diastolic 43–85; PULSE 90–102; TEMP 36.4–36.9; O2SAT 94–100; BMI 16.9
[~2017-04-12 01:39] MED LIST changes: +HYDR5SYP11 PO; +LEVO-366 PO; +VNTHFA/IN INH
[2017-04-12] MEDS ORDERED: ONDANSETRON INJ 2 MG/ML 2 ML VIAL ONE (01:41)
[2017-04-12] MEDS ORDERED: SODIUM CHLORIDE 0.9% 1000ML 2,000 ML IV STA (02:01)
[2017-04-12 02:10] LABS: BASO % 0.5 %; BASO ABS # 0.05 K/uL (0-0.2); COMPLETE YES; EOS % 0.4 %; HEMATOCRIT 44.1 % (42-52); IG% 0.8 %; LYMPH % 20.5 %; LYMPH ABS # 2.11 K/uL (1.2-3.4); MEAN CELL VOLUME 95.2 fL (80-100); MEAN CORPUSCULAR HEMOGLOBIN 31.7 pg (25-34); MEAN CORPUSCULAR HGB CONC 33.3 g/dl (32-36); MONO % 8.3 %; NEUT % 69.5 %; PLATELET COUNT 282 K/uL (130-400); RED BLOOD COUNT 4.63 M/uL (4.7-6.1); WHITE BLOOD COUNT 10.27 K/uL (4.8-10.8)
[2017-04-12] MEDS ORDERED: PROMETHAZINE HCL INJ 12.5 MG in SODIUM CHLORIDE 0.9% 50ML 50 ML IV STA ×2 (02:11→03:09)
[2017-04-12] MEDS ORDERED: PROMETHAZINE HCL INJ 25 MG/ML 1 ML VIAL ONE (02:14)
[2017-04-12 02:19] LABS: PARTIAL THROMBOPLASTIN RATIO 0.9; PROTHROMBIN TIME (PATIENT) 10.2 SECONDS (9.0-12.0)
--- NOTE | 2017-04-12 02:25 | EMERGENCY ROOM VISIT NOTE ---
History Report prepared by Evelina: Samantha Pagan Under the Supervision of: Dr. Silva Man D.O. First contact with patient: 01:42 Chief Complaint: VOMITING Stated Complaint: VOMITING Nursing Triage Summary: Patient is a type one diabetic and states he has been vomitting for about the last hour. BSG on arrival to ER reads "high" C/O generalized pain everywhere. History of Present Illness The patient is a 26 year old male who presents to the Emergency Room with complaints of persistent hyperglycemia occurring today. He has a history of type I diabetes. The patient was evaluated in the Emergency Room 2 days ago and he was diagnosed with pneumonia. He was prescribed Levaquin and was discharged home. This morning, his blood sugar level was in the 300s. About an hour ago, he started having nausea, vomiting, and abdominal pain. He has a history of DKA and reports similar symptoms today. He denies feeling dehydrated, urinary symptoms, or any other complaints. Source of History: patient Onset: today Position: other (global) Symptom Intensity: 300s this morning Quality: other (hyperglycemia) Timing: other (persistent) Associated Symptoms: + nausea, + vomiting, + abdominal pain, No urinary symptoms Review of Systems See HPI for pertinent positives & negatives. A total of 10 systems reviewed and were otherwise negative. Past Medical & Surgical Medical Problems: (1) Abscess of right lower leg (2) Abscess, neck (3) Abscess, neck (4) Acute bronchitis (5) Cellulitis (6) Diabetes (7) DKA (diabetic ketoacidoses) (8) Heel pain (9) Hordeolum internum of left lower eyelid (10) Hx MRSA infection (11) Left otitis externa (12) Left otitis externa (13) Nasal pain Family History Patient reports no known family medical history. Social History Smoking Status: Current Every Day Smoker Alcohol Use: occasionally Marital Status: in relationship Housing Status: lives with significant other Occupation Status: employed Current/Historical Medications Scheduled Albuterol Hfa (Ventolin Hfa), 2 PUFFS INH QID Insulin Glargine (Lantus Solostar), 10 UNIT SC DAILY Insulin Human Lispro (Humalog), SQ BID Levofloxacin (Levaquin), 500 MG PO DAILY Scheduled PRN Hydrocodone W/ Homatropine (Hycodan 5/1.5MG 5 Ml), 5-10 ML PO Q6 PRN for Cough Allergies Coded Allergies: Hydrocodone (Verified Adverse Reaction, Mild, ITCHING, 04/12/17) Physical Exam Vital Signs Date Time Temp Pulse Resp B/P (MAP) Pulse Ox O2 Delivery O2 Flow Rate FiO2 04/12/17 03:38 95 24 125/71 96 Room Air 04/12/17 02:04 98 04/12/17 01:42 36.5 101 24 147/97 99 Room Air 04/12/17 01:41 105 Physical Exam HEENT: Head - normocephalic and atraumatic Pupils are equal, round, and reactive to light. Extraocular eye muscles are intact, and sclera are anicteric. Nose - moist nasal mucosa without discharge. Mouth - moist buccal mucosa. Oropharynx is nonerythematous and there is no tonsillar exudate or edema noted. Neck: Supple; no JVD, nuchal rigidity, cervical lymphadenopathy. Heart: Tachycardic rate and regular rhythm. There is a normal S1 and S2 with no murmurs, clicks, or gallops appreciated. Lungs: Clear to auscultation bilaterally with no wheezes, rales, or rhonchi. Abdomen: Soft, diffuse abdominal pain, nondistended, with good bowel sounds. There are no palpable pulsatile masses or hepatosplenomegaly. There is no guarding, rigidity, or rebound noted. Extremities: No evidence of cyanosis, clubbing, or edema. There are easily palpable peripheral pulses. Skin: Diaphoretic, warm and with good turgor and no rashes. Medical Decision & Procedures ER Provider Diagnostic Interpretation: X-ray results as stated below per interpretation by me: PORTABLE CHEST X-RAY No obvious pulmonary infiltrate, previously diagnosed infiltrate from April 09 was in the posterior lobe and may not be visualized on this film. LATERAL VIEW CHEST X-RAY The infiltrate present on April 09 has now resolved. Laboratory Results 04/12/17 01:48 Red Blood Count 4.63, Mean Corpuscular Volume 95.2, Mean Corpuscular Hemoglobin 31.7, Mean Corpuscular Hemoglobin Concent 33.3, Mean Platelet Volume 9.0, Neutrophils (%) (Auto) 69.5, Lymphocytes (%) (Auto) 20.5, Monocytes (%) (Auto) 8.3, Eosinophils (%) (Auto) 0.4, Basophils (%) (Auto) 0.5, Neutrophils # (Auto) 7.14, Lymphocytes # (Auto) 2.11, Monocytes # (Auto) 0.85, Eosinophils # (Auto) 0.04, Basophils # (Auto) 0.05 04/12/17 01:48 Test 04/12/17 01:45 04/12/17 01:48 04/12/17 02:12 04/12/17 02:22 Lipase 53 U/L (73-393) White Blood Count 10.27 K/uL (4.8-10.8) Red Blood Count 4.63 M/uL (4.7-6.1) Hemoglobin 14.7 g/dL (14.0-18.0) Hematocrit 44.1 % (42-52) Mean Corpuscular Volume 95.2 fL (80-100) Mean Corpuscular Hemoglobin 31.7 pg (25-34) Mean Corpuscular Hemoglobin Concent 33.3 g/dl (32-36) Platelet Count 282 K/uL (130-400) Mean Platelet Volume 9.0 fL (7.4-10.4) Neutrophils (%) (Auto) 69.5 % Lymphocytes (%) (Auto) 20.5 % Monocytes (%) (Auto) 8.3 % Eosinophils (%) (Auto) 0.4 % Basophils (%) (Auto) 0.5 % Neutrophils # (Auto) 7.14 K/uL (1.4-6.5) Lymphocytes # (Auto) 2.11 K/uL (1.2-3.4) Monocytes # (Auto) 0.85 K/uL (0.11-0.59) Eosinophils # (Auto) 0.04 K/uL (0-0.5) Basophils # (Auto) 0.05 K/uL (0-0.2) RDW Standard Deviation 44.8 fL (36.4-46.3) RDW Coefficient of Variation 12.9 % (11.5-14.5) Immature Granulocyte % (Auto) 0.8 % Immature Granulocyte # (Auto) 0.08 K/uL (0.00-0.02) Prothrombin Time 10.2 SECONDS (9.0-12.0) Prothromb Time International Ratio 1.0 (0.9-1.1) Activated Partial Thromboplast Time 22.6 SECONDS (21.0-31.0) Partial Thromboplastin Ratio 0.9 Anion Gap 27.0 mmol/L (3-11) Est Creatinine Clear Calc Drug Dose 78.1 ml/min Estimated GFR () 96.8 Estimated GFR (Non- 83.5 BUN/Creatinine Ratio 18.8 (10-20) Calcium Level 9.1 mg/dl (8.5-10.1) Total Bilirubin 1.0 mg/dl (0.2-1) Aspartate Amino Transf (AST/SGOT) 78 U/L (15-37) Alanine Aminotransferase (ALT/SGPT) 116 U/L (12-78) Alkaline Phosphatase 150 U/L (45-117) Total Protein 8.0 gm/dl (6.4-8.2) Albumin 4.0 gm/dl (3.4-5.0) Globulin 4.0 gm/dl (2.5-4.0) Albumin/Globulin Ratio 1.0 (0.9-2) Beta-Hydroxybutyric Acid 108.62 mg/dL (0.2-2.81) Bedside Lactic Acid Venous 1.85 mmol/L (0.90-1.70) Venous Blood pH 7.30 (7.36-7.41) Venous Blood Partial Pressure CO2 32 mmHg (38.0-50.0) Venous Blood Partial Pressure O2 34 mmHg Venous Blood HCO3 15 mmol/L Venous Blood Oxygen Saturation 64.9 % Venous Blood Base Excess -10.0 mmol/L Test 04/12/17 03:10 Urine Color YELLOW Urine Appearance CLEAR (CLEAR) Urine pH 5.0 (4.5-7.5) Urine Specific [place] 1.024 (1.000-1.030) Urine Protein NEG (NEG) Urine Glucose (UA) 3+ (NEG) Urine Ketones 4+ (NEG) Urine Occult Blood NEG (NEG) Urine Nitrite NEG (NEG) Urine Bilirubin NEG (NEG) Urine Urobilinogen NEG (NEG) Urine Leukocyte Esterase NEG (NEG) Urine WBC (Auto) 0 /hpf (0-5) Urine RBC (Auto) 0-4 /hpf (0-4) Urine Hyaline Casts (Auto) 0 /lpf (0-5) Urine Epithelial Cells (Auto) 0-5 /lpf (0-5) Urine Bacteria (Auto) NEG (NEG) Laboratory results per my review. Medications Administered Medications (Trade) Dose Ordered Sig/Zane Route Start Time Stop Time Status Last Admin Dose Admin Ondansetron HCl (Zofran Inj) 4 mg STK-MED ONCE .ROUTE 04/12/17 01:41 04/12/17 01:42 DC 04/12/17 01:41 4 MG Sodium Chloride 2,000 ml @ 999 mls/hr Q2H1M STAT IV 04/12/17 02:01 04/12/17 04:01 DC 04/12/17 02:01 999 MLS/HR Promethazine HCl 12.5 mg/Sodium Chloride 50.5 ml @ 204 mls/hr NOW STAT IV 04/12/17 02:11 04/12/17 02:25 DC 04/12/17 02:11 204 MLS/HR Promethazine HCl 12.5 mg/Sodium Chloride 50.5 ml @ 204 mls/hr NOW STAT IV 04/12/17 03:09 04/12/17 03:23 DC 04/12/17 03:09 204 MLS/HR Potassium Chloride/Sodium Chloride 1,000 ml @ 200 mls/hr Q5H STAT IV 04/12/17 04:09 04/12/17 09:08 04/12/17 04:09 200 MLS/HR Insulin Human Regular 1.5 unit/ Syringe 1.5 ml @ 1 mls/min ONE STAT IV 04/12/17 04:38 04/12/17 04:40 DC 04/12/17 05:09 1 MLS/MIN Insulin Human Regular 250 units/ Sodium Chloride 252.5 ml @ 0 mls/hr TODAY@0445 IV 04/12/17 04:45 04/12/17 11:29 04/12/17 05:00 1.5 MLS/HR Procedure Sodium Chloride 2000 ml @ 999 mls/hr IV, Promethazine HCl 12.5 mg/Sodium Chloride 50.5 ml @ 204 mls/hr IV, Potassium Chloride/Sodium Chloride 1000 ml @ 200 mls/hr IV, Insulin Human Regular 1.5 unit/Syringe 1.5 ml @ 1 mls/min IV ED Course 0142: Past medical records reviewed. The patient was evaluated in room A12B. A complete history and physical exam was performed. A septic workup was performed. The patient was vomiting on my exam. He didn't lose control of his stool while vomiting. 0201: Sodium Chloride 2000 ml @ 999 mls/hr IV 0211: Promethazine HCl 12.5 mg/Sodium Chloride 50.5 ml @ 204 mls/hr IV 0246: I reevaluated the patient. He appeared slightly lethargic after receiving IV Phenergan. 0309: Promethazine HCl 12.5 mg/Sodium Chloride 50.5 ml @ 204 mls/hr IV 0409: Potassium Chloride/Sodium Chloride 1000 ml @ 200 mls/hr IV 0438: Insulin Human Regular 1.5 unit/Syringe 1.5 ml @ 1 mls/min IV 0442: Upon reevaluation, I discussed findings and results with him. He verbalized agreement of the treatment plan. [facility] for further management and care. Medical Decision The patient presents to the Emergency Room with complaints of hyperglycemia. Differential diagnosis includes but is not limited to hyperglycemia, dehydration , DKA, sepsis. His labs showed no leucocytosis, stable H&H, lactic acid 1.85, carbon dioxide 15, sodium 133, potassium 4.3, chloride 91, BUN 23, creatinine 1.2, glucose 680. AST 78, ALT 116, BHA of 108, normal coags, venous blood gas pH of 7.3, pCO2 of 32, bicarb of 15. Urinalysis showed 4+ ketones and 3+ glucose. I attest that I have personally reviewed the patient's current medication list. Patient was found to have normal blood pressure on screening and does not require follow-up. This is a 26-year-old male patient with diabetes who presents to the emergency department with vomiting and hyperglycemia. The patient had been diagnosed with a pneumonia and is currently taking Levaquin. He noted that his blood sugars continued to rise and now he has intractable vomiting. The patient was given 2 L of IV crystalloid therapy. He was given multiple antiemetics finally the vomiting stopped. In the third liter of fluid, the patient began to receive IV potassium. The patient will be evaluated by Fausto Lopez. Consults Consulting Physician: Dr. Mir Impression Primary Impression: DKA (diabetic ketoacidoses) Critical Care I have personally spent greater than 60 minutes of critical care time in the direct management of this patient. This includes bedside care, interpretation of diagnostic studies, and testing, discussion with consultants, patient, and family members, and other required patient management activities. This 60 minutes is in excess of all separately billable procedures. Scribe Attestation The scribe's documentation has been prepared under my direction and personally reviewed by me in its entirety. I confirm that the note above accurately reflects all work, treatment, procedures, and medical decision making performed by me. Departure Information Dispostion Being Evaluated By Hospitalist Referrals Nakul Garcia M.D. (PCP) Patient Instructions [facility]
[2017-04-12 02:34] LABS: VEN BLD GAS O2 SATURATION 64.9 %; VENOUS BLOOD GAS PCO2 32 mmHg (38.0-50.0); VENOUS BLOOD GAS PO2 34 mmHg
[2017-04-12 02:36] LABS: BUN/CREATININE RATIO 18.8 (10-20); CALCIUM 9.1 mg/dl (8.5-10.1); CREATININE 1.2 mg/dl (0.60-1.40); POTASSIUM 4.3 mmol/L (3.5-5.1)
[2017-04-12 03:46] LABS: BETA-HYDROXYBUTYRATE 108.62 mg/dL (0.2-2.81)
[2017-04-12 04:09] LABS: URINE APPEARANCE CLEAR (CLEAR); URINE BILIRUBIN NEG (NEG); URINE COLOR YELLOW; URINE EPITHELIAL CELL AUTO 0-5 /lpf (0-5); URINE NITRITE NEG (NEG); URINE SPECIFIC GRAVITY 1.024 (1.000-1.030); UROBILINOGEN NEG (NEG); ZZUR CULT IF INDIC CLEAN CATCH NO
[2017-04-12] MEDS ORDERED: NSS + 20MEQ KCL 1000ML 1,000 ML IV STA (04:09)
[2017-04-12] MEDS ORDERED: MODERATE STRESS LEVEL ONE (04:15)
[2017-04-12 04:25] LABS: MANUAL MICROSCOPIC REQUIRED? NO; REVIEW REQ? NO
[2017-04-12] MEDS ORDERED: INSULIN HUMAN REGULAR IV BOLUS 1.5 UNIT in SYRINGE 0 ML IV STA (04:38)
[2017-04-12] MEDS ORDERED: INSULIN IV INFUSION PROTOCOL STA (04:42)
[2017-04-12] MEDS ORDERED: ACETAMINOPHEN 325 MG TAB PO PRN (04:45)
[2017-04-12] MEDS ORDERED: DEXTROSE 50% 50 ML SYR IV PRN (04:45)
[2017-04-12] MEDS ORDERED: POLYETHYLENE (MIRALAX) 17 GM PACK PO PRN (04:45)
[2017-04-12] MEDS ORDERED: ALBUTEROL 0.083% NEBU SOLN 3 ML VIAL INH PRN (04:45)
[2017-04-12] MEDS ORDERED: GLUCOSE 10 TABS/TUBE PO PRN (04:45)
[2017-04-12] MEDS ORDERED: GLUCOSE 40% GEL 15 GM TUBE PO PRN (04:45)
[2017-04-12] MEDS ORDERED: ALUMINUM/MAGNESIUM/SIMETH (MAALOX MAX) 30 ML UDC PO PRN (04:45)
[2017-04-12] MEDS ORDERED: ZOLPIDEM TARTRATE 5 MG TAB PO PRN (04:45)
[2017-04-12] MEDS ORDERED: MAGNESIUM HYDROXIDE SUSP 30 ML UDC PO PRN (04:45)
[2017-04-12] MEDS ORDERED: DC ALL PREVIOUSLY ORDERED DIABETES MEDS ONE (04:45)
[2017-04-12] MEDS ORDERED: DKA GOAL RANGE 150-250 mg/dl 1 EA ONE (04:45)
[2017-04-12] MEDS ORDERED: GLUCAGON FOR INJ 1 MG VIAL SQ PRN (04:45)
[2017-04-12] MEDS: INSULIN REGULAR 250 UNITS in SODIUM CHLORIDE 0.9% 250ML 250 ML IV SCH ×4 (05:00→11:28)
--- NOTE | 2017-04-12 05:37 | History and Physical ---
History & Physical Date & Time of Service: Apr 12, 2017 at 05:17 Chief Complaint: Vomiting Primary Care Physician: Nakul Garcia M.D. History of Present Illness Source: patient 26 y/o M Hx DM 1 since age 4. The pt was in the ER 2 days prior due to a cough and SOB and diagnosed with PNM. He was prescribed Levaquin and Albuterol. He developed nausea, vomiting, profuse diarrhea and abdominal pain one day ago. Initial labs on return to the ER are consistent with mild DKA. He denies a fever, SOB or CP. He has been incontinent of stool in the ER. Past Medical/Surgical History Medical Problems: (1) Abscess of right lower leg Status: Resolved (2) Abscess, neck Status: Resolved (3) Abscess, neck Status: Resolved (4) Acute bronchitis Status: Resolved (5) Cellulitis Status: Resolved (6) Diabetes Status: Chronic (7) DKA (diabetic ketoacidoses) Status: Resolved (8) Heel pain Status: Resolved (9) Hordeolum internum of left lower eyelid Status: Resolved (10) Hx MRSA infection Status: Chronic (11) Left otitis externa Status: Resolved (12) Left otitis externa Status: Resolved (13) Nasal pain Status: Resolved Family History Patient reports no known family medical history. 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 Smoking Status: Current Every Day Smoker Marital Status: in relationship Occupational Status: employed Allergies Coded Allergies: Hydrocodone (Verified Adverse Reaction, Mild, ITCHING, 04/12/17) Home Medications Scheduled Albuterol Hfa (Ventolin Hfa), 2 PUFFS INH QID Insulin Glargine (Lantus Solostar), 10 UNIT SC DAILY Insulin Human Lispro (Humalog), SQ BID Levofloxacin (Levaquin), 500 MG PO DAILY Scheduled PRN Hydrocodone W/ Homatropine (Hycodan 5/1.5MG 5 Ml), 5-10 ML PO Q6 PRN for Cough Review of Systems Constitutional: No fever, No chills, No sweats Eyes: No worsening of vision ENT: No hearing loss, No nasal symptoms Respiratory: No cough, No sputum, No wheezing Cardiovascular: No chest pain, No orthopnea, No PND Abdomen: + pain, + nausea, + vomiting, + diarrhea Musculoskeletal: No joint pain, No muscle pain Genitourinary - Male: No hematuria, No dysuria, No urinary frequency, No urinary urgency Neurologic: No memory loss, No paralysis, No weakness Psychiatric: No depression symptoms Endocrine: No fatigue Hematologic / Lymphatic: No abnormal bleeding/bruising Integumentary: No rash Allergic / Immunologic: No environmental allergies Physical Exam Vital Signs Date Time Temp Pulse Resp B/P (MAP) Pulse Ox O2 Delivery O2 Flow Rate FiO2 04/12/17 03:38 95 24 125/71 96 Room Air 04/12/17 02:04 98 04/12/17 01:42 36.5 101 24 147/97 99 Room Air 04/12/17 01:41 105 General Appearance: + pertinent finding (Thin young male appears moderately distressed due to nausea and abdominal discomfort) Head: normocephalic, atraumatic Eyes: normal inspection ENT: normal ENT inspection Neck: supple, no JVD Respiratory/Chest: chest non-tender, lungs clear, normal breath sounds, no respiratory distress, no accessory muscle use Cardiovascular: regular rate, rhythm, no edema, no gallop, no JVD, no murmur, normal peripheral pulses Abdomen/GI: + tenderness, + guarding Back: normal inspection, no CVA tenderness, no muscle spasm, normal range of motion Extremities/Musculoskelatal: normal inspection, normal range of motion Neurologic/Psych: train director II-XII nml as tested, no motor/sensory deficits, alert, oriented x 3 Skin: normal color, warm/dry, no rash Diagnostics Laboratory Results Results Past 24 Hours Test 04/12/17 01:45 04/12/17 01:48 04/12/17 02:12 04/12/17 02:22 Range/Units Lipase 53 73-393 U/L White Blood Count 10.27 4.8-10.8 K/uL Red Blood Count 4.63 4.7-6.1 M/uL Hemoglobin 14.7 14.0-18.0 g/dL Hematocrit 44.1 42-52 % Mean Corpuscular Volume 95.2 80-100 fL Mean Corpuscular Hemoglobin 31.7 25-34 pg Mean Corpuscular Hemoglobin Concent 33.3 32-36 g/dl Platelet Count 282 130-400 K/uL Mean Platelet Volume 9.0 7.4-10.4 fL Neutrophils (%) (Auto) 69.5 % Lymphocytes (%) (Auto) 20.5 % Monocytes (%) (Auto) 8.3 % Eosinophils (%) (Auto) 0.4 % Basophils (%) (Auto) 0.5 % Neutrophils # (Auto) 7.14 1.4-6.5 K/uL Lymphocytes # (Auto) 2.11 1.2-3.4 K/uL Monocytes # (Auto) 0.85 0.11-0.59 K/uL Eosinophils # (Auto) 0.04 0-0.5 K/uL Basophils # (Auto) 0.05 0-0.2 K/uL RDW Standard Deviation 44.8 36.4-46.3 fL RDW Coefficient of Variation 12.9 11.5-14.5 % Immature Granulocyte % (Auto) 0.8 % Immature Granulocyte # (Auto) 0.08 0.00-0.02 K/uL Prothrombin Time 10.2 9.0-12.0 SECONDS Prothromb Time International Ratio 1.0 0.9-1.1 Activated Partial Thromboplast Time 22.6 21.0-31.0 SECONDS Partial Thromboplastin Ratio 0.9 Sodium Level 133 136-145 mmol/L Potassium Level 4.3 3.5-5.1 mmol/L Chloride Level 91 98-107 mmol/L Carbon Dioxide Level 15 21-32 mmol/L Anion Gap 27.0 3-11 mmol/L Blood Urea Nitrogen 23 7-18 mg/dl Creatinine 1.20 0.60-1.40 mg/dl Est Creatinine Clear Calc Drug Dose 78.1 ml/min Estimated GFR () 96.8 Estimated GFR (Non- 83.5 BUN/Creatinine Ratio 18.8 10-20 Random Glucose 680 70-99 mg/dl Calcium Level 9.1 8.5-10.1 mg/dl Total Bilirubin 1.0 0.2-1 mg/dl Aspartate Amino Transf (AST/SGOT) 78 15-37 U/L Alanine Aminotransferase (ALT/SGPT) 116 12-78 U/L Alkaline Phosphatase 150 45-117 U/L Total Protein 8.0 6.4-8.2 gm/dl Albumin 4.0 3.4-5.0 gm/dl Globulin 4.0 2.5-4.0 gm/dl Albumin/Globulin Ratio 1.0 0.9-2 Beta-Hydroxybutyric Acid 108.62 0.2-2.81 mg/dL Bedside Lactic Acid Venous 1.85 0.90-1.70 mmol/L Venous Blood pH 7.30 7.36-7.41 Venous Blood Partial Pressure CO2 32 38.0-50.0 mmHg Venous Blood Partial Pressure O2 34 mmHg Venous Blood HCO3 15 mmol/L Venous Blood Oxygen Saturation 64.9 % Venous Blood Base Excess -10.0 mmol/L Test 04/12/17 03:10 04/12/17 04:58 Range/Units Urine Color YELLOW Urine Appearance CLEAR CLEAR Urine pH 5.0 4.5-7.5 Urine Specific [place] 1.024 1.000-1.030 Urine Protein NEG NEG Urine Glucose (UA) 3+ NEG Urine Ketones 4+ NEG Urine Occult Blood NEG NEG Urine Nitrite NEG NEG Urine Bilirubin NEG NEG Urine Urobilinogen NEG NEG Urine Leukocyte Esterase NEG NEG Urine WBC (Auto) 0 0-5 /hpf Urine RBC (Auto) 0-4 0-4 /hpf Urine Hyaline Casts (Auto) 0 0-5 /lpf Urine Epithelial Cells (Auto) 0-5 0-5 /lpf Urine Bacteria (Auto) NEG NEG Bedside Glucose 504 70-99 mg/dl Microbiology Results 04/12/17 Blood Culture, Received Pending 04/12/17 Blood Culture, Received Pending Diagnostic Radiology Suspected basilar infiltrates on CXR 04/09 Impression Assessment and Plan 26 y/o M Hx DM 1 since age 4. The pt was in the ER 2 days prior due to a cough and SOB and diagnosed with PNM. He was prescribed Levaquin and Albuterol. He developed nausea, vomiting, profuse diarrhea and abdominal pain one day ago. Initial labs on return to the ER are consistent with mild DKA. He denies a fever, SOB or CP. He has been incontinent of stool in the ER. 1) DKA - Pt is admitted with a DKA protocol - Insulin GTT, IVF and electrolyte monitoring 2) Abdominal pain with vomiting and profuse diarrhea. Will order an abdominal CT as he is guarding and pain is apparently severe. Test stool for C diff. 3) Recent diagnosis of PNM - Cont Levaquin - Albuterol as needed. 4) Smoking cessation Full code - Lovenox prophylaxis Total time for this admit including review of labs, meds, imaging - discussion with pt and ER attending - 38 min VTE Prophylaxis VTE Risk Assessment Done? Y/N: Yes Risk Level: Low
[2017-04-12] MEDS ORDERED: PENDING D5NS+20mEq KCL IVF SCH (07:15)
--- NOTE | 2017-04-12 07:16 | DIAGNOSTIC IMAGING REPORT ---
CHEST 2 VIEWS ROUTINE CLINICAL HISTORY: DKA, VOMITING pain COMPARISON STUDY: No previous studies for comparison. FINDINGS: The bones soft tissues and hemidiaphragms are normal. The cardiomediastinal silhouette is normal. The lungs are clear. The pulmonary vasculature is normal. IMPRESSION: Negative chest. Electronically signed by: Thiago Amaral M.D. 04/12/2017 7:15 AM Dictated Date/Time: 04/12/2017 7:14 AM
--- NOTE | 2017-04-12 07:33 | DIAGNOSTIC IMAGING REPORT ---
ABDOMEN AND PELVIS CT WITHOUT CONTRAST CT DOSE: 296.20 mGy.cm HISTORY: severe abdominal pain - vomiting, diarrhea TECHNIQUE: Multiaxial CT images of the abdomen and pelvis were performed without contrast. COMPARISON STUDY: None. FINDINGS: Patchy groundglass densities within the right lower lobe. No pneumoperitoneum. No pneumatosis. The unenhanced liver, gallbladder, spleen, adrenal glands, and pancreas are unremarkable. Mild fullness within the bilateral renal collecting systems is likely due to the distended bladder. Mild nonspecific perinephric fat stranding. No retroperitoneal lymphadenopathy. No dilated loops of bowel to suggest an obstruction. Diffuse mild mesenteric edema. Normal appendix. The bladder is distended. Suboptimal evaluation for bowel pathology due to the lack images and oral contrast. Mild thickening of the colonic wall may be due to underdistention. There is also mild nonspecific perinephric fat stranding. There may be mild thickening of the distal esophagus. IMPRESSION: 1. Suboptimal evaluation for bowel pathology due to the lack of intravenous and oral contrast. 2. Mild diffuse fat stranding/edema seen throughout the mesentery surrounding the decompressed small bowel loops. There is also mild diffuse pericolonic fat stranding. These findings are nonspecific but could be seen in the setting of an enteritis and possibly a mild colitis. There is also suggestion of mild thickening of the colon which could be due to underdistention. 3. Groundglass opacities within the right lower lobe. This likely represents a pneumonia. 4. There may be mild distal esophageal wall thickening. 5. Distended bladder. 6. Mild nonspecific perinephric fat stranding. 7. Normal appendix. Electronically signed by: Aniket Elena M.D. 04/12/2017 7:31 AM Dictated Date/Time: 04/12/2017 7:19 AM
[2017-04-12] MEDS: NSS + 20MEQ KCL 1000ML 1,000 ML IV SCH ×2 (07:36→11:03)
[2017-04-12] MEDS: INSULIN ASPART 100 UNITS/ML 3 ML PEN SC SCH ×5 (08:00→23:57)
[2017-04-12] MEDS: LEVOFLOXACIN / D5W 750 MG in PREMIXED IN D5W 150 ML IV SCH (08:09)
[2017-04-12 09:00] LABS: BUN/CREATININE RATIO 12.1 (10-20); CREATININE 1.3 mg/dl (0.60-1.40); MAGNESIUM 2.4 mg/dl (1.8-2.4); PHOSPHORUS 2.6 mg/dl (2.5-4.9); POTASSIUM 4.3 mmol/L (3.5-5.1)
[2017-04-12] MEDS: ENOXAPARIN 40 MG/0.4 ML SYR SC SCH ×2 (09:00→09:21)
[2017-04-12 09:08] LABS: CALCIUM 8.5 mg/dl (8.5-10.1)
[2017-04-12] MEDS: ONDANSETRON INJ 2 MG/ML 2 ML VIAL IV PRN ×2 (09:19→14:58)
[2017-04-12 09:40] LABS: BETA-HYDROXYBUTYRATE 65.77 mg/dL (0.2-2.81)
[2017-04-12] MEDS ORDERED: D5NSS + 20MEQ KCL 1,000 ML IV SCH ×2 (10:00→14:00)
[2017-04-12] MEDS ORDERED: NURSING VERBAL MED ORDER ONE ×2 (10:30→13:45)
[2017-04-12 10:46] LABS: BENZODIAZEPINE, URINE NEG (NEG); COCAINE,URINE NEG (NEG); PHENCYCLIDINE, URINE NEG (NEG)
[2017-04-12] MEDS: MoRPHine SULFATE 2 MG/ML CARP IV PRN ×2 (11:04→19:54)
[2017-04-12] MEDS: PROMETHAZINE HCL INJ 12.5 MG in SODIUM CHLORIDE 0.9% 50ML 50 ML IV PRN ×2 (11:05→19:54)
--- NOTE | 2017-04-12 11:16 | Progress Note ---
Progress Note Date of Service Apr 12, 2017. Progress Note Pt admitted after midnight. Seen and examined after getting notification from RN about profuse vomiting, diarrhea on floor and pt purposefully lying on bathroom floor. Pt states N/V/D started last night. Pt was apprently dropped off by friends in the parking lot. He denies drug abuse or EtOH use. he is having 8/10 lower abd pain constant. He reports when he is in DKA he usually gets like this with the N /V/D. UDS positive for opiates and marijuana however he did fill a Rx for Hycodan cough syrup on 04/09 from the ER for cough and chest tightness/PNA. Pt reports 15 lb weight loss recently but can't quantify time period. He is restless, rolling on bed, no eye contact, actively vomiting. He is making a lot of urine and no retention. Appears cachectic, multiple tattoos, disheveled, hands with dirt on palms and under fingernails RRR no mgr CTAB no wcr Abd +BS, soft, ND, mild TTP suprapubic region without guarding or rebound. and immediately after exam states he urgently has to go to the bathroom. Ext no edema Skin no obvious wounds or rash Pt with limited cooperation for exam Psych, flattened affect, agitated, +psychomotor agitation 26 yo male with DMI and DKA, intractable N/V/D. Recent PNA on CXR. DKA-continue insulin gtt, IVFs with KCl, labs q4 until gap closes than transition to Levemir -check A1C, previously 11.1% in 12/2016 Abd pain/Intractable N/V/D--> gastroenteritis vs opioid withdrawal suspected vs secondary to dehydration/DKA. Hycodan recently prescribed but could be using illicit opioids as well. CT abd/pel only with enteritis. Also with marijuana on UDS -morphine prn -IVFs -antiemetics -f/u confirmatory UDS for which specific opioids Proph-heparin Dispo-CM for any needs on discharge
[2017-04-12] MEDS: PANTOprazole INJ 40 MG in SYRINGE 0 ML IV SCH (11:29)
[2017-04-12 13:16] LABS: BUN/CREATININE RATIO 10.5 (10-20); CALCIUM 8.5 mg/dl (8.5-10.1); CREATININE 1.1 mg/dl (0.60-1.40); MAGNESIUM 2.5 mg/dl (1.8-2.4); POTASSIUM 4.3 mmol/L (3.5-5.1)
[2017-04-12 13:17] LABS: PHOSPHORUS 2.6 mg/dl (2.5-4.9)
[2017-04-12 17:14] LABS: BUN/CREATININE RATIO 7.6 (10-20); CALCIUM 8.8 mg/dl (8.5-10.1); CREATININE 1.2 mg/dl (0.60-1.40); MAGNESIUM 2.5 mg/dl (1.8-2.4); PHOSPHORUS 2.6 mg/dl (2.5-4.9); POTASSIUM 4.2 mmol/L (3.5-5.1)
[2017-04-12] MEDS ORDERED: INSULIN GLARGINE SOLOSTAR 100 UNITS/ML 3 ML PEN SC SCH (18:30)
[2017-04-12] MEDS: SODIUM CHLOR 0.45% + 20MEQ KCL 1,000 ML IV SCH (19:43)
[2017-04-13] VITALS (8 sets, daily range): BP systolic 106–136; BP diastolic 66–86; PULSE 79–91; TEMP 36.4–37; O2SAT 94–99; Ht 182.9 cm; Wt 60.9 kg
[2017-04-13] MEDS: SODIUM CHLOR 0.45% + 20MEQ KCL 1,000 ML IV SCH ×4 (02:40→20:53)
[2017-04-13] MEDS: PROMETHAZINE HCL INJ 12.5 MG in SODIUM CHLORIDE 0.9% 50ML 50 ML IV PRN ×2 (03:56→12:25)
[2017-04-13] MEDS: MoRPHine SULFATE 2 MG/ML CARP IV PRN ×5 (03:56→20:52)
[2017-04-13] MEDS: INSULIN ASPART 100 UNITS/ML 3 ML PEN SC SCH ×5 (04:18→20:53)
[2017-04-13 04:31] LABS: BASO % 0.2 %; BASO ABS # 0.02 K/uL (0-0.2); COMPLETE YES; HEMATOCRIT 39.3 % (42-52); IG% 0.7 %; LYMPH % 15.6 %; MEAN CORPUSCULAR HEMOGLOBIN 31.1 pg (25-34); MEAN CORPUSCULAR HGB CONC 33.1 g/dl (32-36); MEAN PLATELET VOLUME 8.5 fL (7.4-10.4); MONO % 11.4 %; NEUT % 72.1 %; PLATELET COUNT 223 K/uL (130-400); RED BLOOD COUNT 4.18 M/uL (4.7-6.1); WHITE BLOOD COUNT 10.92 K/uL (4.8-10.8)
[2017-04-13 05:37] LABS: BUN/CREATININE RATIO 8.4 (10-20); CALCIUM 8.8 mg/dl (8.5-10.1); MAGNESIUM 2.3 mg/dl (1.8-2.4); PHOSPHORUS 2.5 mg/dl (2.5-4.9); POTASSIUM 4.1 mmol/L (3.5-5.1)
--- NOTE | 2017-04-13 05:50 | Progress Note ---
Progress Note Date of Service Apr 13, 2017. Progress Note Following BSGs overnight with q2h checks, noted upward trend. Review of AM labs; anion gap remains closed; as such insulin infusion/dextrose infusion does not need to be re-started at this time Requested nurse to give SSI coverage for BSG check this morning of 260, recheck at 7am. Discussed case with pharmacy. Patient got 10 units Lantus yesterday but likely could tolerate increased basal coverage. I have ordered an additional 10 units Lantus coverage this morning; and day team can re-evaluate evening Lantus dosing based on daytime response. I will sign this out to the day team.
[2017-04-13 05:54] LABS: BETA-HYDROXYBUTYRATE 36.54 mg/dL (0.2-2.81)
[2017-04-13] MEDS ORDERED: INSULIN GLARGINE SOLOSTAR 100 UNITS/ML 3 ML PEN SC ONE ×2 (09:00→12:30)
[2017-04-13] MEDS: ENOXAPARIN 40 MG/0.4 ML SYR SC SCH (09:00)
[2017-04-13] MEDS: LEVOFLOXACIN / D5W 750 MG in PREMIXED IN D5W 150 ML IV SCH (09:04)
[2017-04-13] MEDS: ONDANSETRON INJ 2 MG/ML 2 ML VIAL IV PRN ×3 (10:10→20:51)
[2017-04-13] MEDS ORDERED: INSULIN ASPART 100 UNITS/ML 3 ML PEN SC ONE (11:00)
[2017-04-13] MEDS ORDERED: NURSING VERBAL MED ORDER ONE (11:00)
[2017-04-13 11:53] LABS: BUN/CREATININE RATIO 7.6 (10-20); CALCIUM 8.7 mg/dl (8.5-10.1); CREATININE 1.1 mg/dl (0.60-1.40); POTASSIUM 3.8 mmol/L (3.5-5.1)
[2017-04-13 11:58] LABS: PHOSPHORUS 1.9 mg/dl (2.5-4.9)
[2017-04-13] MEDS ORDERED: POTASSIUM PHOS 3 MMOL/1 ML INFUSION IV STA (12:07)
--- NOTE | 2017-04-13 12:20 | Hospitalist Progress Note ---
Hospitalist Progress Note Date of Service Apr 13, 2017. Subjective Pt evaluation today including: conversation w/ patient Feeling a little better than yesterday but still nauseated and dry heaving. No more diarrhea, abd pain is improved from yesterday. He states he always gets this sick when he has DKA Constitutional: No fever Respiratory: No cough Cardiovascular: No chest pain Abdomen: + pain, + nausea, + vomiting, No diarrhea All Other Systems: Reviewed and Negative Objective Vital Signs Date Time Temp Pulse Resp B/P (MAP) Pulse Ox O2 Delivery O2 Flow Rate FiO2 04/13/17 10:50 36.7 79 20 119/77 (91) 99 Room Air 04/13/17 08:00 Room Air 04/13/17 07:20 36.4 91 20 106/66 (79) 96 Room Air 04/13/17 04:01 36.5 87 18 131/81 (98) 99 Room Air 04/13/17 04:00 94 Room Air 04/12/17 23:59 94 Room Air 04/12/17 23:44 36.4 102 22 148/85 (106) 99 Room Air 04/12/17 20:00 94 Room Air 04/12/17 19:35 36.8 94 18 139/78 (98) 94 Room Air 04/12/17 16:09 Room Air 04/12/17 15:50 36.8 99 18 120/76 (91) 97 Room Air 04/12/17 12:49 Room Air Physical Exam General Appearance: no apparent distress, + thin Eyes: normal inspection, sclerae normal ENT: hearing grossly normal Neck: trachea midline Respiratory/Chest: lungs clear, normal breath sounds, no respiratory distress, no accessory muscle use Cardiovascular: regular rate, rhythm, no edema, no gallop, no murmur Abdomen: normal bowel sounds, non tender, soft, no organomegaly Extremities: normal range of motion, non-tender, normal inspection, no pedal edema, no calf tenderness Neurologic/Psychiatric: alert, + depressed affect Skin: normal color, warm/dry, no rash Laboratory Results Last 24 Hours Test 04/12/17 12:33 04/12/17 13:04 04/12/17 14:56 04/12/17 16:45 Venous Blood pH 7.34 7.38 Sodium Level 145 mmol/L 145 mmol/L Potassium Level 4.3 mmol/L 4.2 mmol/L Chloride Level 108 mmol/L 109 mmol/L Carbon Dioxide Level 22 mmol/L 26 mmol/L Anion Gap 15.0 mmol/L 10.0 mmol/L Blood Urea Nitrogen 12 mg/dl 9 mg/dl Creatinine 1.10 mg/dl 1.20 mg/dl Est Creatinine Clear Calc Drug Dose 81.9 ml/min 75.1 ml/min Estimated GFR () 107.6 96.8 Estimated GFR (Non- 92.8 83.5 BUN/Creatinine Ratio 10.5 7.6 Random Glucose 250 mg/dl 266 mg/dl Calcium Level 8.5 mg/dl 8.8 mg/dl Phosphorus Level 2.6 mg/dl 2.6 mg/dl Magnesium Level 2.5 mg/dl 2.5 mg/dl Bedside Glucose 183 mg/dl 198 mg/dl Test 04/12/17 17:00 04/12/17 21:13 04/12/17 23:53 04/13/17 01:56 Bedside Glucose 227 mg/dl 251 mg/dl 166 mg/dl 276 mg/dl Test 04/13/17 04:04 04/13/17 04:25 04/13/17 05:02 04/13/17 05:48 Bedside Glucose 300 mg/dl 260 mg/dl 189 mg/dl White Blood Count 10.92 K/uL Red Blood Count 4.18 M/uL Hemoglobin 13.0 g/dL Hematocrit 39.3 % Mean Corpuscular Volume 94.0 fL Mean Corpuscular Hemoglobin 31.1 pg Mean Corpuscular Hemoglobin Concent 33.1 g/dl Platelet Count 223 K/uL Mean Platelet Volume 8.5 fL Neutrophils (%) (Auto) 72.1 % Lymphocytes (%) (Auto) 15.6 % Monocytes (%) (Auto) 11.4 % Eosinophils (%) (Auto) 0.0 % Basophils (%) (Auto) 0.2 % Neutrophils # (Auto) 7.87 K/uL Lymphocytes # (Auto) 1.70 K/uL Monocytes # (Auto) 1.25 K/uL Eosinophils # (Auto) 0.00 K/uL Basophils # (Auto) 0.02 K/uL RDW Standard Deviation 44.8 fL RDW Coefficient of Variation 13.1 % Immature Granulocyte % (Auto) 0.7 % Immature Granulocyte # (Auto) 0.08 K/uL Sodium Level 145 mmol/L Potassium Level 4.1 mmol/L Chloride Level 110 mmol/L Carbon Dioxide Level 25 mmol/L Anion Gap 10.0 mmol/L Blood Urea Nitrogen 8 mg/dl Creatinine 1.00 mg/dl Est Creatinine Clear Calc Drug Dose 90.1 ml/min Estimated GFR () 120.7 Estimated GFR (Non- 104.1 BUN/Creatinine Ratio 8.4 Random Glucose 358 mg/dl Calcium Level 8.8 mg/dl Phosphorus Level 2.5 mg/dl Magnesium Level 2.3 mg/dl Beta-Hydroxybutyric Acid 36.54 mg/dL Test 04/13/17 06:55 04/13/17 08:14 04/13/17 10:19 04/13/17 11:28 Bedside Glucose 133 mg/dl 201 mg/dl 308 mg/dl Venous Blood pH 7.40 Sodium Level 143 mmol/L Potassium Level 3.8 mmol/L Chloride Level 108 mmol/L Carbon Dioxide Level 23 mmol/L Anion Gap 12.0 mmol/L Blood Urea Nitrogen 8 mg/dl Creatinine 1.10 mg/dl Est Creatinine Clear Calc Drug Dose 84.4 ml/min Estimated GFR () 107.6 Estimated GFR (Non- 92.8 BUN/Creatinine Ratio 7.6 Random Glucose 292 mg/dl Calcium Level 8.7 mg/dl Phosphorus Level 1.9 mg/dl Total Bilirubin 0.6 mg/dl Direct Bilirubin 0.1 mg/dl Aspartate Amino Transf (AST/SGOT) 37 U/L Alanine Aminotransferase (ALT/SGPT) 70 U/L Alkaline Phosphatase 108 U/L Total Protein 6.6 gm/dl Albumin 2.8 gm/dl Assessment and Plan 26 yo male with DMI and DKA, intractable N/V/D. Recent PNA on CXR. DKA-stopped insulin gtt after gap closed, started on Lantus, continue IVFs with KCl, continues with some hyperglycemia but gap 12 on most recent labs, pH VBG 7.4 -check A1C, previously 11.1% in 12/2016 -increase Lantus to 10 units bid from home dose 10 daily -SSI, continue q2h glucose checks -CDE consult appreciated Abd pain/Intractable N/V/D--> seems to be his pattern historically secondary to dehydration/DKA. Positive UDS for opiates but Hycodan recently prescribed but could be using illicit opioids as well. CT abd/pel only with enteritis. Also with marijuana on UDS. Abd pain improved, diarrhea resolved, continues with nausea and dry heaving -morphine prn abd pain -IVFs and increase to 200 mls/hr -antiemetics -f/u confirmatory UDS for which specific opioids Proph-heparin Dispo-CM for any needs on discharge
[2017-04-13] MEDS: PANTOprazole INJ 40 MG in SYRINGE 0 ML IV SCH (12:26)
[2017-04-13] MEDS ORDERED: POTASSIUM PHOSPHATE INJ 15 MMOL in SODIUM CHLORIDE 0.9% 250ML 250 ML IV SCH (12:30)
[2017-04-13 13:06] LABS: ESTIMATED AVERAGE GLUCOSE 272 mg/dl; HA1C FLAG Normal (Normal)
--- NOTE | 2017-04-13 13:46 | DIAGNOSTIC IMAGING REPORT ---
[facility] CLINICAL HISTORY: Nausea and vomiting COMPARISON STUDY: No previous studies for comparison. FINDINGS: There is no pathologic bowel dilatation. There is a relative possibility of upper abdominal bowel gas. There is no conventional radiographic evidence of organomegaly. There is a mild spinal curvature convex to the right IMPRESSION: No evidence of pathologic bowel dilatation Electronically signed by: Will Neri M.D. 04/13/2017 1:45 PM Dictated Date/Time: 04/13/2017 1:44 PM
[2017-04-13] MEDS: INSULIN GLARGINE SOLOSTAR 100 UNITS/ML 3 ML PEN SC SCH (20:57)
[2017-04-14] VITALS (9 sets, daily range): BP systolic 127–150; BP diastolic 74–92; PULSE 75–79; TEMP 36.7–37.2; O2SAT 97–99
[2017-04-14] MEDS: SODIUM CHLOR 0.45% + 20MEQ KCL 1,000 ML IV SCH ×5 (00:25→20:54)
[2017-04-14] MEDS: PROMETHAZINE HCL INJ 12.5 MG in SODIUM CHLORIDE 0.9% 50ML 50 ML IV PRN ×3 (01:02→14:24)
[2017-04-14] MEDS: ONDANSETRON INJ 2 MG/ML 2 ML VIAL IV PRN ×3 (05:14→20:10)
[2017-04-14 05:21] LABS: BASO % 0.2 %; BASO ABS # 0.02 K/uL (0-0.2); COMPLETE YES; EOS % 0.1 %; HEMATOCRIT 43.2 % (42-52); IG% 0.7 %; LYMPH % 23.7 %; LYMPH ABS # 2.51 K/uL (1.2-3.4); MEAN CELL VOLUME 93.3 fL (80-100); MEAN CORPUSCULAR HEMOGLOBIN 29.6 pg (25-34); MEAN CORPUSCULAR HGB CONC 31.7 g/dl (32-36); MEAN PLATELET VOLUME 8.7 fL (7.4-10.4); NEUT % 68.3 %; PLATELET COUNT 225 K/uL (130-400); RED BLOOD COUNT 4.63 M/uL (4.7-6.1); WHITE BLOOD COUNT 10.57 K/uL (4.8-10.8)
[2017-04-14 05:55] LABS: CREATININE 0.76 mg/dl (0.60-1.40); MAGNESIUM 1.9 mg/dl (1.8-2.4); PHOSPHORUS 2.3 mg/dl (2.5-4.9); POTASSIUM 4.1 mmol/L (3.5-5.1)
[2017-04-14 06:22] LABS: CALCIUM 8.6 mg/dl (8.5-10.1)
[2017-04-14] MEDS: ENOXAPARIN 40 MG/0.4 ML SYR SC SCH (08:29)
[2017-04-14] MEDS: LEVOFLOXACIN / D5W 750 MG in PREMIXED IN D5W 150 ML IV SCH (08:30)
[2017-04-14] MEDS: INSULIN GLARGINE SOLOSTAR 100 UNITS/ML 3 ML PEN SC SCH ×2 (08:35→22:04)
[2017-04-14] MEDS: INSULIN ASPART 100 UNITS/ML 3 ML PEN SC SCH ×4 (08:35→21:07)
[2017-04-14] MEDS ORDERED: INSULIN GLARGINE SOLOSTAR 100 UNITS/ML 3 ML PEN SC SCH (09:00)
--- NOTE | 2017-04-14 10:36 | Hospitalist Progress Note ---
Hospitalist Progress Note Date of Service Apr 14, 2017. Subjective Pt evaluation today including: conversation w/ patient Pt still having some abd pain with drinking any fluids. He is still nauseated, no more diarrhea. Says it usually takes 3 days for him to get better. He says that Zofran and phenergan help usually All Other Systems: Reviewed and Negative Objective Vital Signs Date Time Temp Pulse Resp B/P (MAP) Pulse Ox O2 Delivery O2 Flow Rate FiO2 04/14/17 08:00 Room Air 04/14/17 07:25 37.0 77 20 127/77 (94) 98 04/14/17 04:00 99 Room Air 04/14/17 02:53 36.8 79 20 127/74 (91) 98 Room Air 04/14/17 00:27 36.9 78 20 136/83 (100) 98 Room Air 04/13/17 23:59 99 Room Air 04/13/17 20:00 99 Room Air 04/13/17 18:59 37.0 80 19 130/80 (97) 99 Room Air 04/13/17 16:04 36.8 90 20 136/86 (103) 96 Room Air 04/13/17 16:00 Room Air 04/13/17 12:00 Room Air 04/13/17 10:50 36.7 79 20 119/77 (91) 99 Room Air Physical Exam General Appearance: no apparent distress, + thin Eyes: normal inspection, sclerae normal ENT: hearing grossly normal Neck: trachea midline Respiratory/Chest: lungs clear, normal breath sounds, no respiratory distress, no accessory muscle use Cardiovascular: regular rate, rhythm, no edema, no gallop, no murmur Abdomen: normal bowel sounds, soft, + tenderness (mild in RLQ w/o guarding) Extremities: non-tender, normal inspection, no pedal edema, no calf tenderness Neurologic/Psychiatric: alert, + depressed affect Skin: normal color, warm/dry, no rash Laboratory Results Last 24 Hours Test 04/13/17 11:28 04/13/17 12:07 04/13/17 14:24 04/13/17 16:05 Venous Blood pH 7.40 Sodium Level 143 mmol/L Potassium Level 3.8 mmol/L Chloride Level 108 mmol/L Carbon Dioxide Level 23 mmol/L Anion Gap 12.0 mmol/L Blood Urea Nitrogen 8 mg/dl Creatinine 1.10 mg/dl Est Creatinine Clear Calc Drug Dose 84.4 ml/min Estimated GFR () 107.6 Estimated GFR (Non- 92.8 BUN/Creatinine Ratio 7.6 Random Glucose 292 mg/dl Calcium Level 8.7 mg/dl Phosphorus Level 1.9 mg/dl Total Bilirubin 0.6 mg/dl Direct Bilirubin 0.1 mg/dl Aspartate Amino Transf (AST/SGOT) 37 U/L Alanine Aminotransferase (ALT/SGPT) 70 U/L Alkaline Phosphatase 108 U/L Total Protein 6.6 gm/dl Albumin 2.8 gm/dl Bedside Glucose 198 mg/dl 162 mg/dl 147 mg/dl Test 04/13/17 18:41 04/13/17 20:29 04/13/17 22:29 04/14/17 00:25 Bedside Glucose 130 mg/dl 150 mg/dl 160 mg/dl 159 mg/dl Test 04/14/17 02:38 04/14/17 05:04 04/14/17 05:09 04/14/17 06:18 Bedside Glucose 174 mg/dl 201 mg/dl 197 mg/dl White Blood Count 10.57 K/uL Red Blood Count 4.63 M/uL Hemoglobin 13.7 g/dL Hematocrit 43.2 % Mean Corpuscular Volume 93.3 fL Mean Corpuscular Hemoglobin 29.6 pg Mean Corpuscular Hemoglobin Concent 31.7 g/dl Platelet Count 225 K/uL Mean Platelet Volume 8.7 fL Neutrophils (%) (Auto) 68.3 % Lymphocytes (%) (Auto) 23.7 % Monocytes (%) (Auto) 7.0 % Eosinophils (%) (Auto) 0.1 % Basophils (%) (Auto) 0.2 % Neutrophils # (Auto) 7.22 K/uL Lymphocytes # (Auto) 2.51 K/uL Monocytes # (Auto) 0.74 K/uL Eosinophils # (Auto) 0.01 K/uL Basophils # (Auto) 0.02 K/uL RDW Standard Deviation 44.3 fL RDW Coefficient of Variation 12.9 % Immature Granulocyte % (Auto) 0.7 % Immature Granulocyte # (Auto) 0.07 K/uL Sodium Level 140 mmol/L Potassium Level 4.1 mmol/L Chloride Level 105 mmol/L Carbon Dioxide Level 27 mmol/L Anion Gap 8.0 mmol/L Blood Urea Nitrogen 7 mg/dl Creatinine 0.76 mg/dl Est Creatinine Clear Calc Drug Dose 122.1 ml/min Estimated GFR () 147.0 Estimated GFR (Non- 126.8 BUN/Creatinine Ratio 9.0 Random Glucose 213 mg/dl Calcium Level 8.6 mg/dl Phosphorus Level 2.3 mg/dl Magnesium Level 1.9 mg/dl Test 04/14/17 08:28 Bedside Glucose 225 mg/dl Assessment and Plan 26 yo male with DMI and DKA, intractable N/V/D. Recent PNA on CXR. DKA-stopped insulin gtt after gap closed, started on Lantus, continue IVFs with KCl, today again he continues with hyperglycemia and gap remains closed -HgbA1C continues to be 11.1% (same as December 2016) -increased Lantus to 10 units bid from home dose 10 daily -increase aggressiveness of SSI today for hyperglycemia -SSI, continue q2h glucose checks -CDE consult appreciated Abd pain/Intractable N/V/D--> seems to be his pattern historically secondary to dehydration/DKA. Positive UDS for opiates but Hycodan recently prescribed but could be using illicit opioids as well. CT abd/pel only with enteritis. Also with marijuana on UDS. Abd pain improved, diarrhea resolved, continues with nausea and dry heaving today but overall seems a little improved -morphine prn abd pain -continue IVFs and increase to 200 mls/hr -continue antiemetics -f/u confirmatory UDS for which specific opioids Proph-heparin Dispo-CM for any needs on discharge
[2017-04-14] MEDS: PANTOprazole INJ 40 MG in SYRINGE 0 ML IV SCH (11:45)
[2017-04-14 17:21] LABS: COD UR NEGATIVE NG/ML (CUTOFF=50); HYDROCOD UR 183 NG/ML (CUTOFF=50); HYDROMOR UR NEGATIVE NG/ML (CUTOFF=50); MORPHINE UR NEGATIVE NG/ML (CUTOFF=50); NORHYDROCODONE CONF UR NEGATIVE NG/ML (CUTOFF=50); OXYMORPH UR NEGATIVE NG/ML (CUTOFF=50)
[2017-04-14] MEDS ORDERED: NURSING VERBAL MED ORDER ONE (22:15)
[2017-04-15] MEDS: SODIUM CHLOR 0.45% + 20MEQ KCL 1,000 ML IV SCH ×3 (02:40→11:45)
[2017-04-15 06:07] LABS: BASO % 0.2 %; BASO ABS # 0.02 K/uL (0-0.2); COMPLETE YES; EOS % 0.4 %; HEMATOCRIT 40.8 % (42-52); IG% 0.8 %; LYMPH % 25.5 %; LYMPH ABS # 2.53 K/uL (1.2-3.4); MEAN CELL VOLUME 91.7 fL (80-100); MEAN CORPUSCULAR HEMOGLOBIN 30.8 pg (25-34); MEAN CORPUSCULAR HGB CONC 33.6 g/dl (32-36); MEAN PLATELET VOLUME 8.5 fL (7.4-10.4); MONO % 9.6 %; NEUT % 63.5 %; PLATELET COUNT 217 K/uL (130-400); RED BLOOD COUNT 4.45 M/uL (4.7-6.1); WHITE BLOOD COUNT 9.94 K/uL (4.8-10.8)
[2017-04-15] MEDS: ONDANSETRON INJ 2 MG/ML 2 ML VIAL IV PRN (06:13)
[2017-04-15 06:43] LABS: BLOOD UREA NITROGEN 4 mg/dl (7-18); BUN/CREATININE RATIO 5.5 (10-20); CARBON DIOXIDE 30 mmol/L (21-32); CHLORIDE 97 mmol/L (98-107); CREATININE 0.72 mg/dl (0.60-1.40); GLUCOSE 180 mg/dl (70-99); MAGNESIUM 1.8 mg/dl (1.8-2.4); SODIUM 135 mmol/L (136-145)
[2017-04-15 06:54] VITALS: BP 135/83; PULSE 73; TEMP 37.1; O2SAT 99
[2017-04-15 07:29] LABS: CALCIUM 8.4 mg/dl (8.5-10.1)
[2017-04-15] MEDS ORDERED: INSULIN GLARGINE SOLOSTAR 100 UNITS/ML 3 ML PEN SC SCH (08:00)
[2017-04-15] MEDS: PROMETHAZINE HCL INJ 12.5 MG in SODIUM CHLORIDE 0.9% 50ML 50 ML IV PRN (08:26)
[2017-04-15] MEDS: LEVOFLOXACIN / D5W 750 MG in PREMIXED IN D5W 150 ML IV SCH (08:36)
[2017-04-15] MEDS: INSULIN ASPART 100 UNITS/ML 3 ML PEN SC SCH ×2 (08:42→11:00)
[2017-04-15] MEDS: ENOXAPARIN 40 MG/0.4 ML SYR SC SCH (08:44)
[2017-04-15] MEDS: PANTOprazole INJ 40 MG in SYRINGE 0 ML IV SCH (11:45)
[2017-04-15] MEDS ORDERED: LEVO-366 PO (13:56)
--- NOTE | 2017-04-15 14:00 | Discharge Instructions ---
Discharge Instructions Date of Service Apr 15, 2017. Admission Reason for Admission: DKA Discharge Discharge Diagnosis / Problem: DKA Discharge Goals Goal(s): Improve disease control, Therapeutic intervention Activity Recommendations Activity Limitations: resume your previous activity Lifting Limitations: none Exercise/Sports Limitations: gradually increase as tolerated Shower/Bathe: no limitations . Instructions / Follow-Up Instructions / Follow-Up You were admitted with DKA likely due to your recent diagnosis of pneumonia, along with not taking your short acting insulin due to feeling sick. You had profuse nausea, vomiting, diarrhea, and some abdominal pain associated with your DKA that is now resolved. Please reschedule your follow up visit with Dr. Garcia for within 1 week. You should also follow up with Tato at the Endocrinology office within 1 week. Current Hospital Diet Patient's current hospital diet: Diabetes Type 1 Diet, Clear Liquid Diet Discharge Diet Recommended Diet: Diabetes Type 1 Diet Procedures Procedures Performed: Chest xray CT abdomen/pelvis Abdomen xray Pending Studies Studies pending at discharge: yes List of pending studies: Final Blood culture results Laboratory Results Hemoglobin A1c Test 04/13/17 04:25 Range/Units Estimated Average Glucose 272 mg/dl Hemoglobin A1c 11.1 H 4.5-5.6 % Medical Emergencies . Who to Call and When: Medical Emergencies: If at any time you feel your situation is an emergency, please call 911 immediately. . Non-Emergent Contact Non-Emergency issues call your: Primary Care Provider, Specialist ( Coding And Reimbursement Specialist) Call Non-Emergent contact if: you have a fever, your pain is not controlled, your pain is worsening, your pain is unusual for you, your pain is concerning you, you have any medication questions your glucose is getting high again or if you have recurrent nausea or vomiting. . . "Provider Documentation" section prepared by Deepika Aguayo. . VTE Core Measure Inpt VTE Proph given/why not?: Enoxaparin (Lovenox)SQ
[2017-04-15 14:35] VITALS: BP 135/83; PULSE 73; TEMP 37.1; O2SAT 99
--- NOTE | 2017-04-29 16:15 | Discharge Summary ---
Discharge Summary Date of Service Apr 15, 2017. Discharge Summary Admission Date: Apr 12, 2017 at 04:50 Discharge Date: Apr 15, 2017 Discharge Disposition: Home Principal Diagnosis: DKA Problems/Secondary Diagnoses: Intractable nausea, vomiting, diarrhea Abdominal pain DMI Transaminitis-resolved Community acquired pneumonia Marijuana abuse Current smoker Procedures: Chest xray KUB CT abd/pel Consultations: None Medication Reconciliation Changed Medications: Levofloxacin (Levaquin) 500 Mg Tab 500 MG PO DAILY for 2 Days, #2 TAB (Changed from: 7; 7) He already has a Rx for this at home Continued Medications: Insulin Glargine (Lantus Solostar) 100 Unit/Ml Inj 10 UNIT SC DAILY for 30 Days, #1 PEN 0 Refills Insulin Human Lispro (Humalog) 1 Ea Inj SQ BID SLIDING SCALE WITH CARB COUNT Discontinued Medications: Hydrocodone W/ Homatropine (Hycodan 5/1.5MG 5 Ml) 1 Syp Syp 5-10 ML PO Q6 PRN for Cough, #120 ML Referrals At Discharge Follow up Referrals: Family Practice Referral - Within 1 Week with Nakul Garcia M.D. Physician Referral - Within 1-2 Weeks with Nathaniel Orr M.D. Discharge Exam Doing much better, tolerating clears diet, eager to get home. No further N/V/D, no more abdominal pain. Review of Systems: Constitutional: No fever Eyes: No problem reported ENT: No problem reported Respiratory: No problem reported Cardiovascular: No problem reported Abdomen: No problem reported Musculoskeletal: No problem reported Genitourinary - Male: No problem reported Neurologic: No problem reported Psychiatric: + substance abuse Endocrine: No problem reported Hematologic / Lymphatic: No problem reported Integumentary: No problem reported Physical Exam: General Appearance: no apparent distress, + thin Eyes: normal inspection, sclerae normal ENT: hearing grossly normal, pharynx normal Neck: trachea midline Respiratory/Chest: lungs clear, normal breath sounds, no respiratory distress, no accessory muscle use Cardiovascular: regular rate, rhythm, no edema, no gallop, no murmur Abdomen / GI: normal bowel sounds, non tender, soft, no organomegaly, no pulsatile mass Extremities: normal inspection, no calf tenderness, no pedal edema, normal range of motion Neurologic/Psychiatric: no motor/sensory deficits, alert, normal mood/affect , oriented x 3 Skin: normal color, warm/dry, no rash Hospital Course 26 yo male with DMI and DKA, intractable N/V/D. Recent PNA on CXR diagnosed 3 days prior to admission during an ER visit. DKA-stopped insulin gtt after gap closed, started on Lantus, received a lot of IVFs with KCl -HgbA1C continues to be 11.1% (same as December 2016)-uncontrolled DMI -increased Lantus to 10 units bid from home dose 10 daily but then hypoglycemia- -> return to home dose of 10 units on discharge and f/u with Endocrine -SSI, glucose checks -CDE consult appreciated Abd pain/Intractable N/V/D--> seems to be his pattern historically secondary to dehydration/DKA. Positive UDS for opiates but Hycodan recently prescribed but could be using illicit opioids as well. CT abd/pel only with enteritis. Also with marijuana on UDS. Abd pain improved, diarrhea resolved,N/V completely resolved at time of discharge and was tolerating a diet -morphine prn abd pain -was given IVFs, antiemetics -f/u confirmatory UDS for which specific opioids Proph-heparin Dispo-to home Total Time Spent: Greater than 30 minutes This includes examination of the patient, discharge planning, medication reconciliation, and communication with other providers. Discharge Instructions Please refer to the electronic Patient Visit Report (Discharge Instructions) for additional information. Follow-Up PCP within 1 week Endocrinology within 1 week Additional Copies To Nakul Garcia M.D.; Nathaniel Orr M.D.
== END 2017-04-15 15:15 | disposition home or self-care (01) | DRG 637 ==
LOC: C.EDA 01:39 → C.2T 04:50 → ENRESERV 05:31 → C.MS4W 04-14 12:41
PROVIDERS: ADMIT Internal Medicine; ATTEND Family Medicine
DX: E10.10 Type 1 diabetes mellitus with ketoacidosis without coma (principal); J18.9 Pneumonia, unspecified organism; R64 Cachexia; Z68.1 Body mass index [BMI] 19.9 or less, adult; E86.0 Dehydration; R82.5 Elevated urine levels of drugs, medicaments and biological substances; F17.210 Nicotine dependence, cigarettes, uncomplicated; Z86.14 Personal history of Methicillin resistant Staphylococcus aureus infection; Z79.899 Other long term (current) drug therapy

== ENCOUNTER 2017-06-05 14:25 | Emergency (ER) | payer OTHER ==
[~2017-06-05] VITALS: Ht 182.9 cm; Wt 60.8 kg
[~2017-06-05 14:25] MED LIST changes: -HYDR5SYP11 PO; -VNTHFA/IN INH
[2017-06-05 14:31] VITALS: BP 106/67; PULSE 91; TEMP 36.7; O2SAT 98; Ht 182.9 cm; Wt 60.8 kg
[2017-06-05] MEDS ORDERED: IBUPROFEN 600 MG TAB PO STA (14:54)
[2017-06-05] MEDS ORDERED: CEPH500C PO (15:02)
--- NOTE | 2017-06-05 18:25 | EMERGENCY ROOM VISIT NOTE ---
ED Visit Note First contact with patient: 14:49 CHIEF COMPLAINT: Infection left nipple HISTORY OF PRESENT ILLNESS: This 26-year-old male presents the ER with chief complaint that he thinks he got bit by a spider on his left nipple. At first he thought it was an ingrown hair and his girlfriend tried to remove it with a tweezers. That was yesterday, today it is red and swollen. There is no purulent drainage. The patient denies any fever. REVIEW OF SYSTEMS: 6 system review was performed and was negative unless stated otherwise in history of present illness. PMH: The patient is healthy; there is no significant medical or surgical history. SOCIAL HISTORY: Patient lives at home. Patient admits to tobacco use and occasional alcohol use. PHYSICAL EXAM: Vital Signs: Were reviewed Reviewed Nurse's notes. GEN.: 26- year-old white male appears uncomfortable secondary to pain. MENTAL STATUS: Alert and oriented 3. The patient is very dramatic. LEFT NIPPLE: There is a small scab on the medial aspect of the areola which is slightly red and edematous. There is no surrounding erythema around the areola. EMERGENCY COURSE: The patient was evaluated. The patient was given Motrin 600 mg by mouth. Antibiotic ointment and a bandage was applied. DIAGNOSIS: Skin infection left areola DISCHARGE INSTRUCTIONS & TREATMENT: Ibuprofen 6 mg every 6 hours with food for pain. Take Keflex as prescribed. If symptoms are not improving in 3-4 days, follow-up with your family doctor. Problem List Medical Problems: (1) Abscess of right lower leg Status: Resolved (2) Abscess, neck Status: Resolved (3) Abscess, neck Status: Resolved (4) Acute bronchitis Status: Resolved (5) Cellulitis Status: Resolved (6) Diabetes Status: Chronic (7) DKA (diabetic ketoacidoses) Status: Resolved (8) Heel pain Status: Resolved (9) Hordeolum internum of left lower eyelid Status: Resolved (10) Hx MRSA infection Status: Chronic (11) Left otitis externa Status: Resolved (12) Left otitis externa Status: Resolved (13) Nasal pain Status: Resolved Current/Historical Medications Scheduled Insulin Glargine (Lantus Solostar), 10 UNIT SC DAILY Insulin Human Lispro (Humalog), SQ BID Levofloxacin (Levaquin), 500 MG PO DAILY Allergies Coded Allergies: Hydrocodone (Verified Adverse Reaction, Mild, ITCHING, 04/12/17) Vital Signs Date Time Temp Pulse Resp B/P (MAP) Pulse Ox O2 Delivery O2 Flow Rate FiO2 06/05/17 14:31 36.7 91 18 106/67 98 Room Air Departure Information Referrals No Doctor, Assigned (PCP) Patient Instructions [facility]
== END 2017-06-05 15:15 | disposition home or self-care (01) ==
LOC: C.EDB 14:26 → C.EDD 15:15
DX: L08.9 Local infection of the skin and subcutaneous tissue, unspecified (principal); E11.9 Type 2 diabetes mellitus without complications; Z79.4 Long term (current) use of insulin; Z79.899 Other long term (current) drug therapy; Z87.2 Personal history of diseases of the skin and subcutaneous tissue; F17.200 Nicotine dependence, unspecified, uncomplicated

== ENCOUNTER 2017-06-09 14:58 | Inpatient (IN) | payer OTHER ==
[~2017-06-09] VITALS: Ht 182.9 cm; Wt 60.9 kg
[~2017-06-09 14:58] MED LIST changes: +CEPH500C PO; -LEVO-366 PO
[2017-06-09] MEDS ORDERED: SODIUM CHLORIDE 0.9% 1000ML 1,000 ML IV STA ×2 (15:18→15:47)
[2017-06-09] MEDS ORDERED: MoRPHine SULFATE 10 MG/ML CARP/VIAL IV STA (15:18)
--- NOTE | 2017-06-09 15:22 | EMERGENCY ROOM VISIT NOTE ---
History Report prepared by Augieibe: Stacia Gillette Under the Supervision of: Dr. Abdirahman Magana M.D. First contact with patient: 15:11 Chief Complaint: FACIAL PAIN/INJURY Stated Complaint: SWOLLEN FACE History of Present Illness The patient is a 26 year old male who presents to the Emergency Room with complaints of constant facial swelling that start this morning. The patient notes that he has tooth and jaw pain as well as a headache. He was in the ED four days ago for an infection on his left nipple. The patient states he took a Percocet this morning that gave him minimal relief. The patient has Type 1 Diabetes. He has not been on any antibiotics. He has no neck stiffness, shob, cp, abdominal pain, urinary symptoms nor rashes otherwise. He has history of MRSA with multiple previous I&D, admissions. He admits not taking insulin as prescribed and also admits he doesn't care. Source of History: patient Onset: this morning Position: other (face) Timing: constant Associated Symptoms: + headache Note: Pt notes tooth and jaw pain Review of Systems See HPI for pertinent positives & negatives. A total of 10 systems reviewed and were otherwise negative. Past Medical & Surgical Medical Problems: (1) Abscess of right lower leg (2) Abscess, neck (3) Abscess, neck (4) Acute bronchitis (5) Cellulitis (6) Diabetes (7) DKA (diabetic ketoacidoses) (8) Heel pain (9) Hordeolum internum of left lower eyelid (10) Hx MRSA infection (11) Left otitis externa (12) Left otitis externa (13) Nasal pain Family History Patient reports no known family medical history. no pertinent family history stated. Social History Smoking Status: Current Every Day Smoker Alcohol Use: occasionally Marital Status: in relationship Housing Status: lives with significant other Occupation Status: employed Current/Historical Medications Scheduled Cephalexin Monohydrate (Keflex), 500 MG PO QID Insulin Glargine (Lantus Solostar), 25 UNITS SC AMPM Insulin Human Lispro (Humalog), SQ BID Allergies Coded Allergies: Latex1 -Allergic Contact Dermititis (Verified Allergy, Unknown, contact reaction, 06/09/17) Hydrocodone (Verified Adverse Reaction, Mild, ITCHING, 06/09/17) Physical Exam Vital Signs Date Time Temp Pulse Resp B/P (MAP) Pulse Ox O2 Delivery O2 Flow Rate FiO2 06/09/17 16:08 88 16 102/67 98 Room Air 06/09/17 15:04 36.7 109 18 118/71 98 Room Air Physical Exam GENERAL: Patient angry, upset appearing, moderate distress, and thrashes when touched HEENT: No acute trauma, normocephalic atraumatic, mucous membranes moist, no nasal congestion, no scleral icterus. NECK: No stridor, no adenopathy, no meningismus, trachea is midline. LUNGS: No dyspnea. Clear to auscultation and equal bilaterally. No wheeze, no rhonchi. HEART: Regular rate and rhythm. No murmurs, rubs, gallops appreciated. ABDOMEN: Soft, nontender, bowel sounds positive, no masses appreciated, no peritonitis. BACK: No midline tenderness, no CVA tenderness EXTREMITIES: Normal motion all extremities, no cyanosis, no edema. NEUROLOGIC: Alert and oriented, no acute motor or sensory deficits, no focal weakness, cranial nerves grossly intact. SKIN: No rash, no jaundice, no diaphoresis. Small pimple on left face with ecchymosis and swelling. Left nipple has swelling and necrotic abscess Medical Decision & Procedures Laboratory Results 06/09/17 15:30 Red Blood Count 4.53, Mean Corpuscular Volume 95.8, Mean Corpuscular Hemoglobin 30.7, Mean Corpuscular Hemoglobin Concent 32.0, Mean Platelet Volume 8.6, Neutrophils (%) (Auto) 77.8, Lymphocytes (%) (Auto) 13.5, Monocytes (%) (Auto) 7.4, Eosinophils (%) (Auto) 0.5, Basophils (%) (Auto) 0.3, Neutrophils # (Auto) 11.95, Lymphocytes # (Auto) 2.08, Monocytes # (Auto) 1.13, Eosinophils # (Auto) 0.08, Basophils # (Auto) 0.05 06/09/17 15:30 Test 06/09/17 15:30 06/09/17 15:43 06/09/17 16:54 White Blood Count 15.36 K/uL (4.8-10.8) Red Blood Count 4.53 M/uL (4.7-6.1) Hemoglobin 13.9 g/dL (14.0-18.0) Hematocrit 43.4 % (42-52) Mean Corpuscular Volume 95.8 fL (80-100) Mean Corpuscular Hemoglobin 30.7 pg (25-34) Mean Corpuscular Hemoglobin Concent 32.0 g/dl (32-36) Platelet Count 257 K/uL (130-400) Mean Platelet Volume 8.6 fL (7.4-10.4) Neutrophils (%) (Auto) 77.8 % Lymphocytes (%) (Auto) 13.5 % Monocytes (%) (Auto) 7.4 % Eosinophils (%) (Auto) 0.5 % Basophils (%) (Auto) 0.3 % Neutrophils # (Auto) 11.95 K/uL (1.4-6.5) Lymphocytes # (Auto) 2.08 K/uL (1.2-3.4) Monocytes # (Auto) 1.13 K/uL (0.11-0.59) Eosinophils # (Auto) 0.08 K/uL (0-0.5) Basophils # (Auto) 0.05 K/uL (0-0.2) RDW Standard Deviation 44.8 fL (36.4-46.3) RDW Coefficient of Variation 12.9 % (11.5-14.5) Immature Granulocyte % (Auto) 0.5 % Immature Granulocyte # (Auto) 0.07 K/uL (0.00-0.02) Anion Gap 18.0 mmol/L (3-11) Est Creatinine Clear Calc Drug Dose 84.7 ml/min Estimated GFR () 107.6 Estimated GFR (Non- 92.8 BUN/Creatinine Ratio 11.7 (10-20) Calcium Level 8.8 mg/dl (8.5-10.1) C-Reactive Protein 0.87 mg/dl (0-0.29) Beta-Hydroxybutyric Acid 66.28 mg/dL (0.2-2.81) Bedside Lactic Acid Venous 4.88 mmol/L (0.90-1.70) Venous Blood pH 7.38 (7.36-7.41) Venous Blood Partial Pressure CO2 35 mmHg (38.0-50.0) Venous Blood Partial Pressure O2 50 mmHg Venous Blood HCO3 20 mmol/L Venous Blood Oxygen Saturation 82.4 % Venous Blood Base Excess -4.9 mEq/L Laboratory results as reviewed by me. Medications Administered Medications (Trade) Dose Ordered Sig/Zane Route Start Time Stop Time Status Last Admin Dose Admin Morphine Sulfate (MoRPHine SULFATE INJ) 6 mg NOW STAT IV 06/09/17 15:18 06/09/17 15:19 DC 06/09/17 15:39 6 MG Sodium Chloride 1,000 ml @ 999 mls/hr Q1H1M STAT IV 06/09/17 15:18 06/09/17 16:18 DC 06/09/17 15:39 999 MLS/HR Sodium Chloride 1,000 ml @ 999 mls/hr Q1H1M STAT IV 06/09/17 15:47 06/09/17 16:47 DC 06/09/17 16:06 999 MLS/HR Vancomycin HCl 1500 mg/Sodium Chloride 530 ml @ 200 mls/hr ONE STAT IV 06/09/17 15:47 06/09/17 18:25 DC 06/09/17 17:01 200 MLS/HR Piperacillin Sod/ Tazobactam Sod (Zosyn Iv) 4.5 gm NOW STAT IV 06/09/17 15:47 06/09/17 15:49 DC 06/09/17 16:03 4.5 GM Morphine Sulfate (MoRPHine SULFATE INJ) 6 mg Q1H PRN IV 06/09/17 16:15 06/23/17 16:14 06/09/17 16:18 6 MG Insulin Human Regular 1.5 unit/ Syringe 1.5 ml @ 1 mls/min TODAY@1645 IV 06/09/17 16:45 06/09/17 16:47 DC 06/09/17 17:09 1 MLS/MIN Insulin Human Regular 250 units/ Sodium Chloride 252.5 ml @ 0 mls/hr DAILY@1130 IV 06/09/17 16:45 06/10/17 11:29 06/09/17 17:10 1.4 MLS/HR ED Course 1512: The patient was evaluated in room C12B. A complete history and physical exam was performed. 1518: Sodium Chloride 1000 ml @ 999 mls/hr, Morphine Sulfate 6 mg IV. 1530: Lidocaine HCl 20 ml INFIL. 1547: Zosyn Iv 4.5 gm IV, Vancomycin HCl 1500mg/Sodium Chloride 530 ml @ 200 mls /hr, Sodium Chloride 1000 ml @ 999 mls/hr. 1548: I checked on the patient and he has a lactate of 5. 1600: I rechecked on the patient, he states he is feeling better and willing to stay in hospital. 1608: Insulin Human regular 1 ea. N/A, Morphine Sulfate 6 mg IV 1609: Dr. Spears is aware of the patient's case and is comfortable admitting him. He also suggests ordering a insulin drip. 1615: Morphine Sulfate 6 mg IV. 1645: Glucagon 1 mg SQ, Dextrose 50 ml IV, Glucose 1 tabs PO, Glucose PO, Insulin Human Regular 250 units/Sodium Chloride 252.5 ml @ 0 mls/hr IV, Insulin Human Regular 1.5 unit/Syringe 1.5 ml @1 mls/min IV. 1700: Upon reevaluation, the patient is resting. Discussed results and treatment plan with the patient. He verbalized understanding and agreement with the treatment plan. The patient will be evaluated for further management. 1900: Insulin Aspart SLIDING SCALE SC Medical Decision 26 yr old male arrives for left facial cellulitis. Tachy, lactic acidosis, with infection must be treated as septic though also with hyperglycemia, low CO2 and admits not controlling BG thus secondary DKA also developing. Aggressively treated with ABx, attempt at I&D (without exudate), and fluids. Started in IV insulin per protocol. Stable and breathing comfortably. IV narcotics for pain as clearly this is uncomfortable. No evidence of meningitis by exam nor is in fulminant shock at this time. Left nipple with necrotic infection though not needing debridement at this time. Will need to come in for further work-up, treatment and evaluation. [place] Drug Monitoring Program Search Results: patient reviewed within database Drug Monitoring Findings: Narcotic cough medication from 2 months ago Medication Reconcilliation Current Medication List: was personally reviewed by ne Blood Pressure Screening Patient's blood pressure: Normal blood pressure Consults Time Called: 1607 Consulting Physician: Dr. Spears Returned Call: 1608 Discussed the patient's case. Impression Primary Impression: Sepsis Additional Impressions: Facial cellulitis Nipple infection DKA (diabetic ketoacidoses) Critical Care I have personally spent greater than 45 minutes of critical care time in the direct management of this patient. This was a life/limb threatening event. This includes time spent evaluating patient, direct bedside care, chart review, placing orders, interpretation of diagnostic studies, discussion with consultants, patient, and family members, as well as other required patient management activities. This 45 minutes is in excess of all separately billable procedures. Scribe Attestation The scribe's documentation has been prepared under my direction and personally reviewed by me in its entirety. I confirm that the note above accurately reflects all work, treatment, procedures, and medical decision making performed by me. Departure Information Dispostion Being Evaluated By Hospitalist Referrals No Doctor, Assigned (PCP) Patient Instructions My [facility] Problem Qualifiers
[2017-06-09] MEDS ORDERED: XYLOCAINE 1%/SOD BICARB 20 ML VIAL INFIL ONE (15:30)
[2017-06-09 15:44] LABS: HEMATOCRIT 43.4 % (42-52); MEAN CELL VOLUME 95.8 fL (80-100); MEAN CORPUSCULAR HEMOGLOBIN 30.7 pg (25-34); RED BLOOD COUNT 4.53 M/uL (4.7-6.1); WHITE BLOOD COUNT 15.36 K/uL (4.8-10.8)
[2017-06-09 15:45] LABS: BASO % 0.3 %; BASO ABS # 0.05 K/uL (0-0.2); COMPLETE YES; EOS % 0.5 %; IG% 0.5 %; LYMPH % 13.5 %; LYMPH ABS # 2.08 K/uL (1.2-3.4); MEAN PLATELET VOLUME 8.6 fL (7.4-10.4); MONO % 7.4 %; NEUT % 77.8 %; PLATELET COUNT 257 K/uL (130-400)
[2017-06-09] MEDS ORDERED: VANCOMYCIN INJ 1,500 MG in SODIUM CHLORIDE 0.9% 500ML 500 ML IV STA (15:47)
[2017-06-09] MEDS ORDERED: PIPERACILLIN/TAZOBACTAM 4.5 GM/100ML D5W IV STA (15:47)
[2017-06-09 16:04] LABS: BUN/CREATININE RATIO 11.7 (10-20); C-REACTIVE PROTEIN 0.87 mg/dl (0-0.29); CALCIUM 8.8 mg/dl (8.5-10.1); CREATININE 1.1 mg/dl (0.60-1.40); POTASSIUM 3.6 mmol/L (3.5-5.1)
[2017-06-09] MEDS ORDERED: INSULIN IV INFUSION PROTOCOL STA ×2 (16:08→17:11)
[2017-06-09] MEDS ORDERED: MODERATE STRESS LEVEL ONE ×2 (16:15→17:15)
[2017-06-09] MEDS ORDERED: MoRPHine SULFATE 10 MG/ML CARP/VIAL IV PRN (16:15)
[2017-06-09] MEDS ORDERED: INSDGIPEN SC (16:20)
[2017-06-09 16:37] LABS: BETA-HYDROXYBUTYRATE 66.28 mg/dL (0.2-2.81)
[2017-06-09] MEDS ORDERED: GLUCOSE 10 TABS/TUBE PO PRN (16:45)
[2017-06-09] MEDS ORDERED: INSULIN REGULAR 250 UNITS in SODIUM CHLORIDE 0.9% 250ML 250 ML IV SCH ×2 (16:45→19:10)
[2017-06-09] MEDS ORDERED: GLUCOSE 40% GEL 15 GM TUBE PO PRN (16:45)
[2017-06-09] MEDS ORDERED: INSULIN HUMAN REGULAR IV BOLUS 1.5 UNIT in SYRINGE 0 ML IV SCH (16:45)
[2017-06-09] MEDS ORDERED: DEXTROSE 50% 50 ML SYR IV PRN (16:45)
[2017-06-09] MEDS ORDERED: GLUCAGON FOR INJ 1 MG VIAL SQ PRN (16:45)
--- NOTE | 2017-06-09 16:55 | EMERGENCY ROOM VISIT NOTE ---
ED Visit Note I was asked by Dr. Magana to perform incision and drainage of this patient's left facial abscess. Exam reveals an area of induration over the left cheek which measures approximately 2 cm in diameter. There is no obvious fluctuance or drainage. Verbal consent was obtained to perform the procedure. After saline and Betadine cleansing and 1 mL of 1% buffered lidocaine anesthesia, the central area of induration was incised with a number 11 scalpel blade. No purulent material was expressed. Needle drivers were used to probe the pocket and open up the incision slightly. No drainage was expressed. The area was cleansed and a bandage applied.
[2017-06-09] MEDS ORDERED: ALUMINUM/MAGNESIUM/SIMETH (MAALOX MAX) 30 ML UDC PO PRN (17:15)
[2017-06-09] MEDS ORDERED: PHARMACY GLYCEMIC MGMT CONSULT PRN (17:15)
[2017-06-09] MEDS ORDERED: ACETAMINOPHEN 325 MG TAB PO PRN (17:15)
[2017-06-09] MEDS ORDERED: ONDANSETRON INJ 2 MG/ML 2 ML VIAL IV PRN (17:15)
[2017-06-09] MEDS ORDERED: DKA GOAL RANGE 150-250 mg/dl 1 EA ONE (17:15)
[2017-06-09 17:16] LABS: VEN BLD GAS O2 SATURATION 82.4 %; VEN BLOOD GAS BASE EXCESS -4.9 mEq/L
--- NOTE | 2017-06-09 17:25 | History and Physical ---
History & Physical Date & Time of Service: Jun 09, 2017 at 17:19 Chief Complaint: Swollen Face Primary Care Physician: No Doctor, Assigned History of Present Illness Patient presents the ER with facial swelling and pain is in the ER 4 days ago with a left nipple infection is given Keflex and Percocet for that his left face has erythema with a pointing lesion around mid cheek he states he may have had a pimple there. He states his glucoses have been elevated at home and he attempted to control them with sliding scale insulin He is weak and tired feels mildly nauseated He is found to be in DKA with an anion gap with elevated bicarbonate is low and elevated lactic acid. He also has a white blood cell count is up. 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 Family history is unknown to him he says he has no ligamentous family's health Social History Smoking Status: Current Every Day Smoker Marital Status: in relationship Occupational Status: employed Allergies Coded Allergies: Hydrocodone (Verified Adverse Reaction, Mild, ITCHING, 06/09/17) Home Medications Scheduled Cephalexin Monohydrate (Keflex), 500 MG PO QID Insulin Glargine (Lantus Solostar), 25 UNITS SC AMPM Insulin Human Lispro (Humalog), SQ BID Review of Systems ROS: well nourished well developed No double vision but he has had some blurry vision No problems with speech or swallowing No palpitations, chest pain or pressure No Wheezing or breathing issues Mild abdominal pain and nausea but no vomiting diarrhea changes in appetite or weight No burning urine but has had some urine frequency No focal joint pain or muscle pain He has had this enlarging pimple on his left cheek and Compazine pain to his left upper teeth and gums also a healing pimple on his left nipple No unusual bruising or bleeding No focused back pain or numbness or loss of strength No changes in memory or confusion Physical Exam Vital Signs Date Time Temp Pulse Resp B/P (MAP) Pulse Ox O2 Delivery O2 Flow Rate FiO2 06/09/17 16:08 88 16 102/67 98 Room Air 06/09/17 15:04 36.7 109 18 118/71 98 Room Air General Appearance: WD/WN, + moderate distress Head: normocephalic, atraumatic Eyes: PERRL, EOMI ENT: hearing grossly normal, pharynx normal (except for mild redness of his left upper gumline) Neck: supple, no JVD, trachea midline Respiratory/Chest: chest non-tender, lungs clear, normal breath sounds Cardiovascular: regular rate, rhythm, no murmur Abdomen/GI: normal bowel sounds, soft, + tenderness Back: normal inspection, no CVA tenderness, no muscle spasm Extremities/Musculoskelatal: no pedal edema, normal range of motion Neurologic/Psych: alert, oriented x 3 Skin: + pertinent finding (there is a stab wound is half a centimeter of the left cheek abscess that was drained by the ER prior to me evaluating the patient there is a mesh on his left nipple there is surrounding erythema to both areas) Diagnostics Laboratory Results Results Past 24 Hours Test 06/09/17 15:30 06/09/17 15:43 06/09/17 16:54 Range/Units White Blood Count 15.36 4.8-10.8 K/uL Red Blood Count 4.53 4.7-6.1 M/uL Hemoglobin 13.9 14.0-18.0 g/dL Hematocrit 43.4 42-52 % Mean Corpuscular Volume 95.8 80-100 fL Mean Corpuscular Hemoglobin 30.7 25-34 pg Mean Corpuscular Hemoglobin Concent 32.0 32-36 g/dl Platelet Count 257 130-400 K/uL Mean Platelet Volume 8.6 7.4-10.4 fL Neutrophils (%) (Auto) 77.8 % Lymphocytes (%) (Auto) 13.5 % Monocytes (%) (Auto) 7.4 % Eosinophils (%) (Auto) 0.5 % Basophils (%) (Auto) 0.3 % Neutrophils # (Auto) 11.95 1.4-6.5 K/uL Lymphocytes # (Auto) 2.08 1.2-3.4 K/uL Monocytes # (Auto) 1.13 0.11-0.59 K/uL Eosinophils # (Auto) 0.08 0-0.5 K/uL Basophils # (Auto) 0.05 0-0.2 K/uL RDW Standard Deviation 44.8 36.4-46.3 fL RDW Coefficient of Variation 12.9 11.5-14.5 % Immature Granulocyte % (Auto) 0.5 % Immature Granulocyte # (Auto) 0.07 0.00-0.02 K/uL Sodium Level 132 136-145 mmol/L Potassium Level 3.6 3.5-5.1 mmol/L Chloride Level 96 98-107 mmol/L Carbon Dioxide Level 18 21-32 mmol/L Anion Gap 18.0 3-11 mmol/L Blood Urea Nitrogen 13 7-18 mg/dl Creatinine 1.10 0.60-1.40 mg/dl Est Creatinine Clear Calc Drug Dose 84.7 ml/min Estimated GFR () 107.6 Estimated GFR (Non- 92.8 BUN/Creatinine Ratio 11.7 10-20 Random Glucose 464 70-99 mg/dl Calcium Level 8.8 8.5-10.1 mg/dl C-Reactive Protein 0.87 0-0.29 mg/dl Beta-Hydroxybutyric Acid 66.28 0.2-2.81 mg/dL Bedside Lactic Acid Venous 4.88 0.90-1.70 mmol/L Venous Blood pH 7.38 7.36-7.41 Venous Blood Partial Pressure CO2 35 38.0-50.0 mmHg Venous Blood Partial Pressure O2 50 mmHg Venous Blood HCO3 20 mmol/L Venous Blood Oxygen Saturation 82.4 % Venous Blood Base Excess -4.9 mEq/L Microbiology Results 06/09/17 Blood Culture, Received Pending 06/09/17 Blood Culture, Received Pending Diagnostic Radiology Of note elevated white count depressed bicarbonate increased anion gap elevated lactic acid Impression Assessment and Plan 26-year-old male with DKA and skin infection DKA we'll institute DKA protocol insulin drip will try to maintain his Lantus in hopes of returning the basal bolus Regarding his facial abscess use given Vanco and Zosyn in the ER will attempt use Augmentin it is noted that he does have MRSA by history this may prompt us to consider other medications such as clindamycin or even Zyvox Abdominal pain and nausea is likely based on his DKA we will attempt to feed the patient tonight and aggressively hydrate him DVT prevention is based on Lovenox VTE Prophylaxis VTE Risk Assessment Done? Y/N: Yes Risk Level: Moderate
[2017-06-09 17:35] VITALS: O2SAT 98; Ht 182.9 cm; Wt 60.9 kg
[2017-06-09 18:19] VITALS: O2SAT 100
[2017-06-09 18:35] VITALS: BP 104/62; PULSE 84; TEMP 36.5; O2SAT 99
[2017-06-09] MEDS ORDERED: INSULIN ASPART 100 UNITS/ML 3 ML PEN SC SCH ×3 (19:00→21:00)
[2017-06-09] MEDS: OXYCODONE HCL IR 5 MG TAB (IMMEDIATE RELEASE) PO PRN (19:40)
[2017-06-09] MEDS: SODIUM CHLORIDE 0.9% 1000ML 1,000 ML IV SCH ×2 (19:41→20:14)
[2017-06-09] MEDS: AMOXICILLIN/CLAVULANATE TAB 875 MG TAB PO SCH (20:15)
[2017-06-09] MEDS ORDERED: ENOXAPARIN 40 MG/0.4 ML SYR SC SCH (21:00)
[2017-06-09] MEDS ORDERED: INSULIN GLARGINE SOLOSTAR 100 UNITS/ML 3 ML PEN SC SCH (21:00)
[2017-06-09 21:22] LABS: BUN/CREATININE RATIO 11.1 (10-20); CALCIUM 8.6 mg/dl (8.5-10.1); CREATININE 0.84 mg/dl (0.60-1.40); MAGNESIUM 1.9 mg/dl (1.8-2.4); PHOSPHORUS 3.6 mg/dl (2.5-4.9); POTASSIUM 4.3 mmol/L (3.5-5.1)
[2017-06-10] MEDS ORDERED: CEPHALEXIN MONOHYDRATE 500 MG CAP PO SCH
[2017-06-10] MEDS ORDERED: SULFAMETHOXAZOLE/TRIMETHOPRIM DS 800/160MG TAB PO SCH
[2017-06-10 00:06] VITALS: BP 108/70; PULSE 87; TEMP 36.7; O2SAT 97
[2017-06-10 00:07] LABS: BUN/CREATININE RATIO 9.9 (10-20); CALCIUM 8.4 mg/dl (8.5-10.1); CREATININE 0.87 mg/dl (0.60-1.40); MAGNESIUM 1.9 mg/dl (1.8-2.4); PHOSPHORUS 3.2 mg/dl (2.5-4.9); POTASSIUM 4.3 mmol/L (3.5-5.1)
[2017-06-10] MEDS ORDERED: NURSING VERBAL MED ORDER ONE (01:00)
[2017-06-10] MEDS ORDERED: PENDING D5NS+20mEq KCL IVF SCH (01:00)
[2017-06-10] MEDS: OXYCODONE HCL IR 5 MG TAB (IMMEDIATE RELEASE) PO PRN ×2 (01:12→08:02)
[2017-06-10] MEDS ORDERED: D5NSS + 20MEQ KCL 1,000 ML IV SCH (01:30)
[2017-06-10] MEDS ORDERED: PENDING D5 1/2NS+20mEq KCL IVF SCH (01:45)
[2017-06-10] MEDS ORDERED: D5W AND 1/2NSS + 20MEQ KCL 1000 ML IV SCH (02:00)
[2017-06-10 04:00] VITALS: BP 110/72; PULSE 82; TEMP 36.8; O2SAT 98
[2017-06-10] MEDS ORDERED: INSULIN ASPART 100 UNITS/ML 3 ML PEN SC SCH ×2 (04:00→07:00)
[2017-06-10 04:20] LABS: BUN/CREATININE RATIO 10.4 (10-20); CALCIUM 8.2 mg/dl (8.5-10.1); CREATININE 0.75 mg/dl (0.60-1.40); POTASSIUM 4.2 mmol/L (3.5-5.1)
[2017-06-10 04:21] LABS: PHOSPHORUS 3.5 mg/dl (2.5-4.9)
[2017-06-10 08:00] VITALS: BP 104/66; PULSE 76; TEMP 36.4; O2SAT 98
[2017-06-10] MEDS: AMOXICILLIN/CLAVULANATE TAB 875 MG TAB PO SCH (08:02)
[2017-06-10 08:11] LABS: HEMATOCRIT 38.7 % (42-52); MEAN CELL VOLUME 95.1 fL (80-100); MEAN CORPUSCULAR HEMOGLOBIN 31.7 pg (25-34); MEAN CORPUSCULAR HGB CONC 33.3 g/dl (32-36); MEAN PLATELET VOLUME 8.3 fL (7.4-10.4); PLATELET COUNT 214 K/uL (130-400); RED BLOOD COUNT 4.07 M/uL (4.7-6.1); WHITE BLOOD COUNT 12.96 K/uL (4.8-10.8)
[2017-06-10 08:46] LABS: BUN/CREATININE RATIO 7.9 (10-20); CALCIUM 8.3 mg/dl (8.5-10.1); CREATININE 0.73 mg/dl (0.60-1.40); MAGNESIUM 1.9 mg/dl (1.8-2.4); POTASSIUM 3.7 mmol/L (3.5-5.1)
[2017-06-10] MEDS ORDERED: INSULIN GLARGINE SOLOSTAR 100 UNITS/ML 3 ML PEN SC SCH (09:00)
--- NOTE | 2017-06-10 10:22 | Discharge Instructions ---
Discharge Instructions Date of Service Jun 10, 2017. Admission Reason for Admission: DKA Discharge Discharge Diagnosis / Problem: diabetes ketoacidosis, left-sided facial abscess Discharge Goals Goal(s): Decrease discomfort, Improve function Activity Recommendations Activity Limitations: resume your previous activity Lifting Limitations: none . Instructions / Follow-Up Instructions / Follow-Up You had presented to the ER with complaints of facial swelling and pain. You were being treated for a left nipple infection with Keflex. In the ER he was found to have an elevated blood sugar and found to be in ketoacidosis. You were started on an insulin drip to normalize your blood sugars and gradually transitioned to subcutaneous insulin . Diabetes type 1: - Continue to use home dose Lantus 25 units SC AMPM - Continue to use NovoLog with sliding scale BID - Please follow-up with endocrinology and your primary care physician Left-sided facial abscess: - Continue to use Keflex 500 mg 4 times a day for 10 days and Bactrim DS twice daily for 10 days. - Use Hibiclens soap wash to clean your skin, use it sparingly on the face - Please return to the ER if you develop worsening of the swelling, fevers or chills - Use warm compresses on affected area Please follow up with your PCP in 2-3 days as your abscess might need to be drained Current Hospital Diet Patient's current hospital diet: Diabetes Type 1 Diet Discharge Diet Recommended Diet: Diabetes Type 1 Diet Pending Studies Studies pending at discharge: yes List of pending studies: Blood cultures Laboratory Results Hemoglobin A1c Test 04/13/17 04:25 Range/Units Estimated Average Glucose 272 mg/dl Hemoglobin A1c 11.1 H 4.5-5.6 % Medical Emergencies . Who to Call and When: Medical Emergencies: If at any time you feel your situation is an emergency, please call 911 immediately. . Non-Emergent Contact Non-Emergency issues call your: Primary Care Provider . . "Provider Documentation" section prepared by Thu Avila. . VTE Core Measure Inpt VTE Proph given/why not?: Refusal of treatmnt by pt
[2017-06-10 11:20] VITALS: BP 115/74; PULSE 88; TEMP 36.4; O2SAT 100
[2017-06-10] MEDS ORDERED: SEPTRA DS HOME PACK 1 EA VIAL PO ONE (11:30)
[2017-06-10] MEDS ORDERED: SULF800T23 PO (11:30)
[2017-06-10] MEDS ORDERED: CEPH500C PO (11:30)
[2017-06-10] MEDS ORDERED: CEPHALEXIN 500MG HOME PACK 1 EA BTL PO ONE (11:30)
--- NOTE | 2017-06-10 11:36 | Discharge Summary ---
Discharge Summary Date of Service Jun 10, 2017. (Thu Avila MD) Discharge Summary Admission Date: Jun 09, 2017 at 17:17 Discharge Date: Jun 10, 2017 Discharge Disposition: Home Principal Diagnosis: DKA. 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 He was started on insulin drip and monitored. On examining the patient today, he was adamant on leaving and stated that he had to get to work on Sunday. He denies any nausea, vomiting or abdominal pain. Denied any fevers or chills. Review of Systems: Constitutional: No fever, No chills Eyes: No worsening of vision ENT: No hearing loss Respiratory: No cough, No sputum Cardiovascular: No chest pain Abdomen: No pain, No nausea, No vomiting Musculoskeletal: No joint pain Genitourinary - Male: No hematuria, No dysuria Neurologic: No memory loss Psychiatric: No depression symptoms Endocrine: No fatigue Physical Exam: General Appearance: WD/WN, no apparent distress, + thin Eyes: normal inspection ENT: hearing grossly normal, + pertinent finding (Left-sided facial swelling with a small cut, dried blood and pus) Neck: supple Respiratory/Chest: lungs clear, normal breath sounds, no respiratory distress, + pertinent finding (Left nipple inner upper quadrant appears indurated and scabbed over. No drainage) Cardiovascular: regular rate, rhythm Abdomen / GI: non tender, soft Extremities: normal inspection, no calf tenderness, no pedal edema Neurologic/Psychiatric: alert, oriented x 3 (Thu Avila MD) Hospital Course 26-year-old male with a past medical history of type 1 diabetes presented to the ER with complaints of a facial swelling and pain. He had initially presented to the ER about 4 days ago with left nipple infection and was recommended to take Keflex. 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 In the ER he was found to have an elevated blood sugar and was found to be in DKA And was also found to have a slight bump in his white count. He was admitted for managing his DKA and was started on an insulin drip. He had initially received vancomycin and Zosyn in the ER for the left facial abscess with an I&D. this was later switched to Augmentin. By early Next morning , his anion gap had closed and his blood sugars were better controlled. He was restarted on his home regimen of insulin, The patient insisted on being discharged as he had to report to work the next day. He was explained about the possibility of his facial abscess getting worse and recommended to remain in the hospital for further observation but he declined and wanted to use oral antibiotics to manage it. He was discharged with Keflex 500 mg 4 times a day for 10 days and Bactrim DS twice daily for 10 days.He was recommended to use warm compresses on the affected area and use Hibiclens to decrease bacterial load on the skin as he seemed to have recurrent skin infections. He was given a home pack of both antibiotics He was recommended to follow with his primary care doctor or report to the ER If he developed any fever/chills or if his infection appeared to worsen. For his diabetes, he was restarted on his home dose of insulin and recommended to follow up with His lead mechanic. Total Time Spent: Less than 30 minutes This includes examination of the patient, discharge planning, medication reconciliation, and communication with other providers. (Thu Avila MD) Resident Physician Supervision Note: I was present with Dr. Avila during the history and exam. I discussed the case with the resident and agree with the findings and plan as documented in the note. Any exceptions or clarifications are listed here: The patient strongly desired discharge today. I think discharge is reasonable and safe provided he has short term follow up for both his diabetes as well as his localized skin infections (left nipple area and left facial cheek). Agree with discharge on Keflex and Bactrim, as well as attempt to eradicate colonization with HebiClens soap. He will need PCP follow up in 1-2 days, and he as assured me he understands the risk of progressive infection, especially in light of his diabetes. Documented By: Robert Moseley Total Time Spent: Greater than 30 minutes Discharge, including preparing prescriptions, reviewing instructions with patient, and performing an exam today took 50 minutes. (Robert Moseley.,D.O.) Discharge Instructions Please refer to the electronic Patient Visit Report (Discharge Instructions) for additional information. (Thu Avila MD) Follow-Up Follow-up with PCP in 2-3 days. Follow-up with endocrinology (Thu Avila MD) Resident Tracking Resident Involvement: Resident Care Provided Care Provided: Adult Hospital Medicine (Thu Avila MD)
[2017-06-10 11:42] VITALS: BP 115/74; PULSE 88; TEMP 36.4; O2SAT 100
== END 2017-06-10 12:00 | disposition home or self-care (01) | DRG 638 ==
LOC: C.EDB 14:59 → C.2T 17:17 → ENRESERV 17:51
PROVIDERS: ADMIT Internal Medicine; ATTEND Internal Medicine
PROC: 0H91XZZ Drainage of Face Skin, External Approach (ICD-10-PCS; principal; 2017-06-09)
DX: E10.10 Type 1 diabetes mellitus with ketoacidosis without coma (principal); L03.211 Cellulitis of face; L02.01 Cutaneous abscess of face; N61.1 Abscess of the breast and nipple; F17.200 Nicotine dependence, unspecified, uncomplicated; Z79.4 Long term (current) use of insulin; Z86.14 Personal history of Methicillin resistant Staphylococcus aureus infection

== ENCOUNTER → 2017-06-18 | Outpatient (CLI) | payer OTHER ==
[~2017-06-18] MED LIST changes: +SULF800T23 PO
== END | disposition home or self-care (01) ==
LOC: C.LAB 01:39
DX: Z02.83 Encounter for blood-alcohol and blood-drug test (principal)

== ENCOUNTER → 2017-12-03 | Day surgery (SDC) | payer OTHER ==
[2017-11-16 07:47] VITALS: Ht 182.9 cm; Wt 78.6 kg
[~2017-12-03] VITALS: Ht 182.9 cm; Wt 78.6 kg
[~2017-12-03] MED LIST changes: +500ML BSSPLUS 0.5ML EPI1:1000 IRRIG ONE; +ACETAMINOPHEN 325 MG TAB PO PRN; +ATROPINE SULFATE 0.1 MG/ML 5ML SYR IV PRN; +ATROPINE SULFATE 1% OP OINT PER APPLICATION CHARGE ONE; +ATROPINE SULFATE 1% OP SOLN 5 ML BTL OPL ONE; +BSS FLUSH ONE; +BUPIVACAINE HCL 0.75% 10 ML AMP/VIAL ONE; +CEFAZOLIN SOD 1 GM VIAL ONE; -CEPH500C PO; +DEXAMETHASONE SOD INJ 4 MG/ML VIAL ONE; +EpHEDrine SULFATE INJ 50 MG/ML AMP IV PRN; +EpINEphrine INJ 1MG/ML AMP 1 MG/ML AMP ONE; +FENTANYL CITRATE INJ 50 MCG/1 ML 2 ML VIAL IV PRN; +FENTANYL CITRATE INJ 50 MCG/1 ML 2 ML VIAL ONE; +HYALURONIDASE HUMAN 150 UNIT/ML INJ ONE; +HYDROmorphone INJ 1 MG/ML SYR IV PRN; -INSDGIPEN SC; +INSULIN NPH SC; +LACTATED RINGER'S 1000ML 500 ML IV SCH; +LIDOCAINE HCL 2% 2 ML VIAL (20MG/ML) ONE; +MIDAZOLAM HCL 1 MG/ML 2ML VIAL ONE; +NEOMYCIN/POLYMYX/DEXAMETH OP OINT PER APP CHARGE ONE; +OCUCOAT 1 ML SOLN IO ONE; +OMEP20CA9 PO; +ONDANSETRON INJ 2 MG/ML 2 ML VIAL IV PRN; +PHENYLEPHRINE HCL 2.5% OP SOLN PER DROP CHARGE OPL SCH; +POVIDONE-IODINE OP SOLN (SURGERY CNTR CHARGING ONLY) ONE; +PROPARACAINE 0.5% OP SOLN PER DROP CHARGE OPL SCH; +PROPOFOL IV EMULSION 10 MG/ML 20 ML VIAL IV ONE; -SULF800T23 PO; +TIMOLOL MALEATE 0.5% OP SOLN PER DROP CHARGE ONE; +TROPICAMIDE 1% OP SOLN PER DROP CHARGE OPL SCH
[2017-12-03] MEDS: PHENYLEPHRINE HCL 2.5% OP SOLN PER DROP CHARGE OPL SCH ×2 (07:24→07:34)
[2017-12-03] MEDS: TROPICAMIDE 1% OP SOLN PER DROP CHARGE OPL SCH ×2 (07:25→07:35)
--- NOTE | 2017-12-03 08:34 | History & Physical Bridge - SC ---
H&P Re-Evaluation Bridge Note: Pt has diabetic retinopathy with retinal detachment left eye and is having vitrectomy left eye. I have examined the patient, reviewed the History & Physical and in the interval since the performance of the History & Physical I have noted the following changes of clinical significance: No changes noted
--- NOTE | 2017-12-03 10:31 | [facility] Operative Report ---
Operative Report Operative Date Dec 03, 2017. Pre-Operative Diagnosis Left Eye Diabetic Retinopathy Post-Operative Diagnosis Same Procedure(s) Performed Left Eye 23 Gauge Vitrectomy With Laser and Insertion of Oil Surgeon Dr. Forte Floral Assistant Surgeon(s) None Estimated Blood Loss 0 Specimens None Anesthesia Type MAC I attest to the content of the Intraoperative Record and any orders documented therein. Any exceptions are noted below.
--- NOTE | 2017-12-03 10:32 | [facility] Operative Report ---
Operative Report Date of Service Dec 03, 2017. 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 PROCEDURE: 1. Pars plana vitrectomy, 23 gauge. 2. Membrane peeling. 3. Segmentation of traction. 4. Cho retinal photocoagulation with endolaser. 5. Fluid air exchange. 6. Instillation of silicone oil. All to the left eye. CPT CODE: 03710 SURGEON: Trevin Forte D.O. COMPLICATIONS: None. ESTIMATED BLOOD LOSS: None. SPECIMENS: None. ANESTHESIA: Retrobulbar block and MAC INDICATIONS FOR PROCEDURE: Surgery is indicated to decrease risk of vision loss and potentially improve vision. CONSENT: The risks, benefits and alternatives were discussed with the patient including but not limited to decreased visual acuity, failure to achieve desired results, loss of the eye, infection, pain, glaucoma, lens changes, retinal tears, retinal detachment, the need for more procedures, drooping of the eyelid, blindness, and double vision. The patient is aware of risks and consents to the surgery. Consent is signed and on the chart. OPERATION AND FINDINGS: The patient was brought to the operating room where the patient was identified by name, date, and medical record number. The surgical site was confirmed with the informed written consent. The patient was sedated by the anesthesiology team after which a 50:50 mixture of 2% lidocaine and 0.75% bupivacaine with hyaluronidase was administered in a standard retrobulbar fashion. A total of 4 ml was administered without difficulty. The patient was then prepped and draped in the usual sterile manner for retinal surgery. A wire lid speculum was placed and an Herbie 23-gauge trocar cannula system was employed. The inferior temporal trocar cannula was first placed in an angled fashion 3.75mm posterior to the surgical limbus and the infusion cannula was inserted into this cannula after which the intravitreal position was verified prior to turning the infusion on. Two more trocar cannulas were then inserted in an angled fashion, one in the superior temporal, and one in the superior nasal quadrant both 3.75mm posterior to the surgical limbus. A light pipe and vitrector were then introduced into the eye and the BIOM wide angle viewing system was brought into place. Posterior inspection revealed proliferative diabetic retinopathy with tractional retinal detachment involving the macula and extending to the midperiphery. There were noted large plaques of fibrovascular membranes and nonclearing vitreous hemorrhage. The vasculature was ischemic. Standard vitrectomy was performed after which the vitrector and and scissors were used to peel and segment the diabetic membranes causing the tractional detachment. The bleeding was controlled with endocautery and several retinal breaks were noted just outside of the arcades. Endolaser was used to perform cho retinal photocoagulation in the areas of flat retina in the periphery. Fluid air exchange was performed through the existing retinal breaks and the retina flattened. Laser was placed surrounding the retinal breaks. Silicone oil 1,000 cs was injected into the eye for a near complete fill. The trocar cannulas were then removed and 8-0 Vicryl suture was placed as needed. The intraocular pressure was found to be within normal limits by palpation and subconjunctival injections of Kefzol and dexamethasone were administered inferiorly and superiorly. The wire lid speculum was removed. Maxitrol and Atropine ointments were applied to the surface of the eye. A light patch and shield were taped over the surface of the eye and the patient left the Operating Room in stable condition having tolerated the procedure well. DISPOSITION: The patient has an appointment the following morning in the Ophthalmology Clinic. The patient is to call immediately if there are any problems overnight. I attest to the content of the Intraoperative Record and any orders documented therein. Any exceptions are noted below.
--- NOTE | 2017-12-03 10:33 | Discharge Instructions-SurgCtr ---
Discharge Instructions Date of Service Dec 03, 2017. Visit Reason for Visit: Left Eye Diabetic Retinopathy Discharge Discharge Diagnosis / Problem: same Discharge Goals Goal(s): Improve function Activity Recommendations Activity Limitations: per Instructions/Follow-up section Anesthesia . Post Anesthesia Instructions: If you have had General Anesthesia or IV Sedation: * Do not drive today. * Resume driving when surgeon permits. * Do not make important decisions or sign legal documents today. * Call surgeon for: 1. Temperature elevations greater than 101 degrees F. 2. Uncontrollable pain. 3. Excessive bleeding. 4. Persistent nausea and vomiting. 5. Medication intolerance (nausea, vomiting or rash). * For nausea and vomiting use only clear liquids such as: tea, soda, bouillon until nausea subsides, then gradually increase diet as tolerated. * If you have any concerns or questions, call your surgeon's office. If physician is unavailable and it is an emergency, call 911 or go to the nearest emergency room. . Instructions / Follow-Up Instructions / Follow-Up * May take Tylenol if needed for discomfort. * Do NOT lay flat on back and position head as follows: face foward chin down as much as possible; sleep left side down and stay off of back * Do NOT remove eye shield. * NO straining, heavy lifting (>15 pounds) or bending below waist. * Avoid getting water or soap directly into operative eye. * Do NOT rub eye. If you experience increasing eye pain not relieved by medication, please contact us immediately at [phone]. If you are unable to reach someone at the above number, call [phone] and ask to speak with the EYE DOCTOR HYDROPULPER. Inform them that you are a Dr. Forte patient who had recent surgery. Diet Recommendations Home Diet: resume previous diet Procedures Procedures Performed: Left Eye 23 Gauge Vitrectomy With Laser and Insertion of Oil Pending Studies Studies pending at discharge: no Medical Emergencies . Who to Call and When: Medical Emergencies: If at any time you feel your situation is an emergency, please call 911 immediately. . Non-Emergent Contact Non-Emergency issues call your: Gunner'S Mate G . . "Provider Documentation" section prepared by Trevin Forte. .
[2017-12-03 10:35] VITALS: TEMP 36.3
--- NOTE | 2017-12-03 10:44 | Anesthesia Progress Nt - [facility] ---
Anesthesia Post Op Note Date & Time Dec 03, 2017 at 10:44 Vital Signs Pain Intensity: 0 Vital Signs Past 12 Hours Date Time Temp Pulse Resp B/P (MAP) Pulse Ox O2 Delivery O2 Flow Rate FiO2 12/03/17 10:35 36.3 88 16 125/86 (99) 99 Room Air 12/03/17 07:21 33.4 85 20 134/90 (105) 99 Room Air Notes Mental Status: alert / awake / arousable, participated in evaluation Pt Amnestic to Procedure: Yes Nausea / Vomiting: adequately controlled Pain: adequately controlled Airway Patency, RR, SpO2: stable & adequate BP & HR: stable & adequate Hydration State: stable & adequate Anesthetic Complications: no major complications apparent
[2017-12-03 11:02] VITALS: BP 124/80; PULSE 85; O2SAT 100
== END | disposition home or self-care (01) ==
LOC: X.SURG 07:08
PROVIDERS: ATTEND Ophthalmology
DX: E10.3592 Type 1 diabetes mellitus with proliferative diabetic retinopathy without macular edema, left eye (principal); H33.42 Traction detachment of retina, left eye; H43.12 Vitreous hemorrhage, left eye; K21.9 Gastro-esophageal reflux disease without esophagitis; Z79.899 Other long term (current) drug therapy; Z79.4 Long term (current) use of insulin; Z87.891 Personal history of nicotine dependence; Z82.49 Family history of ischemic heart disease and other diseases of the circulatory system